=== PATIENT | male | born 1945 | race Caucasian/White ===

== ENCOUNTER → 2020-05-11 07:54 | Outpatient (BNVA) | payer OTHER, SELFPAY | PROVIDERS: Family Provider Emergency Medicine Emergency Medical Services; PCP Emergency Medicine Emergency Medical Services; Visit Provider Urology | DX: R97.20 Elevated prostate specific antigen [PSA] (principal); N13.8 Other obstructive and reflux uropathy; N40.1 Benign prostatic hyperplasia with lower urinary tract symptoms | CPT/HCPCS: 81003; 84153 ==

== ENCOUNTER → 2020-06-22 08:17 | Outpatient (BNVA) | payer OTHER, SELFPAY | PROVIDERS: Family Provider Emergency Medicine Emergency Medical Services; PCP Emergency Medicine Emergency Medical Services; Visit Provider Urology | DX: N40.1 Benign prostatic hyperplasia with lower urinary tract symptoms (principal) | CPT/HCPCS: 81003 ==

== ENCOUNTER → 2020-10-24 08:08 | Outpatient (BNVA) | payer OTHER, SELFPAY | PROVIDERS: Family Provider Emergency Medicine Emergency Medical Services; PCP Emergency Medicine Emergency Medical Services; Visit Provider Urology | DX: R97.20 Elevated prostate specific antigen [PSA] (principal); N40.1 Benign prostatic hyperplasia with lower urinary tract symptoms | CPT/HCPCS: 81003; 84153 ==

== ENCOUNTER → 2021-04-25 07:53 | Outpatient (BNVA) | payer OTHER, SELFPAY | PROVIDERS: Family Provider Emergency Medicine Emergency Medical Services; PCP Emergency Medicine Emergency Medical Services; Visit Provider Urology | DX: N40.1 Benign prostatic hyperplasia with lower urinary tract symptoms (principal); R97.20 Elevated prostate specific antigen [PSA] | CPT/HCPCS: 81003 ==

== ENCOUNTER → 2021-10-26 09:16 | Outpatient (BNVA) | payer OTHER, SELFPAY | PROVIDERS: Family Provider Emergency Medicine Emergency Medical Services; PCP Emergency Medicine Emergency Medical Services; Visit Provider Urology | DX: N40.1 Benign prostatic hyperplasia with lower urinary tract symptoms (principal); R97.20 Elevated prostate specific antigen [PSA]; N39.41 Urge incontinence; Z80.42 Family history of malignant neoplasm of prostate | CPT/HCPCS: 36415; 51741; 51798; 52000; 81003; 84153; 99213 ==

== ENCOUNTER 2022-05-01 10:41 | Outpatient (CLI) | payer OTHER, SELFPAY ==
[2022-05-01 11:52] LABS: Prostate Specific AG Urology 3.99 ng/mL (0-4)
== END 2022-05-01 10:42 | disposition home or self-care (01) ==
PROVIDERS: PCP Emergency Medicine Emergency Medical Services; Visit Provider Urology
DX: R97.20 Elevated prostate specific antigen [PSA] (principal)
CPT/HCPCS: 36415; 84153

== ENCOUNTER → 2022-05-07 12:59 | Outpatient (BNVA) | payer OTHER, SELFPAY | PROVIDERS: PCP Emergency Medicine Emergency Medical Services; Visit Provider Urology | DX: N40.1 Benign prostatic hyperplasia with lower urinary tract symptoms (principal); R97.20 Elevated prostate specific antigen [PSA]; N39.41 Urge incontinence; Z80.42 Family history of malignant neoplasm of prostate | CPT/HCPCS: 51798; 81003; 99213 ==

== ENCOUNTER 2022-11-01 10:15 | Emergency (ER) | payer OTHER, SELFPAY ==
[2022-11-01 10:42] VITALS: BP 175/80; PULSE 92; RESP 16; TEMP 36.7; O2SAT 98; BMI 28.7
[2022-11-01 11:09] LABS: Basophils % 0.2 %; Eosinophils # 0.1 10^3/uL (0.0-0.8); Eosinophils % 2.1 %; Hematocrit 45.8 % (37-53); Lymphocytes # 1.5 10^3/uL (0.8-4.8); Lymphocytes % 25.1 %; Mean Corpuscular HGB Conc 31.9 g/dL (30-55); Mean Corpuscular Hemoglobin 28.4 pg (27-33); Mean Corpuscular Volume 89.1 fl (82-101); Mean Platelet Volume 9.2 fL (7.4-10.4); Monocytes # 0.6 10^3/uL (0.2-0.9); Monocytes % 9.9 %; Neutrophils # 3.78 10^3/uL (1.8-7.7); Neutrophils % 62.5 %; Nucleated Red Blood Cells % 0 %; Platelet Count 225 10^3/cmm (157-399); Red Blood Count 5.14 10^6/uL (3.85-5.65); Red Cell Distribution Width 12.9 % (12.1-15.1); White Blood Count 6.05 10^3/uL (3.29-11.43)
[2022-11-01 11:28] LABS: INR 1.34 (0.8-1.2)
[2022-11-01 11:32] LABS: Alanine Aminotransferase 14 U/L (0-41); Albumin Level 4.4 g/dL (3.5-5.2); Alkaline Phosphatase 82 U/L (40-130); Anion Gap 11.9 (5-19); Aspartate Amino Transferase 17 U/L (0-40); Blood Urea Nitrogen 18 mg/dL (8-23); Calcium 9.4 mg/dL (8.5-10.5); Carbon Dioxide 30 mmol/L (22-29); Chloride 100 mmol/L (98-107); Creatinine Clr Calc Pharmacy 64.7169; Globulin 3.2 g/dL (1.3-4.6); Glucose 132 mg/dL (65-115); Osmolality Calculated 290 mOsm/kg (285-295); Potassium 3.9 mmol/L (3.5-5.1); Sodium 138 mmol/L (136-145); Total Bilirubin 0.4 mg/dL (0.15-1.2); Total Protein 7.6 g/dL (6.6-8.7)
[2022-11-01 13:30] VITALS: BP 179/89; PULSE 69; O2SAT 100
--- NOTE | 2022-11-01 13:41 | ED_ITS ---
HPI - Abdominal Pain General: Chief Complaint: Abdominal Pain Stated Complaint: [facility] Time Seen by Provider: 11/01/22 13:36 Source: patient Mode of arrival: ambulatory History of Present Illness: 77-year-old male presents to the emergency room with complaints of rectal bleeding for the last 3 to 4 days. It is streaking on the stool slightly discolored the water but has not completely discolor the toilet water. He has been intermittently having bleeding last couple of days. He is on Pradaxa for atrial fibrillation which she stopped taking yesterday he also has some mild left lower quadrant discomfort extending into the suprapubic area denies dysuria urgency or frequency. MD elicited complaint: abdominal pain Onset (ago): day(s) (4) Pain Consistency: intermittent Location: None Severity: mild Quality: cramping Radiation: suprapubic Exacerbating factors: nothing Relieving factors: nothing Associated Symptoms: Reports hematochezia; Denies no associated symptoms, anorexia, belching, bloating, change in bowel habits, change in stool character, chills, coffee ground emesis, constipation, GI cramping, diarrhea, dyspepsia, dysuria, excessive flatus, fever(s), heartburn, hematuria, hematemesis, fecal incontinence, loose stools, melena, nausea, poor appetite, syncope, vomiting and other Review of Systems Const: Denies: fever(s) or chills ENMT: Denies: throat pain, ear or mastoid pain, nasal discharge or nasal congestion Card: Denies: chest pain or syncope Resp: Denies: dyspnea, productive cough or non-productive cough GI: Reports: abdominal pain and hematochezia; Denies: nausea, vomiting, hematemesis, coffee ground emesis, heartburn, diarrhea, constipation, bloating, GI cramping, belching, excessive flatus, fecal incontinence, change in bowel habits, change in stool character, melena or other : Denies: dysuria, urinary frequency, urinary urgency or hematuria Skin/Breast: Denies: rash or pruritus PFS ED PFSH: Medical History BPH loc w urin obs/LUTS COPD (chronic obstructive pulmonary disease) Diabetes mellitus Elevated PSA Essential hypertension Heart disease Psoriasis PTSD (post-traumatic stress disorder) Unspecified atrial fibrillation Surgical History Hx of heart artery stent Family History Brother , AT AGE 56 PROSTATE Cancer Sister Cancer 2 SISTERS WITH BREAST CANCER Father , AT AGE 83 HEART ATTACK CAD (coronary artery disease) MOTHER AT AGE 86 UNKNOWN CAUSE Mother , at age 89 No problems noted. Social History Smoking and tobacco status: former smoker Second hand smoke exposure: Yes ( SMOKES) Alcohol intake: never Marital status: Current occupational status: retired Physical Exam Const: GENERAL APPEARANCE: cooperative and comfortable ORIENTATION/CONSCIOUSNESS: Yes awake, Yes oriented to person, Yes oriented to place and Yes oriented to time HENMT: COMMON NORMALS: normocephalic, atraumatic and hearing grossly normal bilaterally HEAD & SCALP: normocephalic and atraumatic Resp: COMMON NORMALS: normal respiratory effort, No retractions, No use of accessory muscles and clear to auscultation bilaterally AUSCULTATION: clear to auscultation bilaterally Cardio: COMMON NORMALS: regular rate, regular rhythm and No murmurs present (Cardio) RATE: regular rate RHYTHM: regular rhythm GI: COMMON NORMALS: No hepatosplenomegaly present AUSCULTATION: Yes normoactive bowel sounds PALPATION: Yes Tenderness to palpation present (GI) Details: LLQ (Mild), No Guarding due to palpation present (GI) and Yes No hepatosplenomegaly present Extremity: COMMON NORMALS: normal to inspection, capillary refill normal, no clubbing, cyanosis or edema, no calf tenderness and no pedal edema Neuro: SENSORIUM/ORIENTATION: Yes oriented to person, Yes oriented to place and Yes oriented to time Skin: COMMON NORMALS: no rashes or lesions noted GENERAL SKIN EXAM: no rashes or lesions noted Course Vital Signs: Vital signs: Vital Signs Temperature 98.1 F 11/01/22 10:42 Pulse Rate 69 11/01/22 13:30 Respiratory Rate 16 11/01/22 10:42 Blood Pressure 179/89 11/01/22 13:30 Pulse Oximetry 100 11/01/22 13:30 Oxygen Delivery Me thod Room Air 11/01/22 13:30 MDM - Abdominal Pain Medical Decision Making Hemoglobin stable vital signs stable as well as not tachycardic. He is having some streaking blood stool intermittently. Recommend holding the Pradaxa for 1 week start oral antibiotics for diverticulitis follow-up with primary care in the end of week if not improving or if bleeding worsens return to the emergency room or with primary care. Medical Records I reviewed the patient's medical records. Lab Data I reviewed the patient's lab results. 11/01/22 11:03 11/01/22 11:03 Labs/Radiology: Laboratory Results WBC 6.05 10^3/uL (3.29-11.43) 11/01/22 11:03 RBC 5.14 10^6/uL (3.85-5.65) 11/01/22 11:03 Hgb 14.60 g/dL (11.27-16.99) 11/01/22 11:03 Hct 45.8 % (37-53) 11/01/22 11:03 MCV 89.1 fl (82-101) 11/01/22 11:03 MCH 28.4 pg (27-33) 11/01/22 11:03 MCHC 31.9 g/dL (30-55) 11/01/22 11:03 RDW 12.9 % (12.1-15.1) 11/01/22 11:03 Plt Count 225 10^3/cmm (157-399) 11/01/22 11:03 MPV 9.2 fL (7.4-10.4) 11/01/22 11:03 Neut % (Auto) 62.5 % 11/01/22 11:03 Lymph % (Auto) 25.1 % 11/01/22 11:03 Angelina % (Auto) 9.9 % 11/01/22 11:03 Eos % (Auto) 2.1 % 11/01/22 11:03 Baso % (Auto) 0.2 % 11/01/22 11:03 Neut # (Auto) 3.78 10^3/uL (1.8-7.7) 11/01/22 11:03 Lymph # (Auto) 1.5 10^3/uL (0.8-4.8) 11/01/22 11:03 Angelina # (Auto) 0.6 10^3/uL (0.2-0.9) 11/01/22 11:03 Eos # (Auto) 0.1 10^3/uL (0.0-0.8) 11/01/22 11:03 Baso # (Auto) 0.0 10^3/uL (0.0-0.1) 11/01/22 11:03 Nucleated RBC % (auto) 0 % 11/01/22 11:03 Nucleated RBCs # 0.0 /100WBC 11/01/22 11:03 PT 17.00 SECONDS (12.1-14.9) H 11/01/22 11:03 INR 1.34 (0.8-1.2) H 11/01/22 11:03 Sodium 138 mmol/L (136-145) 11/01/22 11:03 Potassium 3.9 mmol/L (3.5-5.1) 11/01/22 11:03 Chloride 100 mmol/L (98-107) 11/01/22 11:03 Carbon Dioxide 30 mmol/L (22-29) H 11/01/22 11:03 Anion Gap 11.9 (5-19) 11/01/22 11:03 BUN 18 mg/dL (8-23) 11/01/22 11:03 Creatinine 1.1 mg/dL (0.7-1.2) 11/01/22 11:03 GFR Calculation Not Reportable 11/01/22 11:03 Glucose 132 mg/dL (65-115) H 11/01/22 11:03 Calculated Osmolality 290 mOsm/kg (285-295) 11/01/22 11:03 Calcium 9.4 mg/dL (8.5-10.5) 11/01/22 11:03 Total Bilirubin 0.4 mg/dL (0.15-1.2) 11/01/22 11:03 AST 17 U/L (0-40) 11/01/22 11:03 ALT 14 U/L (0-41) 11/01/22 11:03 Alkaline Phosphatase 82 U/L (40-130) 11/01/22 11:03 Total Protein 7.6 g/dL (6.6-8.7) 11/01/22 11:03 Albumin 4.4 g/dL (3.5-5.2) 11/01/22 11:03 Globulin 3.2 g/dL (1.3-4.6) 11/01/22 11:03 Discharge Plan Discharge Patient Disposition: Home Clinical Impression: Diverticulitis, Rectal bleeding, History of atrial fibrillation Condition: Stable Prescriptions: New Cipro 500 mg tablet 500 mg PO BID Qty: 14 0RF metronidazole 500 mg tablet 500 mg PO BID 7 Days Qty: 14 0RF No Action losartan 100 mg tablet 100 mg PO DAILY hydrochlorothiazide 25 mg tablet 25 mg PO DAILY potassium chloride 10 mEq capsule, extended release 10 meq PO DAILY diltiazem HCl 120 mg capsule,extended release 24hr 120 mg PO DAILY pravastatin 10 mg tablet 10 mg PO DAILY Pradaxa 150 mg capsule 150 mg PO BID adalimumab 40 mg/0.8 mL pen injector kit See Rx Instructions SUBCUT .WEEKLY Rx Instructions: inject one - 40 mg/0.8 mL pen every week SUBCUT .WEEKLY; cholecalciferol (vitamin D3) 625 mcg (25,000 unit) capsule PO aspirin [Adult Aspirin Regimen] 81 mg tablet,delayed release (DR/EC) 81 mg PO DAILY finasteride 5 mg tablet 5 mg PO QDAY Qty: 90 3RF oxybutynin chloride 5 mg tablet 5 mg PO BID Qty: 180 3RF tamsulosin 0.4 mg capsule 0.8 mg PO .AT BEDTIME Qty: 180 3RF Discharge Orders: Discharge ED (Routine); Ordered 11/01/22 Ordered By: Hipolito Fernández Referrals: Satish Garza DO [Primary Care Provider] - Discharge Diet: Usual diet Discharge Activity: Increase activity as tolerated Patient Instructions: Opioid Safety, Pain Management Activity Restrictions/Additional Instructions: You were seen today for rectal bleeding. Based on your history and presentation and exam you have diverticulitis. Recommend oral antibiotics x1 week. Hold the Pradaxa x1 week. If bleeding worsens or does not improve then recheck with your primary care doctor return to the emergency room. Coding Level of Care Code ED Anglesmith Helper for Mary Ball
[2022-11-01 13:56] VITALS: PULSE 68; O2SAT 98
== END 2022-11-01 13:57 | disposition home or self-care (01) ==
PROVIDERS: Emergency Medicine; Emergency Provider Family Medicine; PCP Emergency Medicine Emergency Medical Services
DX: K57.92 Diverticulitis of intestine, part unspecified, without perforation or abscess without bleeding (principal); Z79.82 Long term (current) use of aspirin; Z87.891 Personal history of nicotine dependence; J44.9 Chronic obstructive pulmonary disease, unspecified; E11.9 Type 2 diabetes mellitus without complications; I10 Essential (primary) hypertension
CPT/HCPCS: 36415; 80053; 85025; 85610; 99283

== ENCOUNTER → 2022-11-26 07:59 | Outpatient (BNVA) | payer OTHER, SELFPAY | PROVIDERS: PCP Emergency Medicine Emergency Medical Services; Referring Provider Emergency Medicine Emergency Medical Services; Visit Provider Surgery | DX: Z12.11 Encounter for screening for malignant neoplasm of colon (principal) | CPT/HCPCS: 99203 ==

== ENCOUNTER 2023-01-10 06:23 | Day surgery (SDC) | payer OTHER, SELFPAY ==
--- NOTE | 2023-01-10 05:54 | W.PM.OPSFHP ---
Same Day Surgery H&P Indication for Procedure/HPI DATE OF PROCEDURE: January 10, 2023 CHIEF COMPLAINT/INDICATIONFOR SURGICAL PROCEDURE: need for screening colonoscopy PREOP DIAGNOSIS: need for screening colonoscopy PLANNED PROCEDURE: Operation Date: 01/10/23 07:40 [place] [address]40 colon G0121 colonoscopy Z12.11(Not Applicable) - Kumar Vega MD Medications/Allergies* Home Medications Medication Instructions Recorded Confirmed Type adalimumab 40 mg/0.8 mL See Rx Instructions SUBCUT .WEEKLY 05/11/20 01/08/23 History subcutaneous pen kit aspirin 81 mg tablet,delayed 81 mg PO DAILY 05/11/20 01/08/23 History release (Adult Aspirin Regimen) cholecalciferol (vitamin D3) 625 625 mcg PO DAILY 05/11/20 01/08/23 History mcg (25,000 unit) capsule dabigatran etexilate 150 mg 150 mg PO BID 05/11/20 01/08/23 History capsule (Pradaxa) diltiazem HCl 120 mg 120 mg PO DAILY 05/11/20 01/08/23 History capsule,extended release 24 hr hydrochlorothiazide 25 mg tablet 25 mg PO DAILY 05/11/20 01/08/23 History losartan 100 mg tablet 100 mg PO DAILY 05/11/20 01/08/23 History potassium chloride 10 mEq 10 meq PO DAILY 05/11/20 01/08/23 History capsule,extended release pravastatin 10 mg tablet 10 mg PO QPM 05/11/20 01/08/23 History tamsulosin 0.4 mg capsule 0.8 mg PO QPM 01/08/23 01/08/23 History Allergies/Adverse Reactions Allergy/AdvReac Type Severity Reaction Status Date / Time albuterol Allergy unknown Verified 01/08/23 12:04 lisinopril Allergy unknown Verified 01/08/23 12:04 nifedipine Allergy Unknown Verified 01/08/23 12:04 prednisone Allergy unknown Verified 01/08/23 12:04 Pertinent History/Comorbid Conditions* Medical History (Updated 11/09/22 @ 00:01 by IAN Weston) BPH loc w urin obs/LUTS COPD (chronic obstructive pulmonary disease) Diabetes mellitus Elevated PSA Essential hypertension Heart disease Psoriasis PTSD (post-traumatic stress disorder) Unspecified atrial fibrillation Surgical History (Updated 05/11/20 @ 09:57 by Valery Cooper APRN) Hx of heart artery stent Family History (Updated 05/11/20 @ 08:00 by JEAN Weiss) Brother, AT AGE 56 PROSTATE Father, AT AGE 83 HEART ATTACK Mother, at age 89 CAD (coronary artery disease) Father MOTHER AT AGE 86 UNKNOWN CAUSE Cancer Brother Sister 2 SISTERS WITH BREAST CANCER Social History Smoking and tobacco/nicotine status: former use of tobacco/nicotine Second hand smoke exposure: Yes ( SMOKES) Alcohol intake: never Marital status: Current occupational status: retired Pertinent Exam Findings alert, oriented x 3 and clear to auscultation bilaterally Recommendations Surgery/Procedure today Coding Level of Care Code Acute Code for Chg Fwd Diagnoses
[2023-01-10 06:42] VITALS: BP 174/99; PULSE 87; RESP 18; TEMP 36.5; O2SAT 98; BMI 28.7
[2023-01-10] MEDS: sodium chloride 0.9% 1,000 ML 30 ML IV (06:44)
--- NOTE | 2023-01-10 07:05 | ANES.PREANE2 ---
Pre-Anesthetic Assessment Height/Weight: Height 1.78 m Weight 90.718 kg Temp Pulse Resp BP Pulse Ox O2 Del Method 97.7 F 87 18 174/99 98 Room Air 01/10/23 06:42 01/10/23 06:42 01/10/23 06:42 01/10/23 06:42 01/10/23 06:42 01/10/23 06:42 Preop Diagnosis: need for screening colonoscopy Operation Date: 01/10/23 07:40 [place] Procedures p 77668 colon G0121 colonoscopy Z12.11(Not Applicable) - Kumar Vega MD Was Beta Chuy taken within 24 hours: N/A Was Clonidine taken within 24 hours: N/A Last intake: Intake Last Liquid Date 01/09/23 Last Liquid Time 22:00 Last Solid Date 01/08/23 Last Solid Time 17:00 Social No alcohol and No tobacco Exam alert, oriented x 3, clear to auscultation bilaterally and regular rate & rhythm Airway Submandibular: within normal limits Cervical ROM: within normal limits Mallampati: Class II Dentition: false History/ROS No significant history except as noted and No significant complaints Pulmonary Chronic Obstructive Pulmonary Disease and Shortness of Breath (CPAP 14 hours/day) CV/HEM Atrial Fibrillation, Coronary Artery Disease and Hypertension None reported Hepatic None reported GI None reported Metabolic Diabetes Mellitus and Hyperlipidemia [facility] [place] Osteoarthritis/DJD Neuropsych Anxiety Anesthetic Plan ASA status: 3 Anesthesia: Anesthesia Evaluation and MAC Risk of > 500 ml blood loss (7ml/kg in children): No Medications/Allergies Home Medications Medication Instructions Recorded Confirmed Last Taken Type adalimumab 40 mg/0.8 mL See Rx Instructions SUBCUT .WEEKLY 05/11/20 01/10/23 01/07/23 History subcutaneous pen kit aspirin 81 mg tablet,delayed 81 mg PO DAILY 05/11/20 01/10/23 01/08/23 History release (Adult Aspirin Regimen) cholecalciferol (vitamin D3) 625 625 mcg PO DAILY 05/11/20 01/10/23 01/09/23 History mcg (25,000 unit) capsule dabigatran etexilate 150 mg 150 mg PO BID 05/11/20 01/10/23 01/06/23 History capsule (Pradaxa) diltiazem HCl 120 mg 120 mg PO DAILY 05/11/20 01/10/23 01/10/23 History capsule,extended release 24 hr hydrochlorothiazide 25 mg tablet 25 mg PO DAILY 05/11/20 01/10/23 01/09/23 History losartan 100 mg tablet 100 mg PO DAILY 05/11/20 01/10/23 01/09/23 History potassium chloride 10 mEq 10 meq PO DAILY 05/11/20 01/10/23 01/09/23 History capsule,extended release pravastatin 10 mg tablet 10 mg PO QPM 05/11/20 01/10/23 01/09/23 History finasteride 5 mg tablet 5 mg PO QDAY #90 tabs 10/24/20 01/10/23 01/09/23 Rx oxybutynin chloride 5 mg tablet 5 mg PO BID #180 tabs 05/07/22 01/10/23 01/09/23 Rx polyethylene glycol 3350 17 17 g PO DAILY #238 grams 11/26/22 01/10/23 01/09/23 Rx gram/dose oral powder (Miralax) tamsulosin 0.4 mg capsule 0.8 mg PO QPM 01/08/23 01/10/23 01/09/23 History Allergies Allergy/AdvReac Type Severity Reaction Status Date / Time albuterol Allergy unknown Verified 01/10/23 06:40 lisinopril Allergy unknown Verified 01/10/23 06:40 nifedipine Allergy Unknown Verified 01/10/23 06:40 prednisone Allergy unknown Verified 01/10/23 06:40 Current Medications Generic Name Dose Route Start Last Admin Trade Name Freq PRN Reason Stop Dose Admin Sodium Chloride 1,000 mls @ 30 mls/hr 01/10/23 06:30 01/10/23 06:44 Sodium Chloride 0.9% IV 30 mls/hr .Q24H PATY Administration PFSH Anesthesia Medical History BPH loc w urin obs/LUTS COPD (chronic obstructive pulmonary disease) Diabetes mellitus Elevated PSA Essential hypertension Heart disease Psoriasis PTSD (post-traumatic stress disorder) Unspecified atrial fibrillation Surgical History Hx of heart artery stent Family History Brother , AT AGE 56 PROSTATE Cancer Sister Cancer 2 SISTERS WITH BREAST CANCER Father , AT AGE 83 HEART ATTACK CAD (coronary artery disease) MOTHER AT AGE 86 UNKNOWN CAUSE Mother , at age 89 No problems noted. Social History Smoking and tobacco/nicotine status: former use of tobacco/nicotine Second hand smoke exposure: Yes ( SMOKES) Alcohol intake: never Marital status: Current occupational status: retired Data Anesthesia Cardiac Studies: No Data to Display
[2023-01-10 08:34] VITALS: BP 106/59; PULSE 63; RESP 20; TEMP 36.1; O2SAT 94
[2023-01-10 08:48] VITALS: BP 115/63; PULSE 68; RESP 17; O2SAT 94
--- NOTE | 2023-01-10 09:05 | ANE.PACU2 ---
Inpatient post-anesthesia follow up: Airway intact: Yes Vital signs: Temperature 97.0 F Pulse Rate 68 Respiratory Rate 17 Blood Pressure 115/63 Pulse Oximetry 94 Oxygen Delivery Me thod Room Air Oxygen Flow Rate Fraction of Inspir ed Oxygen Hydration adequate: Yes Nausea and vomiting: No Pain level: 1 Mental status: Baseline
== END 2023-01-10 09:12 | disposition home or self-care (01) ==
PROVIDERS: PCP Emergency Medicine Emergency Medical Services; Visit Provider Surgery
PROC: 0DJD8ZZ Inspection of Lower Intestinal Tract, Via Natural or Artificial Opening Endoscopic (ICD-10-PCS; CPT 45378; principal; 2023-01-10 07:40)
DX: Z12.11 Encounter for screening for malignant neoplasm of colon (principal); K57.30 Diverticulosis of large intestine without perforation or abscess without bleeding; N40.1 Benign prostatic hyperplasia with lower urinary tract symptoms; N13.8 Other obstructive and reflux uropathy; J44.9 Chronic obstructive pulmonary disease, unspecified; E11.9 Type 2 diabetes mellitus without complications; I11.0 Hypertensive heart disease with heart failure; I50.9 Heart failure, unspecified; Z87.891 Personal history of nicotine dependence; I48.91 Unspecified atrial fibrillation; I25.10 Atherosclerotic heart disease of native coronary artery without angina pectoris
CPT/HCPCS: 45378; J2704; J7030

== ENCOUNTER → 2023-03-13 13:21 | Outpatient (BNVA) | payer OTHER, SELFPAY | PROVIDERS: PCP Emergency Medicine Emergency Medical Services; Referring Provider Emergency Medicine Emergency Medical Services; Visit Provider Internal Medicine Cardiovascular Disease | DX: I48.91 Unspecified atrial fibrillation (principal); Z79.01 Long term (current) use of anticoagulants; J44.9 Chronic obstructive pulmonary disease, unspecified; E78.5 Hyperlipidemia, unspecified; E11.9 Type 2 diabetes mellitus without complications; I11.9 Hypertensive heart disease without heart failure; Z87.891 Personal history of nicotine dependence | CPT/HCPCS: 99204 ==

== ENCOUNTER 2023-03-20 11:50 | Emergency (ER) | payer OTHER, SELFPAY ==
[2023-03-20 11:58] VITALS: BP 128/67; PULSE 95; RESP 16; TEMP 37.1; O2SAT 98; BMI 28.3
--- NOTE | 2023-03-20 12:06 | XR_ITS ---
WS: [id number] XR ankle LT min 3V* [id number] REASON FOR EXAM: injury FINDINGS: Soft tissue swelling around the malleolar line bilaterally. No fracture identified. The joint spaces of the left ankle are intact. IMPRESSION: Soft tissue swelling around the ankle with no bone or joint abnormality identified.
--- NOTE | 2023-03-20 12:06 | XR_ITS ---
WS: [id number] XR foot LT min 3V* [id number] REASON FOR EXAM: injury FINDINGS: No fracture identified. Joint spaces of the forefoot, midfoot, and hindfoot are intact and relatively well preserved for age. Calcaneal enthesophytes. No significant soft tissue abnormality. IMPRESSION: No acute abnormality.
--- NOTE | 2023-03-20 12:09 | XR_ITS ---
WS: [id number] XR knee LT 3V* [id number] REASON FOR EXAM: injury FINDINGS: Oblique fracture of the proximal third of the fibula. Mild anterior displacement of the distal fractu re fragment. No abnormality of the distal femur, tibia, or patella. Joint spaces of the left knee are intact and relatively well preserved. IMPRESSION: Fibular fracture as above.
--- NOTE | 2023-03-20 12:13 | ED_ITS ---
HPI - Extremity Problem General: Chief complaint: Extremity Injury, Lower Stated complaint: [facility], [facility] Time Seen by Provider: 03/20/23 12:06 Source: patient Mode of arrival: ambulatory Limitations: no limitations History of Present Illness: 77-year-old male who states that he had fell on Saturday landed on his left foot and ankle he has had bruising along with pain in that ankle foot and knee. States he is not really able to ambulate on it due to pain. Rates his pain a 5 out of 10 currently it is improved with rest denies any other injuries denies any his head Associated symptoms: Deny chest pain, fever(s) or rash Review of Systems Const: Denies: fever(s), chills, body aches or change in appetite Eyes: Denies: blurry vision or eye discomfort ENMT: Denies: throat pain or dental pain Card: Denies: chest pain Resp: Denies: dyspnea GI: Denies: abdominal pain, nausea, vomiting or diarrhea Musc: Reports: extremity pain; Denies: neck pain or back pain Skin/Breast: Denies: rash Neuro: Denies: headache(s) Psych: Denies: depression PFSH ED PFSH: Medical History Dyslipidemia Essential hypertension Anticoagulation adequate with anticoagulant therapy Psoriasis Unspecified atrial fibrillation Essential hypertension COPD (chronic obstructive pulmonary disease) PTSD (post-traumatic stress disorder) Heart disease Diabetes mellitus BPH loc w urin obs/LUTS Elevated PSA Surgical History Hx of heart artery stent Family History Brother , AT AGE 56 PROSTATE Cancer Sister Cancer 2 SISTERS WITH BREAST CANCER Father , AT AGE 83 HEART ATTACK CAD (coronary artery disease) MOTHER AT AGE 86 UNKNOWN CAUSE Mother , at age 89 No problems noted. Social History Smoking and tobacco/nicotine status: former use of tobacco/nicotine Second hand smoke exposure: Yes ( SMOKES) Alcohol intake: never Marital status: Current occupational status: retired Physical Exam Const: COMMON NORMALS: no acute distress, patient oriented x3 and healthy appearing HENMT: COMMON NORMALS: normocephalic and atraumatic HEAD & SCALP: normocephalic and atraumatic Neck/C-Spine: COMMON NORMALS: full ROM and supple Chest: COMMONS NORMALS: normal inspection of the chest Resp: COMMON NORMALS: normal respiratory effort Cardio: COMMON NORMALS: regular rate, regular rhythm and No murmurs present (Cardio) RATE: regular rate RHYTHM: regular rhythm Extremity: NARRATIVE EXTREMITY EXAM: Bruising noted to left foot along with tenderness to foot and ankle and knee. Neuro: COMMON NORMALS: patient oriented x3, moves all extremities and no focal motor deficits Psych: COMMON NORMALS: mental status grossly normal, Normal thought process present and cooperative THOUGHT PROCESS: Normal thought process present Skin: COMMON NORMALS: no rashes or lesions noted and no wounds GENERAL SKIN EXAM: no rashes or lesions noted Course Vital Signs: Vital signs: Vital Signs Temperature 98.7 F 03/20/23 11:58 Pulse Rate 73 03/20/23 13:01 Respiratory Rate 16 03/20/23 11:58 Blood Pressure 119/64 03/20/23 13:01 Pulse Oximetry 99 03/20/23 13:01 Oxygen Delivery Me thod Room Air 03/20/23 13:01 MDM - Extremity (Nontraumatic) Medical Decision Making Patient presents here with a ankle injury along with a proximal fibular fracture likely has a Maisonneuve type injury will place in an ankle splint patient is to be nonweightbearing I spoke to podiatry and patient is to follow-up with them return if worsening. Medical Records I reviewed the patient's medical records. XR interpretation done by ED provider, pending radiology final review Discharge Plan Discharge Patient Disposition: Home Clinical Impression: Fracture of fibula, proximal Injury of ankle, left Qualifiers: Encounter type: initial encounter Qualified Code(s): S99.912A - Unspecified injury of left ankle, initial encounter Condition: Stable Prescriptions: New hydrocodone-acetaminophen 5-325 mg tablet 1 tab PO Q6H PRN (Reason: pain) Qty: 14 0RF No Action losartan 100 mg tablet 100 mg PO DAILY hydrochlorothiazide 25 mg tablet 25 mg PO DAILY potassium chloride 10 mEq capsule, extended release 10 meq PO DAILY diltiazem HCl 120 mg capsule,extended release 24hr 120 mg PO DAILY pravastatin 10 mg tablet 10 mg PO QPM Pradaxa 150 mg capsule 150 mg PO BID adalimumab 40 mg/0.8 mL pen injector kit See Rx Instructions SUBCUT .WEEKLY Rx Instructions: inject one - 40 mg/0.8 mL pen every week SUBCUT .WEEKLY; cholecalciferol (vitamin D3) 625 mcg (25,000 unit) capsule 625 mcg PO DAILY aspirin [Adult Aspirin Regimen] 81 mg tablet,delayed release (DR/EC) 81 mg PO DAILY finasteride 5 mg tablet 5 mg PO QDAY Qty: 90 3RF oxybutynin chloride 5 mg tablet 5 mg PO BID Qty: 180 3RF polyethylene glycol 3350 [Miralax] 17 gram/dose powder 17 g PO DAILY PRN tamsulosin 0.4 mg capsule 0.8 mg PO QPM Discharge Orders: Discharge ED (Routine); Ordered 03/20/23 Ordered By: Zahraa Yen Referrals: Kumar Love DPM [Physician] - 1-3 days Satish Garza DO [Primary Care Provider] - Discharge Diet: Advance as tolerated Discharge Activity: Resume usual activity Patient Instructions: Leg Fracture (ED), Opioid Safety Coding Level of Care Code ED Shift Nurse Manager for Mary Ball
[2023-03-20] MEDS: HYDROcodone-acetaminophen 5-325 mg Tablet 1 TAB PO (12:30)
[2023-03-20 13:01] VITALS: BP 119/64; PULSE 73; O2SAT 99
[2023-03-20 14:55] VITALS: BP 119/64; PULSE 73; O2SAT 99
--- NOTE | 2023-03-20 16:43 | DCPLANNER ---
Message sent to podiatry for a follow up appointment for fibular fx.
== END 2023-03-20 14:58 | disposition home or self-care (01) ==
PROVIDERS: Emergency Provider Emergency Medicine; PCP Emergency Medicine Emergency Medical Services
DX: S82.832A Other fracture of upper and lower end of left fibula, initial encounter for closed fracture (principal); S99.912A Unspecified injury of left ankle, initial encounter; Z79.82 Long term (current) use of aspirin; Z87.891 Personal history of nicotine dependence; E78.5 Hyperlipidemia, unspecified; I10 Essential (primary) hypertension; J44.9 Chronic obstructive pulmonary disease, unspecified; E11.9 Type 2 diabetes mellitus without complications; W19.XXXA Unspecified fall, initial encounter
CPT/HCPCS: 29515; 73562; 73610; 73630; 99284; E0114

== ENCOUNTER 2023-03-25 06:00 | Outpatient (CLI) | payer OTHER, SELFPAY | END 2023-03-25 23:59 | disposition home or self-care (01) | LOC: SPT 03-26 10:07 | PROVIDERS: PCP Emergency Medicine Emergency Medical Services; Visit Provider Podiatrist Foot & Ankle Surgery | DX: Z46.89 Encounter for fitting and adjustment of other specified devices (principal); S82.839D Other fracture of upper and lower end of unspecified fibula, subsequent encounter for closed fracture with routine healing; X58.XXXD Exposure to other specified factors, subsequent encounter | CPT/HCPCS: 97760; 99204; L4361 ==

== ENCOUNTER 2023-04-03 05:33 | Day surgery (SDC) | payer OTHER, SELFPAY ==
[2023-04-03] VITALS (8 sets, daily range): BP systolic 113–177; BP diastolic 59–86; PULSE 75–89; RESP 16–17; TEMP 36.1–36.4; O2SAT 97–100
--- NOTE | 2023-04-03 | XR_ITS ---
WS: [id number] XR ankle LT 2V [id number] REASON FOR EXAM: CHASE PICS FINDINGS: Placement of trans tibiofibular anchors across the syndesmosis. Surgical appliances are intact and appear in proper position and alignment IMPRESSION: Tibiofibular syndesmosis fixation without abnormality
[2023-04-03] MEDS: gabapentin 300 mg Capsule PO (06:21)
[2023-04-03] MEDS: acetaminophen 1,000 MG/100 ML PIGGYBACK 400 MG IV (06:21)
[2023-04-03] MEDS: sodium chloride 0.9% 1,000 ML 30 ML IV (06:22)
[2023-04-03 06:24] LABS: Glucose Point of Care 111 mg/dL (70-110)
--- NOTE | 2023-04-03 06:32 | ECG_ITS ---
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 Measurements Intervals [place] Rate: 69 P: 0 RI: 0 QRS: 24 QRSD: 160 T: 19 QT: 465 QTc: 499 Interpretive Statements ATRIAL FIBRILLATION INDETERMINATE AXIS RIGHT BUNDLE BRANCH BLOCK [120+ ms QRS DURATION, UPRIGHT V1, 40+ ms S IN I/aVL/V4/V5/V6] No previous ECG available for comparison Electronically Signed On 04-03-2023 7:19:02 OPTICIAN APPRENTICE by Filiberto Kiran M.D. [id number]
--- NOTE | 2023-04-03 06:38 | W.PM.OPSUD ---
Surgery/Procedure H&P Update DATE OF PROCEDURE: April 03, 2023 DATE H&P PERFORMED: 03/25/23 H&P UPDATE INFORMATION: I have reviewed H&P completed within last 30 days, I have examined patient prior to procedure, No changes to prior documentation and H&P is in [facility] [place] on date indicated PREOP DIAGNOSIS: Left syndesmotic disruption PLANNED PROCEDURE: Operation Date: 04/03/23 07:00 Proposed Procedures p Syndesmotic Repair/ Open treatment of left ankle syndesmotic disruption(Left) - Kumar Love DPM
--- NOTE | 2023-04-03 06:54 | ANES.PREANE2 ---
Pre-Anesthetic Assessment Height/Weight: Height 1.78 m Weight 89.811 kg Temp Pulse Resp BP Pulse Ox O2 Del Method 97.6 F 87 17 177/85 99 Room Air 04/03/23 05:54 04/03/23 05:54 04/03/23 05:54 04/03/23 05:54 04/03/23 05:54 04/03/23 06:16 Preop Diagnosis: Left syndesmotic disruption Operation Date: 04/03/23 07:00 Proposed Procedures p Syndesmotic Repair/ Open treatment of left ankle syndesmotic disruption(Left) - Kumar Love DPM Familial anesthetic complications: None Was Beta Chuy taken within 24 hours: N/A Was Clonidine taken within 24 hours: N/A Last intake: Intake Last Liquid Date 04/02/23 Last Liquid Time 18:00 Last Solid Date 04/02/23 Last Solid Time 17:00 Social No alcohol and No tobacco 2nd hand smoke Exam alert, oriented x 3, clear to auscultation bilaterally and regular rate & rhythm Airway Mallampati: Class II Dentition: full Pulmonary Chronic Obstructive Pulmonary Disease CV/HEM Atrial Fibrillation, Coronary Artery Disease (stent) and Hypertension Metabolic Diabetes Mellitus Anesthetic Plan ASA status: 3 Anesthesia: General and Regional (specify below) Risk of > 500 ml blood loss (7ml/kg in children): No Medications/Allergies Home Medications Medication Instructions Recorded Confirmed Last Taken Type adalimumab 40 mg/0.8 mL See Rx Instructions SUBCUT .WEEKLY 05/11/20 04/02/23 03/26/23 History subcutaneous pen kit aspirin 81 mg tablet,delayed 81 mg PO DAILY 05/11/20 04/02/23 04/01/23 History release (Adult Aspirin Regimen) cholecalciferol (vitamin D3) 625 625 mcg PO DAILY 05/11/20 04/02/23 04/02/23 History mcg (25,000 unit) capsule dabigatran etexilate 150 mg 150 mg PO BID 05/11/20 04/02/23 04/01/23 History capsule (Pradaxa) diltiazem HCl 120 mg 120 mg PO DAILY 05/11/20 04/02/23 04/03/23 History capsule,extended release 24 hr hydrochlorothiazide 25 mg tablet 25 mg PO DAILY 05/11/20 04/02/23 04/02/23 History losartan 100 mg tablet 100 mg PO DAILY 05/11/20 04/02/23 04/01/23 History potassium chloride 10 mEq 10 meq PO DAILY 05/11/20 04/02/23 04/02/23 History capsule,extended release pravastatin 10 mg tablet 10 mg PO QPM 05/11/20 04/02/23 04/01/23 History finasteride 5 mg tablet 5 mg PO QDAY #90 tabs 10/24/20 04/02/23 04/02/23 Rx oxybutynin chloride 5 mg tablet 5 mg PO BID #180 tabs 05/07/22 04/02/23 04/01/23 Rx tamsulosin 0.4 mg capsule 0.8 mg PO QPM 01/08/23 04/02/23 04/02/23 History polyethylene glycol 3350 17 17 g PO DAILY PRN Constipation 03/13/23 04/02/23 04/02/23 History gram/dose oral powder (Miralax) CAM boot #1 ea 03/25/23 03/25/23 Unknown Rx wheelchair #1 ea 03/25/23 03/25/23 Unknown Rx hydrocodone 5 mg-acetaminophen 325 1 tab PO Q6H PRN pain 3 days #12 04/01/23 04/02/23 04/02/23 Rx mg tablet tabs hydrocodone 5 mg-acetaminophen 325 1 tab PO Q6H PRN pain #20 tabs 04/03/23 Unknown Rx mg tablet Allergies Allergy/AdvReac Type Severity Reaction Status Date / Time albuterol Allergy unknown Verified 03/25/23 13:37 lisinopril Allergy unknown Verified 03/25/23 13:37 nifedipine Allergy Unknown Verified 03/25/23 13:37 prednisone Allergy unknown Verified 03/25/23 13:37 Current Medications Generic Name Dose Route Start Last Admin Trade Name Freq PRN Reason Stop Dose Admin Sodium Chloride 1,000 mls @ 30 mls/hr 04/03/23 06:00 04/03/23 06:22 Sodium Chloride 0.9% IV 04/04/23 05:59 30 mls/hr .Q24H PATY Administration PFSH Anesthesia Medical History Dyslipidemia Essential hypertension Anticoagulation adequate with anticoagulant therapy Psoriasis Unspecified atrial fibrillation Essential hypertension COPD (chronic obstructive pulmonary disease) PTSD (post-traumatic stress disorder) Heart disease Diabetes mellitus BPH loc w urin obs/LUTS Elevated PSA Surgical History Hx of heart artery stent Family History Brother , AT AGE 56 PROSTATE Cancer Sister Cancer 2 SISTERS WITH BREAST CANCER Father , AT AGE 83 HEART ATTACK CAD (coronary artery disease) MOTHER AT AGE 86 UNKNOWN CAUSE Mother , at age 89 No problems noted. Social History Smoking and tobacco/nicotine status: former use of tobacco/nicotine Second hand smoke exposure: Yes ( SMOKES) Alcohol intake: never Marital status: Current occupational status: retired Data Anesthesia Cardiac Studies: No Data to Display
--- NOTE | 2023-04-03 06:56 | ANES.PROC ---
Anesthesia Procedures Procedure/Date: 04/03/23 Nerve Block ^: Nerve Block 1: Main Anesthesia: general anesthesia Time Out Performed: Yes Consent: requested by attending/covering physician, from patient, from other, risks and benefits reviewed and patient agrees to proceed Nerve block location: popliteal (L) Anesthesia monitors applied: pulse oximetry, EKG and BP cuff Nerve block position: supine Anesthetic Used: ropivicaine 0.5% (30 ml) and with decadron (4 mg) Ultrasound used to: recognize landmarks Nerve Stimulator Used?: No Interscalene/Femoral BLK: 4 stimuplex 21 g needle used for position and inplane approach, visualize local anesthetic spread and no vascular puncture identified Patient Tolerated Procedure: well and no complications Complications: none
[2023-04-03] MEDS: ceFAZolin 2,000 MG in sodium chloride 0.9% (plus) 50 ML 100 MG IV (06:59)
--- NOTE | 2023-04-03 08:02 | P.BOP_ITS ---
Date of procedure: 04/03/2023 Surgeon name: Dr. Kumar Love D.P.M. Drug Enforcement Administration Agent(s) name(s): Gaston Xiong Procedure(s) performed: Direct syndesmotic repair left ankle Description of findings: Disruption of left ankle syndesmosis Estimated blood loss: 5 cc Tourniquet time: 32 minutes Specimen(s) removed: None Post-operative diagnosis: Left ankle syndesmotic disruption
--- NOTE | 2023-04-03 08:02 | PM.OP ---
Operative Report Date of procedure: April 03, 2023 Pre-op diagnosis: Left ankle syndesmotic injury Post-op diagnosis: Same Procedure done: Open treatment of left ankle syndesmotic disruption CPT 66242 Implants: Tightrope x 2 with 2 hole buttress plate from [employer] Surgeon: Kumar Love DPM Complications: None Procedure: Patient is a 77-year-old male that has a history of proximal left fibular fracture and syndesmotic injury. The extent of injury necessitates surgical intervention. A lengthy discussion regarding the procedure, including risks and complications has been had with the patient and is noted in the recent clinic note. Written and verbal consent have been obtained. All patient questions have been answered to the patient?s satisfaction. No written or verbal guarantees have been given or implied. The patient has been NPO since midnight. The history has been reviewed and the history and physical is current. The signed consent was confirmed and placed in the patient chart. Patient imaging has been reviewed and is consistent with the diagnosis. Under mild sedation, the patient was brought into the operating room and placed on the table in the supine position. IV antibiotics were given by the anesthesia team as preoperative surgical prophylaxis. General sedation was then performed by the anesthesiateam. A popliteal block was performed by the anesthesia department. A pneumatic tourniquet was then placed about the left thigh. The operative extremity was then prepped and draped in the usual fashion. The extremity was then elevated and exsanguinated before the tourniquet was inflated to 325 mmHg. After inflation, the following procedure was then performed. A longitudinal incision approximately 4 cm in length was made directly over the lateral aspect of the fibula. Careful dissection through the subcutaneous tissue was performed, and the fascia was incised to expose the surgical field. Although the syndesmosis was not directly visualized due to the minimal incision, fluoroscopy was utilized to confirm the presence of instability. Under fluoroscopic guidance, reduction of the syndesmotic diastasis was achieved. A two-hole buttress plate from [employer] was meticulously positioned over the fibula to provide additional stability. Two [employer] tightropes were then passed through appropriate drill holes in the buttress plate and secured through corresponding holes in the tibia to firmly anchor the syndesmosis. The plate was meticulously placed to buttress the repaired syndesmosis. Final fluoroscopic images were obtained to ensure proper alignment and fixation of the syndesmosis. The wound was thoroughly irrigated, and meticulous hemostasis was achieved. Closure of the fascia and subcutaneous tissues was performed with absorbable sutures, followed by closure of the skin with interrupted nylon sutures. Sterile dressings were applied, and the limb was immobilized in a cam boot. The tourniquet was let down and good hyperemic response was noted to all digits of the left foot. The patient tolerated the procedure and anesthesia well and without complication. The patient was transported from the operating room to the recovery room with vital signs stable and vascular status intact to all digits of the left foot. The patient was given both written and verbal instructions to remain nonweightbearing to the operative extremity, to keep dressings/splint clean, dry and intact and to take pain medication as directed. The patient will follow-up in the outpatient setting at their scheduled appointment. The patient was discharged with my personal number and was instructed to call if any questions or issues should arise. They were discharged home once anesthesia criteria was met.
[2023-04-03] MEDS: HYDROcodone-acetaminophen 5-325 mg Tablet 1 TAB PO (08:49)
--- NOTE | 2023-04-03 09:15 | ANE.PACU2 ---
Inpatient post-anesthesia follow up: Airway intact: Yes Vital signs: Temperature 97 F Pulse Rate 75 Respiratory Rate 16 Blood Pressure 134/86 Pulse Oximetry 99 Oxygen Delivery Me thod Room Air Oxygen Flow Rate 8 Fraction of Inspir ed Oxygen Hydration adequate: Yes Nausea and vomiting: No Pain level: 1 Mental status: Baseline
== END 2023-04-03 09:15 | disposition home or self-care (01) ==
PROVIDERS: PCP Emergency Medicine Emergency Medical Services; Visit Provider Podiatrist Foot & Ankle Surgery
PROC: (CPT 27829; principal; 2023-04-03 07:00)
DX: S93.432A Sprain of tibiofibular ligament of left ankle, initial encounter (principal); W19.XXXA Unspecified fall, initial encounter; J44.9 Chronic obstructive pulmonary disease, unspecified; I48.91 Unspecified atrial fibrillation; I25.10 Atherosclerotic heart disease of native coronary artery without angina pectoris; Z95.5 Presence of coronary angioplasty implant and graft; I10 Essential (primary) hypertension; E11.9 Type 2 diabetes mellitus without complications; N40.1 Benign prostatic hyperplasia with lower urinary tract symptoms; N13.8 Other obstructive and reflux uropathy; Z87.891 Personal history of nicotine dependence; Z79.82 Long term (current) use of aspirin
CPT/HCPCS: 27829; 36416; 73600; 76000; 82962; 93005; C1713; J0131; J0690; J1100; J2371; J2405; J2704; J2795; J3010; J3490; J7030

== ENCOUNTER → 2023-04-17 12:36 | Outpatient (BNVA) | payer OTHER, SELFPAY | PROVIDERS: PCP Emergency Medicine Emergency Medical Services; Visit Provider Podiatrist Foot & Ankle Surgery | DX: E11.9 Type 2 diabetes mellitus without complications; S93.432D Sprain of tibiofibular ligament of left ankle, subsequent encounter; S82.832D Other fracture of upper and lower end of left fibula, subsequent encounter for closed fracture with routine healing; X58.XXXD Exposure to other specified factors, subsequent encounter | CPT/HCPCS: 73610; 99024 ==

== ENCOUNTER → 2023-05-01 13:31 | Outpatient (BNVA) | payer OTHER, SELFPAY | PROVIDERS: PCP Emergency Medicine Emergency Medical Services; Visit Provider Podiatrist Foot & Ankle Surgery | DX: E11.9 Type 2 diabetes mellitus without complications; S82.832A Other fracture of upper and lower end of left fibula, initial encounter for closed fracture; S99.912A Unspecified injury of left ankle, initial encounter; S93.432A Sprain of tibiofibular ligament of left ankle, initial encounter; X58.XXXA Exposure to other specified factors, initial encounter | CPT/HCPCS: 73610; 99024 ==

== ENCOUNTER → 2023-05-15 13:48 | Outpatient (BNVA) | payer OTHER, SELFPAY | PROVIDERS: PCP Emergency Medicine Emergency Medical Services; Visit Provider Podiatrist Foot & Ankle Surgery | DX: S82.832D Other fracture of upper and lower end of left fibula, subsequent encounter for closed fracture with routine healing; S93.432D Sprain of tibiofibular ligament of left ankle, subsequent encounter; X58.XXXD Exposure to other specified factors, subsequent encounter; Z98.890 Other specified postprocedural states; E11.9 Type 2 diabetes mellitus without complications | CPT/HCPCS: 73610; 99024 ==

== ENCOUNTER 2023-05-21 13:24 | Outpatient (RCR) | payer OTHER, SELFPAY | END 2023-05-26 23:59 | disposition home or self-care (01) | LOC: SPT 13:24 | PROVIDERS: PCP Emergency Medicine Emergency Medical Services; Visit Provider Podiatrist Foot & Ankle Surgery | DX: Z98.890 Other specified postprocedural states (principal) | CPT/HCPCS: 97110; 97161; 97530 ==

== ENCOUNTER 2023-05-27 06:00 | Outpatient (RCR) | payer OTHER, SELFPAY | END 2023-06-25 23:59 | disposition home or self-care (01) | LOC: SPT 06:00 | PROVIDERS: PCP Emergency Medicine Emergency Medical Services; Visit Provider Podiatrist Foot & Ankle Surgery | DX: Z98.890 Other specified postprocedural states (principal) | CPT/HCPCS: 97110; 97530 ==

== ENCOUNTER 2023-05-29 06:00 | Outpatient (CLI) | payer OTHER, SELFPAY | END 2023-05-29 06:01 | LOC: SPT 05-30 12:27 | PROVIDERS: PCP Emergency Medicine Emergency Medical Services; Visit Provider Podiatrist Foot & Ankle Surgery | DX: Z47.89 Encounter for other orthopedic aftercare (principal) | CPT/HCPCS: 97760; L1902 ==

== ENCOUNTER → 2023-05-29 13:15 | Outpatient (BNVA) | payer OTHER, SELFPAY | PROVIDERS: PCP Emergency Medicine Emergency Medical Services; Visit Provider Podiatrist Foot & Ankle Surgery | DX: M25.572 Pain in left ankle and joints of left foot (principal); X58.XXXD Exposure to other specified factors, subsequent encounter; S93.432D Sprain of tibiofibular ligament of left ankle, subsequent encounter; S82.832D Other fracture of upper and lower end of left fibula, subsequent encounter for closed fracture with routine healing; Z98.890 Other specified postprocedural states; E11.9 Type 2 diabetes mellitus without complications | CPT/HCPCS: 73610; 99024 ==

== ENCOUNTER 2023-06-26 06:00 | Outpatient (RCR) | payer OTHER, SELFPAY | END 2023-07-03 23:59 | disposition home or self-care (01) | LOC: SPT 06:00 | PROVIDERS: PCP Emergency Medicine Emergency Medical Services; Visit Provider Podiatrist Foot & Ankle Surgery | DX: Z98.890 Other specified postprocedural states (principal); E11.9 Type 2 diabetes mellitus without complications; S82.832D Other fracture of upper and lower end of left fibula, subsequent encounter for closed fracture with routine healing; S93.432D Sprain of tibiofibular ligament of left ankle, subsequent encounter; X58.XXXD Exposure to other specified factors, subsequent encounter | CPT/HCPCS: 97110; 97112; 97530; 99024 ==

== ENCOUNTER → 2023-07-18 12:35 | Outpatient (BNVA) | payer OTHER, SELFPAY | PROVIDERS: PCP Emergency Medicine Emergency Medical Services; Visit Provider Podiatrist Foot & Ankle Surgery | DX: Z98.890 Other specified postprocedural states (principal); E11.9 Type 2 diabetes mellitus without complications; S93.432D Sprain of tibiofibular ligament of left ankle, subsequent encounter; X58.XXXD Exposure to other specified factors, subsequent encounter | CPT/HCPCS: 99213 ==

== ENCOUNTER → 2023-09-04 08:08 | Outpatient (CLI) | payer OTHER, SELFPAY ==
--- NOTE | 2023-09-04 08:12 | FL_ITS ---
WS: [id number] Barium swallow and esophagram, Clinical Data: DIFFICULTY SWALLOWING Comparison: None. Fluoroscopy time: 1min [id number] # of spot films: 28 Findings: The patient swallowed the thin barium, and it flowed through the hypopharynx without hesitation. No stricture, mass, polyp or erosion was seen. There was minimal penetration but no aspiration. The barium entered the esophagus and there was normal motility throughout. No reflux, stricture, poly p, mass, erosion or ulcer was noted. There was a small sliding hiatal hernia. The barium passed marlen lly into the stomach. FL/FL barium swallow [id number] Impression: 1. Minimal penetration of barium into the trachea but no aspiration. 2. Small sliding hiatal hernia without reflux.
== END | disposition home or self-care (01) ==
LOC: RAD 08:08
PROVIDERS: PCP Nurse Practitioner Family; Visit Provider Family Medicine
DX: R13.10 Dysphagia, unspecified (principal); K44.9 Diaphragmatic hernia without obstruction or gangrene
CPT/HCPCS: 74220

== ENCOUNTER 2023-10-17 06:00 | Outpatient (RCR) | payer OTHER, SELFPAY | END 2023-10-26 18:00 | disposition home or self-care (01) | LOC: SST 06:00 | PROVIDERS: Visit Provider Nurse Practitioner Family | DX: R13.10 Dysphagia, unspecified (principal) | CPT/HCPCS: 92526; 92610 ==

== ENCOUNTER 2023-10-27 06:09 | Outpatient (RCR) | payer OTHER, SELFPAY | END 2023-11-25 23:59 | disposition home or self-care (01) | LOC: SST 06:09 | PROVIDERS: Visit Provider Nurse Practitioner Family | DX: R13.10 Dysphagia, unspecified (principal) | CPT/HCPCS: 92526 ==

== ENCOUNTER → 2023-12-09 13:15 | Outpatient (BNVA) | payer OTHER, SELFPAY | PROVIDERS: PCP Nurse Practitioner Family; Visit Provider Podiatrist Foot & Ankle Surgery | DX: S93.432A Sprain of tibiofibular ligament of left ankle, initial encounter; X58.XXXA Exposure to other specified factors, initial encounter; E11.9 Type 2 diabetes mellitus without complications; Z98.890 Other specified postprocedural states | CPT/HCPCS: 73630; 99213 ==

== ENCOUNTER → 2024-01-06 12:45 | Outpatient (BNVA) | payer OTHER, SELFPAY | PROVIDERS: PCP Nurse Practitioner Family; Visit Provider Podiatrist Foot & Ankle Surgery | DX: M72.2 Plantar fascial fibromatosis (principal); E11.9 Type 2 diabetes mellitus without complications; S93.432A Sprain of tibiofibular ligament of left ankle, initial encounter; X58.XXXA Exposure to other specified factors, initial encounter | CPT/HCPCS: 99213 ==

== ENCOUNTER → 2024-07-23 10:26 | Outpatient (BNVA) | payer OTHER, SELFPAY | PROVIDERS: PCP Nurse Practitioner Family; Visit Provider Podiatrist Foot & Ankle Surgery | DX: M72.2 Plantar fascial fibromatosis (principal); E11.9 Type 2 diabetes mellitus without complications; T84.84XA Pain due to internal orthopedic prosthetic devices, implants and grafts, initial encounter; S93.432A Sprain of tibiofibular ligament of left ankle, initial encounter; Y79.2 Prosthetic and other implants, materials and accessory orthopedic devices associated with adverse incidents; X58.XXXA Exposure to other specified factors, initial encounter | CPT/HCPCS: 99214 ==

== ENCOUNTER 2024-08-03 06:08 | Day surgery (SDC) | payer OTHER, SELFPAY ==
[2024-08-03] VITALS (8 sets, daily range): BP systolic 112–164; BP diastolic 65–84; PULSE 52–72; RESP 14–18; TEMP 36.1–36.7; O2SAT 94–99; BMI 27.2
--- NOTE | 2024-08-03 06:30 | ECG_ITS ---
[facility]: 2024-08-03 Pat Name: Chito Frod Department: Room: Gender: Male Entry Level Account Executive: : 1945 Requested By: Sandra Fischer Order Number: [id number] Noel MD: Filiberto Kiran M.D. Measurements Intervals [place] Rate: 61 P: 0 OR: 0 QRS: 64 QRSD: 166 T: 48 QT: 470 QTc: 476 Interpretive Statements ATRIAL FIBRILLATION INDETERMINATE AXIS RIGHT BUNDLE BRANCH BLOCK [120+ ms QRS DURATION, UPRIGHT V1, 40+ ms S IN I/aVL/V4/V5/V6] SEPTAL MYOCARDIAL INFARCTION , OF INDETERMINATE AGE [40+ ms Q WAVE IN V1/V2] Compared to ECG 04/03/2023 06:37:33 Myocardial infarct finding now present Electronically Signed On 08-03-2024 08:59:59 CDT by Filiberto Kiran M.D. [email or web address]
[2024-08-03] MEDS: sodium chloride 0.9% 1,000 ML 30 ML IV (06:47)
[2024-08-03] MEDS: acetaminophen 1,000 MG/100 ML PIGGYBACK 400 MG IV (06:47)
[2024-08-03 06:51] LABS: Glucose Point of Care 106 mg/dL (70-110)
--- NOTE | 2024-08-03 06:55 | ANES.PREANE2 ---
Pre-Anesthetic Assessment Height/Weight: Height 1.78 m Weight 86.183 kg Temp Pulse Resp BP Pulse Ox O2 Del Method 98.0 F 72 18 158/75 98 Room Air 08/03/24 06:30 08/03/24 06:30 08/03/24 06:30 08/03/24 06:30 08/03/24 06:30 08/03/24 06:30 Preop Diagnosis: Painful hardware left ankle Operation Date: 08/03/24 08:00 Proposed Procedures p Left Ankle Hardware Removal(Left) - Kumar Love DPM Familial anesthetic complications: Was told by nurse when he had his stent placed that he was doing something funny. Patient has no memory of any issues or complications at that time and didn't need to stay in hospital Was Beta Chuy taken within 24 hours: N/A Was Clonidine taken within 24 hours: N/A Last intake: Intake Last Liquid Date 08/02/24 Last Liquid Time 23:00 Last Solid Date 08/02/24 Last Solid Time 18:30 Social No alcohol and No tobacco Exam alert, oriented x 3, clear to auscultation bilaterally and regular rate & rhythm Airway Mallampati: Class II Dentition: false Pulmonary Chronic Obstructive Pulmonary Disease and Sleep Apnea CV/HEM Atrial Fibrillation and Coronary Artery Disease (stent) Metabolic Diabetes Mellitus and Hyperlipidemia Anesthetic Plan ASA status: 4 Anesthesia: MAC Risk of > 500 ml blood loss (7ml/kg in children): No Medications/Allergies Home Medications ?Medication ?Instructions ?Recorded ?Confirmed ?Last Taken ?Type adalimumab 40 mg/0.8 mL See Rx Instructions SUBCUT .WEEKLY 05/11/20 08/03/24 07/26/24 History subcutaneous pen kit aspirin 81 mg tablet,delayed 81 mg PO DAILY 05/11/20 08/03/24 08/02/24 History release (Adult Aspirin Regimen) cholecalciferol (vitamin D3) 625 625 mcg PO DAILY 05/11/20 08/03/24 08/02/24 History mcg (25,000 unit) capsule dabigatran etexilate 150 mg 150 mg PO BID 05/11/20 08/03/24 08/02/24 History capsule (Pradaxa) diltiazem HCl 120 mg 120 mg PO DAILY 05/11/20 08/03/24 08/02/24 History capsule,extended release 24 hr hydrochlorothiazide 25 mg tablet 25 mg PO DAILY 05/11/20 08/03/24 08/02/24 History losartan 100 mg tablet 100 mg PO DAILY 05/11/20 08/03/24 08/02/24 History potassium chloride 10 mEq 10 meq PO DAILY 05/11/20 08/03/24 08/02/24 History capsule,extended release pravastatin 10 mg tablet 10 mg PO QPM 05/11/20 08/03/24 08/02/24 History finasteride 5 mg tablet 5 mg PO QDAY #90 tabs 10/24/20 08/03/24 08/02/24 Rx oxybutynin chloride 5 mg tablet 5 mg PO BID #180 tabs 05/07/22 08/03/24 08/02/24 Rx tamsulosin 0.4 mg capsule 0.8 mg PO QPM 01/08/23 08/03/24 08/02/24 History polyethylene glycol 3350 17 17 g PO DAILY PRN Constipation 03/13/23 08/03/24 04/02/23 History gram/dose oral powder (Miralax) CAM boot #1 ea 03/25/23 07/23/24 Unknown Rx wheelchair #1 ea 03/25/23 07/23/24 Unknown Rx hydrocodone 5 mg-acetaminophen 325 1 tab PO Q6H PRN pain 5 days #20 04/12/23 08/03/24 07/31/24 Rx mg tablet tabs ASO brace #1 ea 05/29/23 07/23/24 Unknown Rx memantine 5 tab PO BID 07/30/24 08/03/24 08/02/24 History meclizine 25 mg tablet 25 mg PO TID 07/31/24 08/03/24 08/03/24 History Allergies Allergy/AdvReac Type Severity Reaction Status Date / Time albuterol Allergy unknown Verified 08/03/24 06:24 lisinopril Allergy unknown Verified 08/03/24 06:24 nifedipine Allergy Unknown Verified 08/03/24 06:24 prednisone Allergy unknown Verified 08/03/24 06:24 Current Medications Generic Name Dose Route Start Last Admin Trade Name Freq PRN Reason Stop Dose Admin Sodium Chloride 1,000 mls @ 30 mls/hr 08/03/24 06:30 08/03/24 06:47 Sodium Chloride 0.9% IV 06/10/25 06:29 30 mls/hr .Q24H PATY Administration PFSH Anesthesia Medical History Dyslipidemia Essential hypertension Anticoagulation adequate with anticoagulant therapy Psoriasis Unspecified atrial fibrillation Essential hypertension COPD (chronic obstructive pulmonary disease) PTSD (post-traumatic stress disorder) Heart disease Diabetes mellitus BPH loc w urin obs/LUTS Elevated PSA Surgical History Hx of heart artery stent Family History Brother , AT AGE 56 PROSTATE Cancer Sister Cancer 2 SISTERS WITH BREAST CANCER Father , AT AGE 83 HEART ATTACK CAD (coronary artery disease) MOTHER AT AGE 86 UNKNOWN CAUSE Mother , at age 89 No problems noted. Social History Smoking and tobacco/nicotine status: never used tobacco/nicotine Second hand smoke exposure: Yes ( SMOKES) Alcohol intake: never Marital status: Current occupational status: retired Data Anesthesia 08/03/24 06:47
[2024-08-03 07:20] LABS: Anion Gap 16.6 (5-19); Blood Urea Nitrogen 19 mg/dL (8-23); Calcium 9.3 mg/dL (8.5-10.5); Carbon Dioxide 22 mmol/L (22-29); Chloride 103 mmol/L (98-107); Creatinine Clr Calc Pharmacy 68.4891; Glucose 102 mg/dL (65-115); Osmolality Calculated 288 mOsm/kg (285-295); Potassium 3.6 mmol/L (3.5-5.1); Sodium 138 mmol/L (136-145)
--- NOTE | 2024-08-03 07:53 | P.HPUD_ITS ---
Surgery/Procedure H&P Update DATE OF PROCEDURE: August 03, 2024 DATE H&P PERFORMED: 07/23/24 H&P UPDATE INFORMATION: I have reviewed H&P completed within last 30 days, I have examined patient prior to procedure, No changes to prior documentation, H&P is in [facility] EMR on date indicated and Risks and benefits of the procedure reviewed PREOP DIAGNOSIS: Painful hardware left ankle PLANNED PROCEDURE: Operation Date: 08/03/24 08:00 Proposed Procedures p Left Ankle Hardware Removal(Left) - Kumar Love DPM
[2024-08-03] MEDS: ceFAZolin 2,000 mg SDV 2000 MG IVP (08:10)
[2024-08-03] MEDS: BUPivacaine 0.5% INJ 30 mL INJECTION (08:20)
--- NOTE | 2024-08-03 09:08 | P.OP_ITS ---
Operative Report Date of procedure: August 03, 2024 Surgeon: Kumra Love DPM Procedure: Date of procedure: 08/03/2024 Pre-op diagnosis: Painful hardware left ankle Post-op diagnosis: Same Post-op findings:orthopedic hardware left ankle removed Procedure done: Hardware removal left ankle CPT 20514 Implants: None Specimens removed: None Surgeon: Dr. Kumar Love DPM Hearing Aid Mechanic: Nishant Estimated blood loss: 5 cc Tourniquet time: 35 minutes Complications: None Patient is a 78-year-old male that has a history of painful hardware left ankle. The patient has had the aforementioned chief complaint for some time. Conservative treatment measures have been attempted and the patient has opted for surgical intervention at this time. A lengthy discussion regarding the procedure, including risks and complications has been had with the patient and is noted in the recent clinic note. Written and verbal consent have been obtained. All patient questions have been answered to the patient?s satisfaction. No written or verbal guarantees have been given or implied. The patient has been NPO since midnight. The history has been reviewed and the history and physical is current. The signed consent was confirmed and placed in the patient chart. Patient imaging has been reviewed and is consistent with the diagnosis. Under mild sedation, the patient was brought into the operating room and placed on the table in the supine position. IV antibiotics were given by the anesthesia team as preoperative surgical prophylaxis. MAC sedation was then performed by the anesthesiateam. A local field block was performed using 0.5% Marcaine plain. A pneumatic tourniquet was then placed about the left ankle. The operative extremity was then prepped and draped in the usual fashion. The extremity was then elevated and exsanguinated before the tourniquet was inflated to 250 attention was directed to the lateral aspect of the left ankle where a mmHg. After inflation, the following procedure was then performed. 3 cm incision was made using a #15 blade. Dissection was carried down through subcutaneous the superficial fascia to the level of the fibula. Orthopedic hardware was exposed. Sutures from tight rope were resected and tight rope buttons as well as plate were removed from the operative field. Site was irrigated with copious amounts of sterile saline before attention was directed to closure. Deep tissue was closed with 4-0 Vicryl followed by skin closure with 4-0 nylon in running interlocking fashion. 2 cm incision was made to medial aspect of left ankle using #15 blade. Dissection was carried down through subcutaneous the superficial fascia to the level of the medial tibia. Orthopedic hardware buttons were exposed. The proximal button was grasped with Jimmie and removed from the operative field including associated suture. Most distal suture button was identified dissected. Suture was unable to be removed. Button was cut from the suture and removed from the operative field. Site was irrigated with copious amounts of sterile saline. Attention was then directed to closure. Subcuticular closure was performed using 4-0 Vicryl followed by skin closure with 4-0 nylon in running interlocking fashion. Hemostasis was achieved prior to closure of both incisions via electrocautery. Incisions were dressed with Xeroform, 4 x 4 gauze, Kerlix, Coban. The patient tolerated the procedure and anesthesia well and without complication. The patient was transported from the operating room to the recovery room with vital signs stable and vascular status intact to all digits of the left foot. The patient was given both written and verbal instructions to remain weightbearing as tolerated to the operative extremity, to keep dressings/splint clean, dry and intact and to take pain medication as directed. The patient will follow-up in the outpatient setting at their scheduled appointment. The patient was discharged with my personal number and was instructed to call if any questions or issues should arise. They were discharged home once anesthesia criteria was met.
--- NOTE | 2024-08-03 10:00 | ANE.PACU2 ---
Inpatient post-anesthesia follow up: Airway intact: Yes Vital signs: Temperature 97.1 F Pulse Rate 57 Respiratory Rate 18 Blood Pressure 164/84 Pulse Oximetry 98 Oxygen Delivery Me thod Room Air Oxygen Flow Rate Fraction of Inspir ed Oxygen Hydration adequate: Yes Nausea and vomiting: No Pain level: 1 Mental status: Baseline
== END 2024-08-03 10:01 | disposition home or self-care (01) ==
PROVIDERS: Anesthesiology; PCP Nurse Practitioner Family; Visit Provider Podiatrist Foot & Ankle Surgery
PROC: (CPT 20680; principal; 2024-08-03 07:50)
DX: T84.84XA Pain due to internal orthopedic prosthetic devices, implants and grafts, initial encounter (principal); Y79.3 Surgical instruments, materials and orthopedic devices (including sutures) associated with adverse incidents; E11.9 Type 2 diabetes mellitus without complications; I48.91 Unspecified atrial fibrillation; E78.5 Hyperlipidemia, unspecified; I10 Essential (primary) hypertension; J44.9 Chronic obstructive pulmonary disease, unspecified; I25.10 Atherosclerotic heart disease of native coronary artery without angina pectoris; Z95.5 Presence of coronary angioplasty implant and graft; G47.30 Sleep apnea, unspecified; Z79.82 Long term (current) use of aspirin; Z79.899 Other long term (current) drug therapy; Z88.0 Allergy status to penicillin
CPT/HCPCS: 20680; 36416; 73600; 76000; 80048; 82962; 93005; J0131; J0690; J2704; J3490; J7030

== ENCOUNTER → 2024-08-11 15:21 | Outpatient (BNVA) | payer OTHER, SELFPAY | PROVIDERS: PCP Nurse Practitioner Family; Visit Provider Podiatrist Foot & Ankle Surgery | DX: M72.2 Plantar fascial fibromatosis (principal); E11.9 Type 2 diabetes mellitus without complications; T84.84XA Pain due to internal orthopedic prosthetic devices, implants and grafts, initial encounter; S93.432A Sprain of tibiofibular ligament of left ankle, initial encounter; Y79.2 Prosthetic and other implants, materials and accessory orthopedic devices associated with adverse incidents; X58.XXXA Exposure to other specified factors, initial encounter | CPT/HCPCS: 99024 ==

== ENCOUNTER → 2024-08-31 13:30 | Outpatient (BNVA) | payer OTHER, SELFPAY | PROVIDERS: PCP Nurse Practitioner Family; Visit Provider Podiatrist Foot & Ankle Surgery | DX: B35.1 Tinea unguium (principal); E11.69 Type 2 diabetes mellitus with other specified complication | CPT/HCPCS: 99213 ==

== ENCOUNTER → 2024-09-09 15:20 | Outpatient (BNVA) | payer OTHER, SELFPAY | PROVIDERS: PCP Nurse Practitioner Family; Visit Provider Podiatrist Foot & Ankle Surgery | DX: B35.1 Tinea unguium (principal); E11.69 Type 2 diabetes mellitus with other specified complication; I73.9 Peripheral vascular disease, unspecified | CPT/HCPCS: 11721; 11750; 99214; J9999 ==

== ENCOUNTER → 2024-09-14 13:56 | Outpatient (BNVA) | payer OTHER, SELFPAY | PROVIDERS: PCP Nurse Practitioner Family; Visit Provider Podiatrist Foot & Ankle Surgery | DX: E11.69 Type 2 diabetes mellitus with other specified complication (principal); B35.1 Tinea unguium; I73.9 Peripheral vascular disease, unspecified | CPT/HCPCS: 99213 ==

== ENCOUNTER 2024-09-20 18:47 | Observation (INO) | payer OTHER, SELFPAY ==
[2024-09-20] VITALS (9 sets, daily range): BP systolic 103–177; BP diastolic 63–86; PULSE 86–112; RESP 16–22; TEMP 36.7; O2SAT 95–97; BMI 22.9
--- OUTSIDE RECORDS SUMMARY | 2024-09-20 13:52 | XMS_ITS | Continuity of Care Document ---
Author Name [facility] Organization [facility] Care Team Providers Care [employer]orer [employer] Name Role Phone [facility] Unavailable Unavailable Problems Combined list of problems from Department of Defense and Veterans Affairs facilities. It does not include entries that were removed or entered in error. Problem Status Onset Date Problem Type Date of Resolution Comments Source AF- Atrial Fibrillation (SCT 31883751) Active Condition [facility] Allergic Rhinitis (SCT 04216499) Active Condition [facility] angina with stents x 29 august 2011 Active Condition [facility] Asthma (SCT 875979175) Active Condition [facility] Atrial fibrillation (SNOMED CT 82398655) Active Condition [facility] Benign Prostatic Hypertrophy With Outflow Obstruction ([facility] [id number]) Active Condition [facility] Bilateral age-related nuclear cataracts Active Condition [facility] CAD - Coronary Artery Disease ([facility] [id number]) Active Condition Apr 17, 2022 Entered By: MARTIN RUANO Comment: Hx. Stents. [facility] Chest pain Active Condition [facility] Chronic obstructive lung disease (SNOMED CT 24085155) Active Condition [facility] colonoscopy + hyperplastic polyps april 2010 Active Condition [facility] COPD - Chronic Obstructive Pulmonary Disease ([facility] 80784020) Active Condition [facility] Coronary Atherosclerosis of [place] Coronary Vessel Active Condition [facility] Diabetes Mellitus Type 2 (SCT 54630667) Active Condition Apr 17, 2023 Entered By: MARTIN RUANO Comment: Diet controlled. 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 clinically diagnoed. [facility] Dizziness (SNOMED CT 218254196) Active Condition [facility] Elevated PSA Active Condition [facility] Encounter for palliative care * Active Condition [facility] Enlarged prostate (SNOMED CT 260443786) Active Condition [facility] Essential hypertension (SNOMED CT 99313692) Active Condition [facility] ett ef 57 % with fixed anterior defect april 2010 Active Condition [facility] Exposure to potentially hazardous chemical Active Condition [place] [facility] Exposure to potentially hazardous substance Active [facility] Feeling irritable Active Condition [facility] h/o etoh abuse quit 1977 Active Condition [facility] Hand pain Active Condition [facility] Hiatal hernia Active Condition [facility] High risk drug monitoring status Active Condition [facility] HTN - Hypertension (SCT 16161506) Active Condition [facility] [facility] Hyperlipidemia (SCT 12240456) Active Condition [facility] lung nodules per ct scan of throax mar 2010. will repeat mar 2011 Active Condition Apr 11, 2011 Entered By: OSCAR SCRUGGS Comment: ct scan mar 2011 negative for nodule seen ct scan [facility] Memory impairment (SNOMED CT 561802488) Active Condition [facility] Microscopic hematuria (SNOMED CT 950572265) Active Condition Mar 13, 2013 Entered By: ALMA DELIA PEGUERO Comment: chronic [facility] Paroxysmal atrial fibrillation (SNOMED CT 515349352) Active Condition [facility] pft's wnl no copd april 2010 Active Condition [facility] Psoriasis Active Condition [place] [facility] Psoriasis (SNOMED CT 3806811) Active Condition [facility] Seizure Active Condition [facility] Seizure (SCT 20774154) Active Condition [facility] Tension Headache Active Condition Mar 05, 2014 Entered By: ERICKA DRISCOLL Comment: Cervical cephalgia [facility] 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 [facility] Diagnosis: ICD-10-CM L40.9 Psoriasis, unspecified Active Diagnosis [facility] [facility] Diagnosis: ICD-10-CM N40.1 Benign prostatic hyperplasia with lower urinary tract symp Active Diagnosis [facility] [facility] Diagnosis: ICD-10-CM R32 Unspecified urinary incontinence Active Diagnosis [facility] Diagnosis: ICD-10-CM E78.5 Hyperlipidemia, unspecified Active Diagnosis [facility] Diagnosis: ICD-10-CM Z00.00 Encntr for general adult medical exam w/o abnormal findings Active Diagnosis [facility] Diagnosis: ICD-10-CM E11.9 Type 2 diabetes mellitus without complications Active Diagnosis [facility] Diagnosis: ICD-10-CM I10 Essential (primary) hypertension Active Diagnosis [facility] Diagnosis: ICD-10-CM Z51.81 Encounter for therapeutic drug level monitoring Active Diagnosis [facility] [place] [facility] Diagnosis: ICD-10-CM I95.9 Hypotension, unspecified Active Diagnosis [facility] Diagnosis: ICD-10-CM R13.10 Dysphagia, unspecified Active Diagnosis [facility] Medications Combined list of outpatient medications from Department of Defense and Veterans Affairs facilities.Medications provided include 1) outpatient medications from the last 15 months, and 2) patient-reported medications. Medication Details Route Status Patient Instructions Prescription Expires Prescription Number Last Dispense Date Ordering Provider Order Date Order Qty Source ADALIMUMAB 40MG/0.8ML INJ,SYRINGE ,KIT INJECT 40MG/0.8 ML (SYR) UNDER THE SKIN EVERY WEEK FOR PLAQUE PSORIASI S SUBCUT ANEOUS DISCONT INUED 09/08/2025 [id number] 5 JACKIE AVENDANO III 2024 12 [facility] ADALIMUMAB- BWWD 40MG/0.8ML INJ,SYRINGE INJECT 40MG/0.8 ML (SYR) UNDER THE SKIN EVERY WEEK FOR PLAQUE PSORIASI S SUBCUT ANEOUS ACTIVE 05/19/2025 [id number] 5 RAINA UREÑA ISTEL G [address] [place] [address] [facility] ADALIMUMAB- BWWD 40MG/0.8ML INJ,SYRINGE INJECT 40MG/0.8 ML (SYR) UNDER THE SKIN EVERY WEEK FOR PLAQUE PSORIASI S SUBCUT ANEOUS DISCONT INUED 11/13/2024 [id number] 4 RAINA UREÑA ISTEL G [address] [place] [address] [facility] ADALIMUMAB- BWWD 40MG/0.8ML INJ,SYRINGE INJECT 40MG/0.8 ML (SYR) UNDER THE SKIN EVERY WEEK FOR PLAQUE PSORIASI S SUBCUT ANEOUS DISCONT INUED 12/06/2023 [id number] 4 SWATHI RUANO 2023 12 [facility] AMOXICILLIN TRIHYDRATE 875MG/CLAVU LANATE K 125MG TAB TAKE 1 TABLET BY MOUTH TWICE A DAY FOR URINARY TRACT INFECTIO N TAKE WITH FOOD. TAKE UNTIL GONE UNLESS OTHERWIS E DIRECTED . ORAL 10/03/2023 [id number] 4 RAINA UREÑA ISKIMMY G 2023 14 [place] [facility] APPLE CIDER VINEGAR CAP/TAB TAKE 1 CAP/TAB BY MOUTH TWICE A DAY ORAL ACTIVE BATOOL MIRANDA 2024 [facility] ASPIRIN 81MG TAB,EC TAKE ONE TABLET BY MOUTH ONCE A DAY ORAL ACTIVE SWATHI RUANO 2022 [facility] CHOLECALCIF SUSAN 25MCG (1,000UNIT) TAB TAKE ONE TABLET BY MOUTH ONCE A DAY ORAL ACTIVE SWATHI RUANO 2022 [facility] CYANOCOBALA MIN 1000MCG TAB TAKE ONE TABLET BY MOUTH ONCE A DAY FOR VITAMIN B12 SUPPLEME NTATION ORAL ACTIVE 03/13/2025 [id number] 5 MACHELLE GABRIEL 2024 90 [facility] CYANOCOBALA MIN 1000MCG TAB TAKE TWO TABLETS BY MOUTH ONCE A DAY FOR VITAMIN B12 SUPPLEME NTATION ORAL DISCONT INUED (EDIT) 09/14/2024 [id number] 4 RAINA UREÑA ISTEJorge Luis G 2023 200 [place] [facility] CYANOCOBALA MIN 1000MCG TAB TAKE ONE TABLET BY MOUTH ONCE A DAY FOR VITAMIN B12 SUPPLEME NTATION ORAL DISCONT INUED (EDIT) 09/03/2024 [id number] 4 RAINA UREÑA ISTEJorge Luis G 2023 100 [facility] CYANOCOBALA MIN 1000MCG TAB TAKE ONE TABLET BY MOUTH ORAL ACTIVE KELLY PEGUERO 2013 [facility] DABIGATRAN ETEXILATE 150MG CAP,ORAL TAKE ONE CAPSULE BY MOUTH TWICE A DAY FOR ANTICOAG ULATION TO THIN BLOOD. DO NOT OPEN CAPSULE. SWALLOW WHOLE. DO NOT OPEN PKG UNTIL READY FOR DOSE TO MAINTAIN STABILIT Y. ORAL ACTIVE 09/03/2025 [id number] [place] 2024 180 [place] [facility] DABIGATRAN ETEXILATE 150MG CAP,ORAL TAKE ONE CAPSULE BY MOUTH TWICE A DAY TO THIN BLOOD. DO NOT OPEN CAPSULE. SWALLOW WHOLE. DO NOT OPEN PKG UNTIL READY FOR DOSE TO MAINTAIN STABILIT Y. ORAL DISCONT INUED (EDIT) 10/09/2024 [id number] 5 PIA RAMOS 2023 180 [place] [facility] DABIGATRAN ETEXILATE 150MG CAP,ORAL TAKE ONE CAPSULE BY MOUTH TWICE A DAY TO THIN BLOOD. DO NOT OPEN CAPSULE. SWALLOW WHOLE. DO NOT OPEN PKG UNTIL READY FOR DOSE TO MAINTAIN STABILIT Y. ORAL DISCONT INUED 10/16/2023 [id number] 4 [place] 2022 180 [place] [facility] DILTIAZEM (EQV-TIAZAC AB4) 120MG 24HR CAP TAKE ONE CAPSULE BY MOUTH EVERY MORNING BEFORE A MEAL FOR HEART OR TO LOWER BLOOD PRESSURE ORAL ACTIVE 03/13/2025 [id number] 5 RAINA UREÑA ISTEL G [address] [place] [address] [facility] DILTIAZEM (EQV-TIAZAC AB4) 120MG 24HR CAP TAKE ONE CAPSULE BY MOUTH EVERY MORNING BEFORE A MEAL FOR HEART OR TO LOWER BLOOD PRESSURE ORAL DISCONT INUED 02/06/2024 [id number] 4 SWATHI RUANO [address] [place] [address] [facility] FINASTERIDE 5MG TAB TAKE ONE TABLET BY MOUTH ONCE A DAY FOR PROSTATE . SWALLOW WHOLE, DO NOT CRUSH, SPLIT, OR CHEW. ORAL ACTIVE 03/04/2025 [id number] 5 RAINA UREÑA ISTEL G [address] [place] [address] [facility] FINASTERIDE 5MG TAB TAKE ONE TABLET BY MOUTH ONCE A DAY FOR PROSTATE . SWALLOW WHOLE, DO NOT CRUSH, SPLIT, OR CHEW. ORAL DISCONT INUED 02/06/2024 [id number] 4 SWATHI RUANO 2023 90 [facility] FISH OIL 1000MG (500MG DHA/EPA) CAP,ORAL TAKE 1 CAPSULE (500MG OMEGA 3 FA) BY MOUTH EVERY DAY ORAL ACTIVE BHUPENDRA JIMENEZ 2012 [facility] [facility] FLUTICASONE PROPIONATE 50MCG/SPRAY SOLN,NASAL, 16GM INSTILL 2 SPRAYS IN NOSTRIL( S) ONCE A DAY FOR RHINITIS (MUST BE USED DIRECTED FOR MINIMUM OF 21 DAYS TO PROVIDE ADEQUATE BENEFITS ) NASAL DISCONT INUED 08/28/2024 [id number] 4 RAINA UREÑA ISTEJorge Luis G 2023 3 [facility] FLUTICASONE PROPIONATE 50MCG/SPRAY SOLN,NASAL, 16GM INSTILL 1 SPRAY IN NOSTRIL( S) ONCE A DAY FOR RHINITIS (MUST BE USED DIRECTED FOR MINIMUM OF 21 DAYS TO PROVIDE ADEQUATE BENEFITS ) NASAL 09/12/2024 [id number] 5 RAINA UREÑA ISTEJorge Luis G 2023 3 [facility] FOLIC ACID 1MG TAB TAKE ONE TABLET BY MOUTH ONCE A DAY FOR FOLIC ACID SUPPLEME NTATION TAKE WITH B12 AND FOOD ORAL ACTIVE 09/05/2025 [id number] 5 JACKIE AVENDANO III [address] [place] [address] [facility] FOLIC ACID 1MG TAB TAKE ONE TABLET BY MOUTH ONCE A DAY FOR FOLIC ACID SUPPLEME NTATION ORAL DISCONT INUED 09/14/2024 [id number] 5 RAINA UREÑA ISTEJorge Luis G 2023 100 [facility] HYDROCHLORO THIAZIDE 25MG TAB TAKE ONE TABLET BY MOUTH ONCE A DAY FOR BLOOD PRESSURE ORAL DISCONT INUED BY NATALIA Shah 02/06/2024 [id number] 4 SWATHI RUANO 2023 90 [facility] HYDROCHLORO THIAZIDE 25MG TAB TAKE ONE TABLET BY MOUTH ONCE A DAY FOR HIGH BLOOD PRESSURE ORAL 09/11/2024 [id number] 5 RAINA UREÑA ISTEL G 2023 90 [facility] HYDROCORTIS ONE 2.5% CREAM,TOP APPLY SPARINGL Y TO AFFECTED AREA(S) FOUR TIMES A DAY NEEDED FOR PLAQUE PSORIASI S FOR EXTERNAL USE ONLY. APPLY SPARINGL Y. TOPICA L ACTIVE 11/14/2024 [id number] 5 RAINA UREÑA ISTEL G 2023 60 [facility] [place] POTASSIUM 100MG TAB TAKE ONE TABLET BY MOUTH ONCE A DAY FOR HIGH BLOOD PRESSURE TO LOWER BLOOD PRESSURE ORAL ACTIVE 10/01/2024 [id number] 5 RAINA UREÑA ISTEL G 2023 90 [facility] [place] POTASSIUM 100MG TAB TAKE ONE-HALF TABLET BY MOUTH ONCE A DAY FOR HIGH BLOOD PRESSURE TO LOWER BLOOD PRESSURE ORAL DISCONT INUED (EDIT) 08/28/2024 [id number] 4 UREÑARAINA ISTEL G 2023 45 [facility] MECLIZINE HCL 25MG TAB,CHEWABL E CHEW AND SWALLOW ONE TABLET BY MOUTH THREE TIMES A DAY NEEDED FOR VERTIGO CHEWABLE TABLETS MAY BE CHEWED OR SWALLOWE D WHOLE. MAY CAUSE DROWSINE SS. ORAL ACTIVE 03/13/2025 [id number] 5 MACHELLE GABRIEL 2024 270 [facility] MECLIZINE HCL 25MG TAB,CHEWABL E CHEW AND SWALLOW ONE TABLET BY MOUTH THREE TIMES A DAY NEEDED FOR VERTIGO CHEWABLE TABLETS MAY BE CHEWED OR SWALLOWE D WHOLE. MAY CAUSE DROWSINE SS. ORAL DISCONT INUED (EDIT) 10/15/2024 [id number] 4 ERIC SIMPSON 2023 270 [facility] MECLIZINE HCL 25MG TAB,CHEWABL E CHEW AND SWALLOW ONE TABLET BY MOUTH THREE TIMES A DAY NEEDED FOR VERTIGO CHEWABLE TABLETS MAY BE CHEWED OR SWALLOWE D WHOLE. MAY CAUSE DROWSINE SS. ORAL DISCONT INUED 08/28/2024 [id number] 4 ARINA UREÑA ISTEL G 2023 90 [facility] MECLIZINE HCL 25MG TAB,CHEWABL E CHEW AND SWALLOW ONE TABLET BY MOUTH THREE TIMES A DAY NEEDED FOR VERTIGO CHEWABLE TABLETS MAY BE CHEWED OR SWALLOWE D WHOLE. MAY CAUSE DROWSINE SS. ORAL DISCONT INUED (EDIT) 10/15/2024 [id number] 4 MACHELLE GABRIEL Rafaela 2023 90 [facility] MECLIZINE HCL 25MG TAB,CHEWABL E CHEW AND SWALLOW ONE TABLET BY MOUTH THREE TIMES A DAY NEEDED FOR VERTIGO CHEWABLE TABLETS MAY BE CHEWED OR SWALLOWE D WHOLE. MAY CAUSE DROWSINE SS. ORAL DISCONT INUED (EDIT) 09/14/2023 [id number] 4 HEMANTH ROGERS R 2023 90 [facility] MEMANTINE HCL 5MG TAB TAKE ONE TABLET BY MOUTH EVERY MORNING AND TAKE TWO TABLETS EVERY EVENING FOR MEMORY ORAL ACTIVE 08/25/2025 [id number] 5 JACKIE AVENDANO E III 2024 270 [facility] MEMANTINE HCL 5MG TAB TAKE ONE TABLET BY MOUTH TWICE A DAY FOR MEMORY ORAL DISCONT INUED 06/24/2025 [id number] 5 MACHELLE GABRIEL 2024 180 [facility] MIRABEGRON 25MG TAB,SA TAKE ONE TABLET BY MOUTH ONCE A DAY FOR OVERACTI VE BLADDER SWALLOW WHOLE; DO NOT CRUSH, SPLIT, OR CHEW. ORAL ACTIVE 11/29/2024 [id number] 5 BATOOL MIRANDA [address] [place] [address] [facility] OXYBUTYNIN CL 5MG TAB TAKE ONE TABLET BY MOUTH TWICE A DAY ORAL DISCONT INUED BY PROVIDE R 03/13/2025 [id number] 5 RAINA UREÑA 2024 180 [facility] OXYBUTYNIN CL 5MG TAB TAKE ONE TABLET BY MOUTH TWICE A DAY ORAL DISCONT INUED 02/06/2024 [id number] 4 SWATHI RUANO 2023 180 [facility] POLYETHYLEN E GLYCOL 3350 PWDR,ORAL MIX AND DRINK 1 CAPFUL BY MOUTH ONCE A DAY FOR CONSTIPA TION (MEASURE WITH CAP AND MIX IN 8 OZ OF WATER) ORAL 04/10/2024 [id number] 4 SWATHI RUANO 2023 238 [facility] POTASSIUM CHLORIDE 20MEQ TAB,SA (DISPERSIBL E) TAKE ONE TABLET BY MOUTH ONCE A DAY FOR POTASSIU M SUPPLEME NTATION TAKE WITH FOOD ORAL ACTIVE 03/13/2025 [id number] 5 RAINA UREÑA ISTEL G 2024 90 [facility] POTASSIUM CHLORIDE 20MEQ TAB,SA (DISPERSIBL E) TAKE ONE AND ONE-HALF TABLETS BY MOUTH ONCE A DAY FOR POTASSIU M SUPPLEME NTATION FOR POTASSIU M SUPPLEME NTATION TAKE WITH FOOD ORAL DISCONT INUED (EDIT) 04/10/2024 [id number] 5 SWATHI RUANO 2023 135 [facility] PRAVASTATIN NA 20MG TAB TAKE ONE-HALF TABLET BY MOUTH EVERY EVENING TO LOWER CHOLESTE ROL ORAL ACTIVE 03/04/2025 [id number] 5 RAINA UREÑA ISTEL G 2024 45 [facility] PRAVASTATIN NA 20MG TAB TAKE ONE-HALF TABLET BY MOUTH EVERY EVENING TO LOWER CHOLESTE ROL ORAL DISCONT INUED 02/06/2024 [id number] 4 SWATHI RUANO 2023 45 [facility] TAMSULOSIN HCL 0.4MG CAP TAKE TWO CAPSULES BY MOUTH AT BEDTIME APPROXIM ATELY 30 MINUTES AFTER THE SAME MEAL EACH DAY (FOR PROSTATE ) ORAL ACTIVE 06/03/2025 [id number] 5 RAINA UREÑA ISTEL G 2024 180 [facility] TAMSULOSIN HCL 0.4MG CAP TAKE TWO CAPSULES BY MOUTH AT BEDTIME APPROXIM ATELY 30 MINUTES AFTER THE SAME MEAL EACH DAY (FOR PROSTATE ) ORAL DISCONT INUED 05/20/2024 [id number] 5 SWATHI RUANO 2023 180 [facility] Allergies, Adverse Reactions, Alerts Combined list of allergies from Department of [facility] and [facility] Affairs facilities. It does not include entries that were removed or entered in error. Substance Category Reaction Severity Reaction type Status Date Reported Comments Source ALBUTEROL Propensity to adverse reactions to drug (finding) Altered mental status, Bronchospas m active 5 [facility] ALBUTEROL Propensity to adverse reactions to drug (finding) active 8 [facility] ALBUTEROL/I PRATROPIUM Propensity to adverse reactions to drug (finding) Dizziness active 5 [facility] ALBUTEROL/I PRATROPIUM Propensity to adverse reactions to drug (finding) active 8 [facility] LISINOPRIL Propensity to adverse reactions to drug (finding) Cough active 1 [facility] LISINOPRIL Propensity to adverse reactions to drug (finding) active 8 [facility] NIFEDIPINE Propensity to adverse reactions to drug (finding) Nightmares active 2 [facility] NIFEDIPINE Propensity to adverse reactions to drug (finding) active 8 [facility] PREDNISONE Propensity to adverse reactions to drug (finding) Psychotic disorder active 5 [facility] PREDNISONE Propensity to adverse reactions to drug (finding) active 8 [facility] Immunizations Combined list of available immunizations from the Department of Defense and [facility] Affairs facilities. Immunization Series Date Given Administered By Site Reaction Lot Number CVX Code Drug Beam Dyer Status Comments Source INFLUENZA, SPLIT VIRUS, TRIVALENT, PF 2023 ELISSA RACHEL RIGHT DELTO ID [id number] 140 complet ed [facility] ZOSTER RECOMBINANT 2022 ADILENE MACIEL LEFT DELTO ID [id number] 187 complet ed [facility] INFLUENZA, HIGH-DOSE, QUADRIVALENT 2022 MARLEE POLLARD LEFT DELTO ID [id number] 197 complet ed [facility] INFLUENZA, INJECTABLE, QUADRIVALENT, PRESERVATIVE FREE 2021 150 complet ed [facility] INFLUENZA, INJECTABLE, QUADRIVALENT, PRESERVATIVE FREE 2021 150 complet ed [facility] COVID-19 (MODERNA), MRNA, LNP-S, PF, 100 MCG OR 50 MCG DOSE 3 2020 207 complet ed MOD; [id number]; 2 [facility] INFLUENZA, INJECTABLE, QUADRIVALENT, PRESERVATIVE FREE 2020 150 complet ed [facility] COVID-19 (MODERNA), MRNA, LNP-S, PF, 100 MCG/0.5ML DOSE OR 50 MCG/0.25ML DOSE 2 2020 207 complet ed HISTORICA L INFORMATI ON - FROM OTHER REGISTRY, [facility] COVID-19 (MODERNA), MRNA, LNP-S, PF, 100 MCG OR 50 MCG DOSE 2 2020 207 complet ed [facility] COVID-19 (MODERNA), MRNA, LNP-S, PF, 100 MCG OR 50 MCG DOSE 1 2020 207 complet ed [facility] INFLUENZA, INJECTABLE, QUADRIVALENT, PRESERVATIVE FREE 2018 150 complet ed [facility] INFLUENZA, INJECTABLE, QUADRIVALENT, PRESERVATIVE FREE 2018 150 complet ed [facility] PNEUMOCOCCAL POLYSACCHARID E [id number] 2017 33 complet ed [facility] INFLUENZA, SEASONAL, INJECTABLE, PRESERVATIVE FREE 2016 140 complet ed [facility] INFLUENZA, SEASONAL, INJECTABLE 2015 141 complet ed [facility] INFLUENZA, UNSPECIFIED FORMULATION 2015 88 complet [facility] VARICELLA ZOSTER (HISTORICAL) 2015 121 complet [facility] INFLUENZA, SEASONAL, INJECTABLE, PRESERVATIVE FREE 2015 140 complet [facility] TETANUS/DIPTH ERIA/PERTUSSI S (TDAP) (HISTORICAL) 2013 115 complet [facility] INFLUENZA, UNSPECIFIED FORMULATION 2013 88 complet [facility] PNEUMOCOCCAL CONJUGATE PCV 13 2013 133 complet ed [facility] INFLUENZA, UNSPECIFIED FORMULATION 2012 88 complet ed [facility] PNEUMOCOCCAL, UNSPECIFIED FORMULATION 2012 109 complet ed no reported reaction [facility] INFLUENZA, UNSPECIFIED FORMULATION 2012 88 complet ed no reported reaction [facility] TD(ADULT) UNSPECIFIED FORMULATION 2011 139 complet ed [facility] INFLUENZA, UNSPECIFIED FORMULATION 2011 NONE 88 complet ed sanofi pasteur/u [id number] ne30,2011 [facility] TD(ADULT) UNSPECIFIED FORMULATION 2010 139 complet ed San[employer]i Pasteur [id number], 01/10/12 [facility] Results Combined list of recent chemistry, hematology and other laboratory results from Department of Defense and Veterans Affairs, ranging from 15 months to all on record, depending upon the facility. Order Name Results Value Reference Range Date Interpretation Specimen Comments Source B12 COBALAMIN (VITAMIN B12) [MASS/VOLUME] IN SERUM OR PLASMA 940 pg/mL 213 - 816 06/15 H Specimen Type: SERUM No comment entered. Ordering Provider: MACHELLE GABRIEL Report Released Date/Time : Mar 12, 2024 12:01 PM Reporting Lab: [place] [facility] [address] [place] [address] Performin g Lab: [place] [facility] [address] [place] [address] [facility] CBC LEUKOCYTES [#/VOLUME] IN BLOOD BY AUTOMATED COUNT 5.8 10*3/u L 3.6 - 11.2 06/15 Specimen Type: BLOOD No comment entered. Ordering Provider: MACHELLE GABRIEL Report Released Date/Time : Mar 12, 2024 12:01 PM Reporting Lab: [place] [facility] [address] [place] [address] Performin g Lab: [place] [facility] [address] [place] [address] [facility] CBC ERYTHROCYTES [#/VOLUME] IN BLOOD BY AUTOMATED COUNT 5.21 10*6/u L 4.10 - 5.70 06/15 Specimen Type: BLOOD No comment entered. Ordering Provider: MACHELLE GABRIEL Report Released Date/Time : Mar 12, 2024 12:01 PM Reporting Lab: [place] [facility] [address] [place] [address] Performin g Lab: [place] [facility] [address] [place] [address] [facility] CBC HEMOGLOBIN [MASS/VOLUME] IN BLOOD 15.0 g/dL 13.1 - 16.8 06/15 Specimen Type: BLOOD No comment entered. Ordering Provider: MACHELLE GABRIEL Report Released Date/Time : Mar 12, 2024 12:01 PM Reporting Lab: [place] [facility] [address] [place] [address] Performin g Lab: [place] [facility] [address] [place] [address] [facility] CBC HEMATOCRIT [VOLUME FRACTION] OF BLOOD 46.5 38.2 - 48.4 06/15 Specimen Type: BLOOD No comment entered. Ordering Provider: MACHELLE GABRIEL Report Released Date/Time : Mar 12, 2024 12:01 PM Reporting Lab: [place] [facility] [address] [place] [address] Performin g Lab: [place] [facility] [address] [place] [address] [facility] CBC MCV [ENTITIC VOLUME] BY AUTOMATED COUNT 89.3 fL 80.0 - 100.0 06/15 Specimen Type: BLOOD No comment entered. Ordering Provider: MACHELLE GABREIL Report Released Date/Time : Mar 12, 2024 12:01 PM Reporting Lab: [place] [facility] [address] [place] [address] Performin g Lab: [place] [facility] [address] [place] [address] 8 [facility] CBC MCH [ENTITIC MASS] BY AUTOMATED COUNT 28.8 pg 27.0 - 34.0 06/15 Specimen Type: BLOOD No comment entered. Ordering Provider: MACHELLE GABRIEL Report Released Date/Time : Mar 12, 2024 12:01 PM Reporting Lab: [place] [facility] [address] [place] [address] Performin g Lab: [place] [facility] [address] [place] [address] 8 [facility] CBC MCHC [MASS/VOLUME] BY AUTOMATED COUNT 32.3 g/dL 33.0 - 36.0 06/15 L Specimen Type: BLOOD No comment entered. Ordering Provider: MACHELLE GABRIEL Report Released Date/Time : Mar 12, 2024 12:01 PM Reporting Lab: [place] [facility] [address] [place] [address] Performin g Lab: [place] [facility] [address] [place] [address] 8 [facility] CBC PLATELETS [#/VOLUME] IN BLOOD BY AUTOMATED COUNT 248 10*3/u L 150 - 400 06/15 Specimen Type: BLOOD No comment entered. Ordering Provider: MACHELLE GABRIEL Report Released Date/Time : Mar 12, 2024 12:01 PM Reporting Lab: [place] [facility] [address] [place] [address] 8 Performin g Lab: [place] [facility] [address] [place] [address] 8 [facility] CBC PLATELET MEAN VOLUME [ENTITIC VOLUME] IN BLOOD BY AUTOMATED COUNT 10.2 fL 7.5 - 11.2 06/15 Specimen Type: BLOOD No comment entered. Ordering Provider: MACHELLE GABRIEL Report Released Date/Time : Mar 12, 2024 12:01 PM Reporting Lab: [place] [facility] [address] [place] [address] 8 Performin g Lab: [place] [facility] [address] [place] [address] 8 [facility] CBC ERYTHROCYTE DISTRIBUTION WIDTH [RATIO] BY AUTOMATED COUNT 13.0 11.8 - 15.1 06/15 Specimen Type: BLOOD No comment entered. Ordering Provider: MACHELLE GABRIEL Report Released Date/Time : Mar 12, 2024 12:01 PM Reporting Lab: [place] [facility] [address] [place] [address] 8 Performin g Lab: [place] [facility] [address] [place] [address] 8 [facility] CBC LYMPHOCYTES/1 00 LEUKOCYTES IN BLOOD BY AUTOMATED COUNT 26.8 06/15 Specimen Type: BLOOD No comment entered. Ordering Provider: MACHELLE GABRIEL Report Released Date/Time : Mar 12, 2024 12:01 PM Reporting Lab: [place] [facility] [address] [place] [address] 8 Performin g Lab: [place] [facility] [address] [place] [address] 8 [facility] CBC MONOCYTES/100 LEUKOCYTES IN BLOOD BY AUTOMATED COUNT 8.8 06/15 Specimen Type: BLOOD No comment entered. Ordering Provider: MACHELLE GABRIEL Report Released Date/Time : Mar 12, 2024 12:01 PM Reporting Lab: [place] [facility] [address] [place] [address] 8 Performin g Lab: [place] [facility] [address] [place] [address] 8 [facility] CBC NEUTROPHILS/1 00 LEUKOCYTES IN BLOOD BY AUTOMATED COUNT 59.5 06/15 Specimen Type: BLOOD No comment entered. Ordering Provider: MACHELLE GABRIEL Report Released Date/Time : Mar 12, 2024 12:01 PM Reporting Lab: [place] [facility] [address] [place] [address] 8 Performin g Lab: [place] [facility] [address] [place] [address] 8 [facility] CBC EOSINOPHILS/1 00 LEUKOCYTES IN BLOOD BY AUTOMATED COUNT 4.5 06/15 Specimen Type: BLOOD No comment entered. Ordering Provider: MACHELLE GABRIEL Report Released Date/Time : Mar 12, 2024 12:01 PM Reporting Lab: [place] [facility] [address] [place] [address] 8 Performin g Lab: [place] [facility] [address] [place] [address] 8 [facility] CBC BASOPHILS/100 LEUKOCYTES IN BLOOD BY AUTOMATED COUNT 0.2 06/15 Specimen Type: BLOOD No comment entered. Ordering Provider: MACHELLE GABRIEL Report Released Date/Time : Mar 12, 2024 12:01 PM Reporting Lab: [place] [facility] [address] [place] [address] 8 Performin g Lab: [place] [facility] [address] [place] [address] 8 [facility] CBC LYMPHOCYTES [#/VOLUME] IN BLOOD BY AUTOMATED COUNT 1.55 10*3/u L 0.77 - 4.50 06/15 Specimen Type: BLOOD No comment entered. Ordering Provider: MACHELLE GABRIEL Report Released Date/Time : Mar 12, 2024 12:01 PM Reporting Lab: [place] [facility] [address] [place] [address] Performin g Lab: [place] [facility] [address] [place] [address] 8 [facility] CBC MONOCYTES [#/VOLUME] IN BLOOD BY AUTOMATED COUNT 0.51 10*3/u L 0.19 - 0.8 06/15 Specimen Type: BLOOD No comment entered. Ordering Provider: MACHELLE GABRIEL Report Released Date/Time : Mar 12, 2024 12:01 PM Reporting Lab: [place] [facility] [address] [place] [address] 8 Performin g Lab: [place] [facility] [address] [place] [address] 8 [facility] CBC NEUTROPHILS [#/VOLUME] IN BLOOD BY AUTOMATED COUNT 3.45 10*3/u L 2.10 - 8.00 06/15 Specimen Type: BLOOD No comment entered. Ordering Provider: MACHELLE GABRIEL Report Released Date/Time : Mar 12, 2024 12:01 PM Reporting Lab: [place] [facility] [address] [place] [address] 8 Performin g Lab: [place] [facility] [address] [place] [address] 8 [facility] CBC EOSINOPHILS [#/VOLUME] IN BLOOD BY AUTOMATED COUNT 0.26 10*3/u L 0.00 - 0.60 06/15 Specimen Type: BLOOD No comment entered. Ordering Provider: MACHELLE GABRIEL Report Released Date/Time : Mar 12, 2024 12:01 PM Reporting Lab: [place] [facility] [address] [place] [address] 8 Performin g Lab: [place] [facility] [address] [place] [address] 8 [facility] CBC BASOPHILS [#/VOLUME] IN BLOOD BY AUTOMATED COUNT 0.01 10*3/u L 0.00 - 0.20 06/15 Specimen Type: BLOOD No comment entered. Ordering Provider: MACHELLE GABRIEL Report Released Date/Time : Mar 12, 2024 12:01 PM Reporting Lab: [place] [facility] [address] [place] [address] Performin g Lab: [place] [facility] [address] [place] [address] 8 [facility] CBC IMMATURE GRANULOCYTES/ 100 LEUKOCYTES IN BLOOD BY AUTOMATED COUNT 0.2 06/15 Specimen Type: BLOOD No comment entered. Ordering Provider: MACHELLE GABRIEL Report Released Date/Time : Mar 12, 2024 12:01 PM Reporting Lab: [place] [facility] [address] [place] [address] 8 Performin g Lab: [place] [facility] [address] [place] [address] 8 [facility] CBC IMMATURE GRANULOCYTES [#/VOLUME] IN BLOOD BY AUTOMATED COUNT 0.01 10*3/u L 0.00 - 0.05 06/15 Specimen Type: BLOOD No comment entered. Ordering Provider: MACHELLE GABRIEL Report Released Date/Time : Mar 12, 2024 12:01 PM Reporting Lab: [place] [facility] [address] [place] [address] Performin g Lab: [place] [facility] [address] [place] [address] 8 [facility] CHOLESTEROL PANEL (PB) CHOLESTEROL [MASS/VOLUME] IN SERUM OR PLASMA 150 mg/dL 0 - 200 06/15 Specimen Type: PLASMA No comment entered. Ordering Provider: MACHELLE GABRIEL Report Released Date/Time : Mar 12, 2024 12:01 PM Reporting Lab: [place] [facility] [address] [place] [address] Performin g Lab: [place] [facility] [address] [place] [address] 8 [facility] CHOLESTEROL PANEL (PB) TRIGLYCERIDE [MASS/VOLUME] IN SERUM OR PLASMA 120 mg/dL 0 - 150 06/15 Specimen Type: PLASMA No comment entered. Ordering Provider: MACHELLE GABRIEL Report Released Date/Time : Mar 12, 2024 12:01 PM Reporting Lab: [place] [facility] [address] [place] [address] 8 Performin g Lab: [place] [facility] [address] [place] [address] 8 [facility] CHOLESTEROL PANEL (PB) CHOLESTEROL IN LDL [MASS/VOLUME] IN SERUM OR PLASMA BY CALCULATION 90.2 mg/dL 06/15 Specimen Type: PLASMA No comment entered. Ordering Provider: MACHELLE GABRIEL Report Released Date/Time : Mar 12, 2024 12:01 PM Reporting Lab: [place] [facility] [address] [place] [address] Performin g Lab: [place] [facility] [address] [place] [address] 8 [facility] CHOLESTEROL PANEL (PB) CHOLESTEROL IN HDL [MASS/VOLUME] IN SERUM OR PLASMA 35.8 mg/dL 40 06/15 L Specimen Type: PLASMA No comment entered. Ordering Provider: MACHELLE GABRIEL Report Released Date/Time : Mar 12, 2024 12:01 PM Reporting Lab: [place] [facility] [address] [place] [address] Performin g Lab: [place] [facility] [address] [place] [address] 8 [facility] CHOLESTEROL PANEL (PB) CHOLESTEROL IN HDL/CHOLESTER OL.TOTAL [MASS RATIO] IN SERUM OR PLASMA 23.9 25 06/15 Specimen Type: PLASMA No comment entered. Ordering Provider: MACHELLE GABRIEL Report Released Date/Time : Mar 12, 2024 12:01 PM Reporting Lab: [place] [facility] [address] [place] [address] Performin g Lab: [place] [facility] [address] [place] [address] 8 [facility] DIRECT LDL (MA-PB) CHOLESTEROL IN LDL [MASS/VOLUME] IN SERUM OR PLASMA BY DIRECT ASSAY 96.9 mg/dL 0 - 99.9 06/15 Specimen Type: PLASMA No comment entered. Ordering Provider: MACHELLE GABRIEL Report Released Date/Time : Mar 12, 2024 12:01 PM Reporting Lab: [place] [facility] [address] [place] [address] 8 Performin g Lab: [place] [facility] [address] [place] [address] 8 [facility] FOLATE (PB) FOLATE [MASS/VOLUME] IN SERUM OR PLASMA 18.2 ng/mL 7 - 20 06/15 Specimen Type: SERUM No comment entered. Ordering Provider: MACHELLE GABRIEL Report Released Date/Time : Mar 12, 2024 12:01 PM Reporting Lab: [place] [facility] [address] [place] [address] 8 Performin g Lab: [place] [facility] [address] [place] [address] 8 [facility] HGA1C HEMOGLOBIN A1C/HEMOGLOBI N.TOTAL IN BLOOD 6.3 4.0 - 6.0 06/15 H Specimen Type: BLOOD No comment entered. Ordering Provider: MACHELLE GABRIEL Report Released Date/Time : Mar 12, 2024 12:01 PM Reporting Lab: [place] [facility] [address] [place] [address] Performin g Lab: [place] [facility] [address] [place] [address] 8 [facility] IRON IRON [MASS/VOLUME] IN SERUM OR PLASMA 101 ug/dL 65 - 175 06/15 Specimen Type: PLASMA No comment entered. Ordering Provider: MACHELLE GABRIEL Report Released Date/Time : Mar 12, 2024 12:01 PM Reporting Lab: [place] [facility] [address] [place] [address] Performin g Lab: [place] [facility] [address] [place] [address] 8 [facility] RHEUMATOID FACTOR (PB) RHEUMATOID FACTOR [UNITS/VOLUME ] IN SERUM OR PLASMA 21.0 [IU]/m L 0 - 30 06/15 Specimen Type: SERUM No comment entered. Ordering Provider: MACHELLE GABRIEL Report Released Date/Time : Mar 12, 2024 12:01 PM Reporting Lab: [place] [facility] [address] [place] [address] 8 Performin g Lab: [place] [facility] [address] [place] [address] 8 [facility] URINE ALBUMIN PROFILE-ih (PB) ALBUMIN [MASS/VOLUME] IN URINE 19.15 mg/L 0 - 30 06/15 Specimen Type: URINE No comment entered. Ordering Provider: MACHELLE GABRIEL Report Released Date/Time : Mar 12, 2024 12:01 PM Reporting Lab: [place] [facility] [address] [place] [address] Performin g Lab: [place] [facility] [address] [place] [address] 8 [facility] URINE ALBUMIN PROFILE-ih (PB) ALBUMIN/CREAT ININE [MASS RATIO] IN URINE 18.21 ug/mg 06/15 Specimen Type: URINE No comment entered. Ordering Provider: MACHELLE GABRIEL Report Released Date/Time : Mar 12, 2024 12:01 PM Reporting Lab: [place] [facility] [address] [place] [address] 8 Performin g Lab: [place] [facility] [address] [place] [address] 8 [facility] URINE ALBUMIN PROFILE-ih (PB) CREATININE [MASS/VOLUME] IN URINE 105.16 mg/dL 06/15 Specimen Type: URINE No comment entered. Ordering Provider: MACHELLE GABRIEL Report Released Date/Time : Mar 12, 2024 12:01 PM Reporting Lab: [place] [facility] [address] [place] [address] Performin g Lab: [place] [facility] [address] [place] [address] [facility] [place] [facility] VITAMIN D, 25-HYDROXY 25-HYDROXYVIT KRAUSE D3 [MASS/VOLUME] IN SERUM OR PLASMA 63.7 ng/mL 30 - 96 06/15 Specimen Type: SERUM No comment entered. Ordering Provider: MACHELLE GABRIEL Report Released Date/Time : Mar 12, 2024 12:01 PM Reporting Lab: [place] [facility] [address] [place] [address] Performin g Lab: [place] [facility] [address] [place] [address] [facility] [place] [facility] Vital Signs Combined list of inpatient and outpatient Vital Signs from Department of Defense and Veterans Affairs, ranging from 12 months to all on record, depending upon the facility. Vital Sign Value Date Comments Source SYSTOLIC BLOOD PRESSURE 127 03/12/2024 09:52:00 [place] [facility] DIASTOLIC BLOOD PRESSURE 66 03/12/2024 09:52:00 [place] [facility] PULSE OXIMETRY 98 03/12/2024 09:52:00 [facility] [place] [facility] WEIGHT 195.8 03/12/2024 09:52:00 [place] [facility] BMI 28 kg/m2 03/12/2024 09:52:00 [place] [facility] PAIN 0 03/12/2024 09:52:00 [place] [facility] TEMPERATURE 97.9 03/12/2024 09:52:00 [place] [facility] PULSE 83 03/12/2024 09:52:00 [place] [facility] RESPIRATION 20 03/12/2024 09:52:00 [place] [facility] SYSTOLIC BLOOD PRESSURE 124 11/14/2023 11:27:11 [place] [facility] DIASTOLIC BLOOD PRESSURE 62 11/14/2023 11:27:11 [place] [facility] PULSE OXIMETRY 97 11/14/2023 11:27:11 [facility] [place] [facility] WEIGHT 196.1 11/14/2023 11:27:11 [place] [facility] BMI 28 kg/m2 11/14/2023 11:27:11 [place] [facility] PAIN 2 11/14/2023 11:27:11 [place] [facility] TEMPERATURE 98 11/14/2023 11:27:11 [facility] PULSE 82 11/14/2023 11:27:11 [facility] RESPIRATION 22 11/14/2023 11:27:11 [facility] SYSTOLIC BLOOD PRESSURE 150 10/01/2023 08:34:00 [facility] DIASTOLIC BLOOD PRESSURE 84 10/01/2023 08:34:00 [facility] Encounters Combined list of: 1) Encounters from Department of [facility] Affairs facilities going backup to the last 18 months, not all [place] inpatient encounters are included; 2) Encounters from the Department of [facility] facilities going backup to 280 months. Location Location Details Encounter Type Encounter Number Reason For Visit Attending Provider ADM Date DC Date Status Disposition Source [facility] Outpatient Encounter [id number] 03/25 [facility] N [facility] Outpatient Encounter [id number] 03/27 [facility] [place] [facility] HC PRO PHONE CALL 11-20 MIN [id number] Diagnos is: ICD-10- CM Z51.81 Encount er for therape utic drug level monitor FRANCOISE Wolfe 04/10 [facility] Outpatient Encounter [id number] Pablo RUANO 04/10 [facility]IO N [facility] OFFICE O/P EST MOD 30 MIN [id number] Diagnos is: ICD-10- CM I10 Essenti al (primar y) hyperte nsion Pablo RUANO 04/17 [facility] Outpatient Encounter [id number] [facility] N [place] [facility] Outpatient Encounter [id number] [place] [facility] Outpatient Encounter [id number] GABRIELA MACIEL A 04/25 [facility] N [facility] Outpatient Encounter [id number] 04/25 [facility] Outpatient Encounter [id number] 04/25 [facility] [place] [facility] Outpatient Encounter [id number] Fransisco VALLE 05/19 [place] [facility] [place] [facility] Outpatient Encounter [id number] 05/26 [place] [facility] Outpatient Encounter [id number] 07/14 [facility] Outpatient Encounter [id number] 07/17 [facility] OFF/OP EST JUNE X REQ PHY/QHP [id number] Diagnos is: ICD-10- CM R13.10 Dysphag ia, unspeci GABRIELA Granados 08/14 [facility] OFFICE O/P EST MOD 30 MIN [id number] Diagnos is: ICD-10- CM 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 N [facility] Outpatient Encounter [id number] 09/30 [facility] N [facility] Outpatient Encounter [id number] Diagnos is: ICD-10- CM I10 Essenti al (primar y) hyperte nsRAINA MauriceAdwoa STEJorge Luis G 09/30 [facility] Outpatient Encounter [id number] 10/01 [facility] [place] [facility] MTMS BY PHARM EST 15 MIN [id number] Diagnos is: ICD-10- CM Z51.81 Encount er for therape utic drug level monitor PIA Ojeda 10/08 [place] [facility] Outpatient Encounter [id number] 10/08 [facility] [place] [facility] Outpatient Encounter [id number] 10/09 [place] [facility] MTMS BY PHARM ADDL 15 MIN [id number] Diagnos is: ICD-10- CM E78.5 Hyperli pidemia , unspeci fiFransisco De La Cruz 10/14 [facility] Outpatient Encounter [id number] 10/16 [facility] Outpatient Encounter [id number] 11/03 [facility] [place] [facility] Outpatient Encounter [id number] 11/11 [place] [facility] Out[facility] Encounter [id number] 11/11 [facility] OFFICE O/P EST HI 40 MIN [id number] Diagnos is: ICD-10- CM I10 Essenti al (primar y) hyperte nsion MYNOR UREÑA STEJorge Luis G 11/13 [facility] Outpatient Encounter [id number] 11/21 [facility] Outpatient Encounter [id number] 11/28 [facility] Outpatient Encounter [id number] 12/03 [facility] MTMS BY PHARM ADDL 15 MIN [id number] Diagnos is: ICD-10- CM E11.9 Type 2 diabete s mellitu s without complic ations Fransisco GABRIEL 12/11 [facility] Outpatient Encounter [id number] 12/19 [facility] Outpatient Encounter [id number] 01/05 [facility] [place] [facility] Outpatient Encounter [id number] 03/02 [place] [facility] Outpatient Encounter [id number] MICHAEL BAPTISTE IGH E 03/12 [facility] OFFICE O/P EST MOD 30 MIN [id number] Diagnos is: ICD-10- CM Z00.00 Encntr for general adult medical exam w/o abnorma l finding s MYNOR UREÑA STEL G 03/12 [facility] MTMS BY PHARM ADDL 15 MIN [id number] Diagnos is: ICD-10- CM E78.5 Hyperli pidemia , unspeci fied [place] GABRIEL CARO W 03/12 [facility] Outpatient Encounter [id number] 03/17 [facility] Outpatient Encounter [id number] 03/26 [facility] Outpatient Encounter [id number] 05/02 [facility] Outpatient Encounter [id number] 05/18 [facility] Outpatient Encounter [id number] 06/01 [facility] MTMS BY PHARM ADDL 15 MIN [id number] Diagnos is: ICD-10- CM E78.5 Hyperli pidemia , unspeci fied [place] GABRIEL W 06/23 [facility] Outpatient Encounter [id number] 06/25 [facility] Outpatient Encounter [id number] MASSIMO ADAMES A 06/26 [facility] Outpatient [facility]counter [id number] 07/03 [facility] Outpatient [facility]counter [id number] 07/28 [facility] Outpatient [facility]counter [id number] 07/30 [facility] Outpatient Encounter [id number] 271 08/20 [facility] [place] Outpatient Encounter [id number] 08/[facility] ADDL 15 MIN [id number] Diagnos is: ICD-10- CM R32 Unspeci fied urinary inconti KAILEE Orourke 08/27 [facility] MTMS BY PHARM FITNESS PROFESSIONAL 15 MIN [id number] Diagnos is: ICD-10- CM 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 Social History Type Response Date Comment Sourc e Tobacco smoking status NHIS VA-TOBACCO FORMER USER 04/17/2023 [facility] History of tobacco use VA-TOBACCO QUIT 1 5 YRS OR MORE 04/17/2023 [facility] History of tobacco use VA-TOBACCO FORMER USER 04/17/2022 [facility] History of tobacco use VA-TOBACCO FORMER USER 04/13/2021 [facility] History of tobacco use VA-TOBACCO FORMER USER 03/15/2020 [facility] History of tobacco use VA-TOBACCO FORMER USER 03/12/2019 [facility] History of tobacco use QUIT TOBACCO >7 Y EARS AGO 09/11/2017 [facility] History of tobacco use QUIT TOBACCO >7 Y EARS AGO 2017 [facility] History of tobacco use CURRENT NON-SMOKER 02/23/2016 [facility] History of tobacco use ONS TOBACCO USE F ORMER GREATER THAN 7Y 06/17/2014 [facility] History of tobacco use ONS TOBACCO USE F ORMER GREATER THAN 7Y 06/06/2014 [facility] History of tobacco use ONS TOBACCO USE F ORMER GREATER THAN 7Y 06/02/2014 [facility] History of tobacco use ONS TOBACCO USE F ORMER GREATER THAN 7Y 05/07/2014 [facility] History of tobacco use ONS TOBACCO LIFET FRANNY NON-USER 06/26/2013 [facility] History of tobacco use QUIT TOBACCO >7 Y EARS AGO 03/11/2010 [facility] Plan of Care List of future care activities from [facility] facilities. Additional future care activities may be listed in the Assessment and Plan section. Date/Time Care Activity Care Activity Detail Facili ty 10/15/2024 AMBULATORY - MEDICINE [facility] Advance Directives List of completed, amended, or rescinded Advance Directives on record at [facility] facilities. An actual copy of the Directive is not included. Date Advance Directive Provider Source 10/22/2016 ADVANCE DIRECTIVE DISCUSSION [facility] 10/22/2016 ADVANCE DIRECTIVE ELE[facility] 10[facility]22/2016 ADVANCE DIRECTIVE DISCUSSION [facility] 04/20/2011 ADVANCE DIRECTIVE QUIANA [facility]
--- OUTSIDE RECORDS SUMMARY | 2024-09-20 13:52 | XMS_ITS | Continuity of Care Document ---
Author Name [facility] Organization [facility] Care Team Providers Care Air Brush Operator Name Role Phone [facility] Unavailable Unavailable Problems Combined list of problems from Department of Defense and Veterans Affairs facilities. It does not include entries that were removed or entered in error. Problem Status Onset Date Problem Type Date of Resolution Comments Source AF- Atrial Fibrillation (SCT 47854147) Active Condition [place] [facility] Allergic Rhinitis (SCT 85686333) Active Condition [place] [facility] angina with stents x 29 august 2011 Active Condition [facility] Asthma (SCT 015685667) Active Condition [place] [facility] Atrial fibrillation (SNOMED CT 92633060) Active Condition [facility] Benign Prostatic Hypertrophy With Outflow Obstruction ([facility] [id number]) Active Condition [place] [facility] Bilateral age-related nuclear cataracts Active Condition [facility] CAD - Coronary Artery Disease ([facility] 56755416) Active Condition Apr 17, 2022 Entered By: MARTIN RUANO Comment: Hx. Stents. [place] [facility] Chest pain Active Condition [facility] Chronic obstructive lung disease (SNOMED CT 83993973) Active Condition [facility] colonoscopy + hyperplastic polyps april 2010 Active Condition [facility] COPD - Chronic Obstructive Pulmonary Disease ([facility] 71481359) Active Condition [place] [facility] Coronary Atherosclerosis of [place] Coronary Vessel Active Condition [facility] Diabetes Mellitus Type 2 (SCT 39164721) Active Condition Apr 17, 2023 Entered By: MARTIN RUANO Comment: Diet controlled. 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 clinically diagnoed. [place] [facility] Dizziness (SNOMED CT 484921645) Active Condition [facility] Elevated PSA Active Condition [place] [facility] Encounter for palliative care * Active Condition [facility] Enlarged prostate (SNOMED CT 833187373) Active Condition [facility] Essential hypertension (SNOMED CT 82504926) Active Condition [facility] ett ef 57 % with fixed anterior defect april 2010 Active Condition [facility] Exposure to potentially hazardous chemical Active Condition [place] [facility] Exposure to potentially hazardous substance Active Condition [facility] Feeling irritable Active Condition [place] [facility] h/o etoh abuse quit 1977 Active Condition [facility] Hand pain Active Condition [facility] Hiatal hernia Active Condition [facility] High risk drug monitoring status Active Condition [facility] HTN - Hypertension (SCT 14240237) Active Condition [place] [facility] Hyperlipidemia (SCT 82856925) Active Condition [place] [facility] lung nodules per ct scan of throax mar 2010. will repeat mar 2011 Active Condition Apr 11, 2011 Entered By: OSCAR SCRUGGS Comment: ct scan mar 2011 negative for nodule seen ct scan [facility] Memory impairment (SNOMED CT 761925935) Active Condition [facility] Microscopic hematuria (SNOMED CT 498307277) Active Condition Mar 13, 2013 Entered By: ALMA DELIA PEGUERO Comment: chronic [facility] Paroxysmal atrial fibrillation (SNOMED CT 318820435) Active Condition [facility] pft's wnl no copd april 2010 Active Condition [facility] Psoriasis Active Condition [place] [facility] Psoriasis (SNOMED CT 6082710) Active Condition [facility] Seizure Active Condition [facility] Seizure (SCT 46118492) Active Condition [place] [facility] Tension Headache Active Condition Mar 05, 2014 Entered By: ERICKA DRISCOLL Comment: Cervical cephalgia [facility] 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 [facility] Diagnosis: ICD-10-CM L40.9 Psoriasis, unspecified Active Diagnosis [place] [facility] Diagnosis: ICD-10-CM N40.1 Benign prostatic hyperplasia with lower urinary tract symp Active Diagnosis [place] [facility] Diagnosis: ICD-10-CM R32 Unspecified urinary incontinence Active Diagnosis [facility] Diagnosis: ICD-10-CM E78.5 Hyperlipidemia, unspecified Active Diagnosis [facility] Diagnosis: ICD-10-CM Z00.00 Encntr for general adult medical exam w/o abnormal findings Active Diagnosis [facility] Diagnosis: ICD-10-CM E11.9 Type 2 diabetes mellitus without complications Active Diagnosis [facility] Diagnosis: ICD-10-CM I10 Essential (primary) hypertension Active Diagnosis [facility] Diagnosis: ICD-10-CM Z51.81 Encounter for therapeutic drug level monitoring Active Diagnosis [place] [facility] Diagnosis: ICD-10-CM I95.9 Hypotension, unspecified Active Diagnosis [facility] Diagnosis: ICD-10-CM R13.10 Dysphagia, unspecified Active Diagnosis [facility] Medications Combined list of outpatient medications [...] PSORIASI S SUBCUT ANEOUS DISCONT INUED 09/08/2025 [id number] 5 JACKIE AVENDANO III 2024 12 [facility] ADALIMUMAB- BWWD 40MG/0.8ML INJ,SYRINGE INJECT 40MG/0.8 ML (SYR) UNDER THE SKIN EVERY WEEK FOR PLAQUE PSORIASI S SUBCUT ANEOUS ACTIVE 05/19/2025 [id number] 5 RAINA UREÑA ISTEL G [address] [place] [address] [facility] ADALIMUMAB- BWWD 40MG/0.8ML INJ,SYRINGE INJECT 40MG/0.8 ML (SYR) UNDER THE SKIN EVERY WEEK FOR PLAQUE PSORIASI S SUBCUT ANEOUS DISCONT INUED 11/13/2024 [id number] 4 RAINA UREÑA ISTEL G [address] [place] [address] [facility] ADALIMUMAB- BWWD 40MG/0.8ML INJ,SYRINGE INJECT 40MG/0.8 ML (SYR) UNDER THE SKIN EVERY WEEK FOR PLAQUE PSORIASI S SUBCUT ANEOUS DISCONT INUED 12/06/2023 [id number] 4 SWATHI RUANO 2023 12 [facility] AMOXICILLIN TRIHYDRATE 875MG/CLAVU LANATE K 125MG TAB TAKE 1 TABLET BY MOUTH TWICE A DAY FOR URINARY TRACT INFECTIO N TAKE WITH FOOD. TAKE UNTIL GONE UNLESS OTHERWIS E DIRECTED . ORAL 10/03/2023 [id number] 4 RAINA UREÑA ISKIMMY G 2023 14 [place] [facility] APPLE CIDER VINEGAR CAP/TAB TAKE 1 CAP/TAB BY MOUTH TWICE A DAY ORAL ACTIVE BATOOL MIRANDA 2024 [facility] ASPIRIN 81MG TAB,EC TAKE ONE TABLET BY MOUTH ONCE A DAY ORAL ACTIVE SWATHI RUANO 2022 [facility] CHOLECALCIF SUSAN 25MCG (1,000UNIT) TAB TAKE ONE TABLET BY MOUTH ONCE A DAY ORAL ACTIVE SWATHI RUANO 2022 [facility] CYANOCOBALA MIN 1000MCG TAB TAKE ONE TABLET BY MOUTH ONCE A DAY FOR VITAMIN B12 SUPPLEME NTATION ORAL ACTIVE 03/13/2025 [id number] 5 MACHELLE GABRIEL 2024 90 [facility] CYANOCOBALA MIN 1000MCG TAB TAKE TWO TABLETS BY MOUTH ONCE A DAY FOR VITAMIN B12 SUPPLEME NTATION ORAL DISCONT INUED (EDIT) 09/14/2024 [id number] 4 RAINA UREÑA ISTEJorge Luis G 2023 200 [place] [facility] CYANOCOBALA MIN 1000MCG TAB TAKE ONE TABLET BY MOUTH ONCE A DAY FOR VITAMIN B12 SUPPLEME NTATION ORAL DISCONT INUED (EDIT) 09/03/2024 [id number] 4 RAINA UREÑA ISTEJorge Luis G 2023 100 [facility] CYANOCOBALA MIN 1000MCG TAB TAKE ONE TABLET BY MOUTH ORAL ACTIVE KELLY PEGUERO 2013 [facility] DABIGATRAN ETEXILATE 150MG CAP,ORAL TAKE ONE CAPSULE BY MOUTH TWICE A DAY FOR ANTICOAG ULATION TO THIN BLOOD. DO NOT OPEN CAPSULE. SWALLOW WHOLE. DO NOT OPEN PKG UNTIL READY FOR DOSE TO MAINTAIN STABILIT Y. ORAL ACTIVE 09/03/2025 [id number] [place] 2024 180 [place] [facility] DABIGATRAN ETEXILATE 150MG CAP,ORAL TAKE ONE CAPSULE BY MOUTH TWICE A DAY TO THIN BLOOD. DO NOT OPEN CAPSULE. SWALLOW WHOLE. DO NOT OPEN PKG UNTIL READY FOR DOSE TO MAINTAIN STABILIT Y. ORAL DISCONT INUED (EDIT) 10/09/2024 [id number] 5 PIA RAMOS 2023 180 [place] [facility] DABIGATRAN ETEXILATE 150MG CAP,ORAL TAKE ONE CAPSULE BY MOUTH TWICE A DAY TO THIN BLOOD. DO NOT OPEN CAPSULE. SWALLOW WHOLE. DO NOT OPEN PKG UNTIL READY FOR DOSE TO MAINTAIN STABILIT Y. ORAL DISCONT INUED 10/16/2023 [id number] 4 [place] 2022 180 [place] [facility] DILTIAZEM (EQV-TIAZAC AB4) 120MG 24HR CAP TAKE ONE CAPSULE BY MOUTH EVERY MORNING BEFORE A MEAL FOR HEART OR TO LOWER BLOOD PRESSURE ORAL ACTIVE 03/13/2025 [id number] 5 RAINA UREÑA ISTEL G [address] [place] [address] [facility] DILTIAZEM (EQV-TIAZAC AB4) 120MG 24HR CAP TAKE ONE CAPSULE BY MOUTH EVERY MORNING BEFORE A MEAL FOR HEART OR TO LOWER BLOOD PRESSURE ORAL DISCONT INUED 02/06/2024 [id number] 4 SWATHI RUANO [address] [place] [address] [facility] FINASTERIDE 5MG TAB TAKE ONE TABLET BY MOUTH ONCE A DAY FOR PROSTATE . SWALLOW WHOLE, DO NOT CRUSH, SPLIT, OR CHEW. ORAL ACTIVE 03/04/2025 [id number] 5 RAINA UREÑA ISTEL G [address] [place] [address] [facility] FINASTERIDE 5MG TAB TAKE ONE TABLET BY MOUTH ONCE A DAY FOR PROSTATE . SWALLOW WHOLE, DO NOT CRUSH, SPLIT, OR CHEW. ORAL DISCONT INUED 02/06/2024 [id number] 4 SWATHI RUANO 2023 90 [facility] FISH OIL 1000MG (500MG DHA/EPA) CAP,ORAL TAKE 1 CAPSULE (500MG OMEGA 3 FA) BY MOUTH EVERY DAY ORAL ACTIVE BHUPENDRA JIMENEZ 2012 [facility] FLUTICASONE PROPIONATE 50MCG/SPRAY SOLN,NASAL, 16GM INSTILL 2 SPRAYS IN NOSTRIL( S) ONCE A DAY FOR RHINITIS (MUST BE USED DIRECTED FOR MINIMUM OF 21 DAYS TO PROVIDE ADEQUATE BENEFITS ) NASAL DISCONT INUED 08/28/2024 [id number] 4 RAINA UREÑA ISTEJorge Luis G 2023 3 [facility] FLUTICASONE PROPIONATE 50MCG/SPRAY SOLN,NASAL, 16GM INSTILL 1 SPRAY IN NOSTRIL( S) ONCE A DAY FOR RHINITIS (MUST BE USED DIRECTED FOR MINIMUM OF 21 DAYS TO PROVIDE ADEQUATE BENEFITS ) NASAL 09/12/2024 [id number] 5 RAINA UREÑA ISTEJorge Luis G 2023 3 [facility] FOLIC ACID 1MG TAB TAKE ONE TABLET BY MOUTH ONCE A DAY FOR FOLIC ACID SUPPLEME NTATION TAKE WITH B12 AND FOOD ORAL ACTIVE 09/05/2025 [id number] 5 JACKIE AVENDANO III [address] [place] [address] [facility] FOLIC ACID 1MG TAB TAKE ONE TABLET BY MOUTH ONCE A DAY FOR FOLIC ACID SUPPLEME NTATION ORAL DISCONT INUED 09/14/2024 [id number] 5 RAINA UREÑA ISTEJorge Luis G 2023 100 [facility] HYDROCHLORO THIAZIDE 25MG TAB TAKE ONE TABLET BY MOUTH ONCE A DAY FOR BLOOD PRESSURE ORAL DISCONT INUED BY NATALIA Shah 02/06/2024 [id number] 4 SWATHI RUANO 2023 90 [facility] HYDROCHLORO THIAZIDE 25MG TAB TAKE ONE TABLET BY MOUTH ONCE A DAY FOR HIGH BLOOD PRESSURE ORAL 09/11/2024 [id number] 5 RAINA UREÑA ISTEL G 2023 90 [facility] HYDROCORTIS ONE 2.5% CREAM,TOP APPLY SPARINGL Y TO AFFECTED AREA(S) FOUR TIMES A DAY NEEDED FOR PLAQUE PSORIASI S FOR EXTERNAL USE ONLY. APPLY SPARINGL Y. TOPICA L ACTIVE 11/14/2024 [id number] 5 RAINA UREÑA ISTEL G 2023 60 [facility] LOSARTAN POTASSIUM 100MG TAB TAKE ONE TABLET BY MOUTH ONCE A DAY FOR HIGH BLOOD PRESSURE TO LOWER BLOOD PRESSURE ORAL ACTIVE 10/01/2024 [id number] 5 RAINA UREÑA ISTEL G 2023 90 [facility] [place] POTASSIUM 100MG TAB TAKE ONE-HALF TABLET BY MOUTH ONCE A DAY FOR HIGH BLOOD PRESSURE TO LOWER BLOOD PRESSURE ORAL DISCONT INUED (EDIT) 08/28/2024 [id number] 4 UREÑARAINA ISTEL G 2023 45 [facility] MECLIZINE HCL 25MG TAB,CHEWABL E CHEW AND SWALLOW ONE TABLET BY MOUTH THREE TIMES A DAY NEEDED FOR VERTIGO CHEWABLE TABLETS MAY BE CHEWED OR SWALLOWE D WHOLE. MAY CAUSE DROWSINE SS. ORAL ACTIVE 03/13/2025 [id number] 5 MACHELLE GABRIEL 2024 270 [facility] MECLIZINE HCL 25MG TAB,CHEWABL E CHEW AND SWALLOW ONE TABLET BY MOUTH THREE TIMES A DAY NEEDED FOR VERTIGO CHEWABLE TABLETS MAY BE CHEWED OR SWALLOWE D WHOLE. MAY CAUSE DROWSINE SS. ORAL DISCONT INUED (EDIT) 10/15/2024 [id number] 4 ERIC SIMPSON 2023 270 [facility] MECLIZINE HCL 25MG TAB,CHEWABL E CHEW AND SWALLOW ONE TABLET BY MOUTH THREE TIMES A DAY NEEDED FOR VERTIGO CHEWABLE TABLETS MAY BE CHEWED OR SWALLOWE D WHOLE. MAY CAUSE DROWSINE SS. ORAL DISCONT INUED 08/28/2024 [id number] 4 RAINA UREÑA ISTEL G 2023 90 [facility] MECLIZINE HCL 25MG TAB,CHEWABL E CHEW AND SWALLOW ONE TABLET BY MOUTH THREE TIMES A DAY NEEDED FOR VERTIGO CHEWABLE TABLETS MAY BE CHEWED OR SWALLOWE D WHOLE. MAY CAUSE DROWSINE SS. ORAL DISCONT INUED (EDIT) 10/15/2024 [id number] 4 MACHELLE GABRIEL Rafaela 2023 90 [facility] MECLIZINE HCL 25MG TAB,CHEWABL E CHEW AND SWALLOW ONE TABLET BY MOUTH THREE TIMES A DAY NEEDED FOR VERTIGO CHEWABLE TABLETS MAY BE CHEWED OR SWALLOWE D WHOLE. MAY CAUSE DROWSINE SS. ORAL DISCONT INUED (EDIT) 09/14/2023 [id number] HEMANTH ROGERS R 2023 90 [facility] MEMANTINE HCL 5MG TAB TAKE ONE TABLET BY MOUTH EVERY MORNING AND TAKE TWO TABLETS EVERY EVENING FOR MEMORY ORAL ACTIVE 08/25/2025 [id number] 5 JACKIE AVENDANO E III 2024 270 [facility] MEMANTINE HCL 5MG TAB TAKE ONE TABLET BY MOUTH TWICE A DAY FOR MEMORY ORAL DISCONT INUED 06/24/2025 [id number] 5 MACHELLE GABRIEL 2024 180 [facility] MIRABEGRON 25MG TAB,SA TAKE ONE TABLET BY MOUTH ONCE A DAY FOR OVERACTI VE BLADDER SWALLOW WHOLE; DO NOT CRUSH, SPLIT, OR CHEW. ORAL ACTIVE 11/29/2024 [id number] 5 BATOOL MIRANDA [address] [place] [address] [facility] OXYBUTYNIN CL 5MG TAB TAKE ONE TABLET BY MOUTH TWICE A DAY ORAL DISCONT INUED BY PROVIDE R 03/13/2025 [id number] 5 RAINA UREÑA 2024 180 [facility] OXYBUTYNIN CL 5MG TAB TAKE ONE TABLET BY MOUTH TWICE A DAY ORAL DISCONT INUED 02/06/2024 [id number] 4 SWATHI RUANO 2023 180 [facility] POLYETHYLEN E GLYCOL 3350 PWDR,ORAL MIX AND DRINK 1 CAPFUL BY MOUTH ONCE A DAY FOR CONSTIPA TION (MEASURE WITH CAP AND MIX IN 8 OZ OF WATER) ORAL 04/10/2024 [id number] 4 SWATHI RUANO 2023 238 [facility] POTASSIUM CHLORIDE 20MEQ TAB,SA (DISPERSIBL E) TAKE ONE TABLET BY MOUTH ONCE A DAY FOR POTASSIU M SUPPLEME NTATION TAKE WITH FOOD ORAL ACTIVE 03/13/2025 [id number] 5 RAINA UREÑA ISTEL G 2024 90 [facility] POTASSIUM CHLORIDE 20MEQ TAB,SA (DISPERSIBL E) TAKE ONE AND ONE-HALF TABLETS BY MOUTH ONCE A DAY FOR POTASSIU M SUPPLEME NTATION FOR POTASSIU M SUPPLEME NTATION TAKE WITH FOOD ORAL DISCONT INUED (EDIT) 04/10/2024 [id number] 5 SWATHI RUANO 2023 135 [facility] PRAVASTATIN NA 20MG TAB TAKE ONE-HALF TABLET BY MOUTH EVERY EVENING TO LOWER CHOLESTE ROL ORAL ACTIVE 03/04/2025 [id number] 5 RAINA UREÑA ISTEL G 2024 45 [facility] PRAVASTATIN NA 20MG TAB TAKE ONE-HALF TABLET BY MOUTH EVERY EVENING TO LOWER CHOLESTE ROL ORAL DISCONT INUED 02/06/2024 [id number] 4 [facility] 2023 [facility] T[facility]UL[facility] 0.4MG CAP TAKE TWO CAPSULES BY MOUTH AT BEDTIME APPROXIM ATELY 30 MINUTES AFTER THE SAME MEAL EACH DAY (FOR PROSTATE ) ORAL ACTIVE 06/03/2025 [id number] 5 RAINA UREÑA ISTEL G 2024 180 [facility] TAMSULOSIN HCL 0.4MG CAP TAKE TWO CAPSULES BY MOUTH AT BEDTIME APPROXIM ATELY 30 MINUTES AFTER THE SAME MEAL EACH DAY (FOR PROSTATE ) ORAL DISCONT INUED 05/20/2024 [id number] 5 SWATHI RUANO 2023 180 [facility] Allergies, Adverse Reactions, Alerts Combined list of allergies from Department of [facility] and [facility] Affairs facilities. It does not include entries that were removed or entered in error. Substance Category Reaction Severity Reaction type Status Date Reported Comments Source ALBUTEROL Propensity to adverse reactions to drug (finding) Altered mental status, Bronchospas m active 5 [facility] ALBUTEROL Propensity to adverse reactions to drug (finding) active 8 [facility] ALBUTEROL/I PRATROPIUM Propensity to adverse reactions to drug (finding) Dizziness active 5 [facility] ALBUTEROL/I PRATROPIUM Propensity to adverse reactions to drug (finding) active 8 [facility] LISINOPRIL Propensity to adverse reactions to drug (finding) Cough active 1 [facility] LISINOPRIL Propensity to adverse reactions to drug (finding) active 8 [facility] NIFEDIPINE Propensity to adverse reactions to drug (finding) Nightmares active 2 [facility] NIFEDIPINE Propensity to adverse reactions to drug (finding) active 8 [facility] PREDNISONE Propensity to adverse reactions to drug (finding) Psychotic disorder active 5 [facility] PREDNISONE Propensity to adverse reactions to drug (finding) active 8 [facility] Immunizations Combined list of available immunizations from the Department of Defense and [facility] Affairs facilities. Immunization Series Date Given Administered By Site Reaction Lot Number CVX Code Drug Spindle Sander Status Comments Source INFLUENZA, SPLIT VIRUS, TRIVALENT, PF 2023 ELISSA RACHEL RIGHT DELTO ID [id number] 140 complet ed [facility] ZOSTER RECOMBINANT 2022 ADILENE MACIEL LEFT DELTO ID [id number] 187 complet ed [facility] INFLUENZA, HIGH-DOSE, QUADRIVALENT 2022 MARLEE POLLARD LEFT DELTO ID [id number] 197 complet ed [facility] INFLUENZA, INJECTABLE, QUADRIVALENT, PRESERVATIVE FREE 2021 150 complet ed [facility] INFLUENZA, INJECTABLE, QUADRIVALENT, PRESERVATIVE FREE 2021 150 complet ed [facility] COVID-19 (MODERNA), MRNA, LNP-S, PF, 100 MCG OR 50 MCG DOSE 3 2020 207 complet ed MOD; [id number]; 2 [facility] INFLUENZA, INJECTABLE, QUADRIVALENT, PRESERVATIVE FREE 2020 150 complet ed [facility] COVID-19 (MODERNA), MRNA, LNP-S, PF, 100 MCG/0.5ML DOSE OR 50 MCG/0.25ML DOSE 2 2020 207 complet ed HISTORICA L INFORMATI ON - FROM OTHER REGISTRY, [facility] COVID-19 (MODERNA), MRNA, LNP-S, PF, 100 MCG OR 50 MCG DOSE 2 2020 207 complet ed [facility] COVID-19 (MODERNA), MRNA, LNP-S, PF, 100 MCG OR 50 MCG DOSE 1 2020 207 complet ed [facility] INFLUENZA, INJECTABLE, QUADRIVALENT, PRESERVATIVE FREE 2018 150 complet ed [facility] INFLUENZA, INJECTABLE, QUADRIVALENT, PRESERVATIVE FREE 2018 150 complet ed [facility] PNEUMOCOCCAL POLYSACCHARID E [id number] 2017 33 complet ed [facility] INFLUENZA, SEASONAL, INJECTABLE, PRESERVATIVE FREE 2016 140 complet ed [facility] INFLUENZA, SEASONAL, INJECTABLE 2015 141 complet ed [facility] INFLUENZA, UNSPECIFIED FORMULATION 2015 88 complet [facility] VARICELLA ZOSTER (HISTORICAL) 2015 121 complet [facility] INFLUENZA, SEASONAL, INJECTABLE, PRESERVATIVE FREE 2015 140 complet [facility] TETANUS/DIPTH ERIA/PERTUSSI S (TDAP) (HISTORICAL) 2013 115 complet [facility] INFLUENZA, UNSPECIFIED FORMULATION 2013 88 complet [facility] PNEUMOCOCCAL CONJUGATE PCV 13 2013 133 complet ed [facility] INFLUENZA, UNSPECIFIED FORMULATION 2012 88 complet ed [facility] PNEUMOCOCCAL, UNSPECIFIED FORMULATION 2012 109 complet ed no reported reaction [facility] INFLUENZA, UNSPECIFIED FORMULATION 2012 88 complet ed no reported reaction [facility] TD(ADULT) UNSPECIFIED FORMULATION 2011 139 complet ed [facility] INFLUENZA, UNSPECIFIED FORMULATION 2011 NONE 88 complet ed sanofi pasteur/u [id number] ne30,2011 [facility] TD(ADULT) UNSPECIFIED FORMULATION 2010 139 complet ed [employer] Pasteur [id number], 01/10/12 [facility] Results Combined list of recent chemistry, hematology and other laboratory results from Department of Defense and Veterans Affairs, ranging from 15 months to all on record, depending upon the facility. Order Name Results Value Reference Range Date Interpretation Specimen Comments Source RHEUMATOID FACTOR (PB) RHEUMATOID FACTOR [UNITS/VOLUME ] IN SERUM OR PLASMA 21.0 [IU]/m L 0 - 30 06/15 Specimen Type: SERUM No comment entered. Ordering Provider: MACHELLE GABRIEL Report Released Date/Time : Mar 12, 2024 12:01 PM Reporting Lab: [place] [facility] [address] [place] [address] Performin g Lab: [place] [facility] [address] [place] [address] [facility] IRON IRON [MASS/VOLUME] IN SERUM OR PLASMA 101 ug/dL 65 - 175 06/15 Specimen Type: PLASMA No comment entered. Ordering Provider: MACHELLE GABRIEL Report Released Date/Time : Mar 12, 2024 12:01 PM Reporting Lab: [place] [facility] [address] [place] [address] Performin g Lab: [place] [facility] [address] [place] [address] [facility] DIRECT LDL (MA-PB) CHOLESTEROL IN LDL [MASS/VOLUME] IN SERUM OR PLASMA BY DIRECT ASSAY 96.9 mg/dL 0 - 99.9 06/15 Specimen Type: PLASMA No comment entered. Ordering Provider: MACHELLE GABRIEL Report Released Date/Time : Mar 12, 2024 12:01 PM Reporting Lab: [place] [facility] [address] [place] [address] Performin g Lab: [place] [facility] [address] [place] [address] [facility] CHOLESTEROL PANEL (PB) CHOLESTEROL [MASS/VOLUME] IN SERUM OR PLASMA 150 mg/dL 0 - 200 06/15 Specimen Type: PLASMA No comment entered. Ordering Provider: MACHELLE GABRIEL Report Released Date/Time : Mar 12, 2024 12:01 PM Reporting Lab: [place] [facility] [address] [place] [id number] Performin g Lab: [place] [facility] [address] [place] [address] [facility] CHOLESTEROL PANEL (PB) TRIGLYCERIDE [MASS/VOLUME] IN SERUM OR PLASMA 120 mg/dL 0 - 150 06/15 Specimen Type: PLASMA No comment entered. Ordering Provider: MACHELLE GABRIEL Report Released Date/Time : Mar 12, 2024 12:01 PM Reporting Lab: [place] [facility] [address] [place] [address] 8 Performin g Lab: [place] [facility] [address] [place] [address] 8 [facility] CHOLESTEROL PANEL (PB) CHOLESTEROL IN LDL [MASS/VOLUME] IN SERUM OR PLASMA BY CALCULATION 90.2 mg/dL 06/15 Specimen Type: PLASMA No comment entered. Ordering Provider: MACHELLE GABRIEL Report Released Date/Time : Mar 12, 2024 12:01 PM Reporting Lab: [place] [facility] [address] [place] [address] 8 Performin g Lab: [place] [facility] [address] [place] [address] 8 [facility] CHOLESTEROL PANEL (PB) CHOLESTEROL IN HDL [MASS/VOLUME] IN SERUM OR PLASMA 35.8 mg/dL 40 06/15 L Specimen Type: PLASMA No comment entered. Ordering Provider: MACHELLE GABRIEL Report Released Date/Time : Mar 12, 2024 12:01 PM Reporting Lab: [place] [facility] [address] [place] [address] 8 Performin g Lab: [place] [facility] [address] [place] [address] 8 [facility] CHOLESTEROL PANEL (PB) CHOLESTEROL IN HDL/CHOLESTER OL.TOTAL [MASS RATIO] IN SERUM OR PLASMA 23.9 25 06/15 Specimen Type: PLASMA No comment entered. Ordering Provider: MACHELLE GABRIEL Report Released Date/Time : Mar 12, 2024 12:01 PM Reporting Lab: [place] [facility] [address] [place] [address] 8 Performin g Lab: [place] [facility] [address] [place] [address] 8 [facility] VITAMIN D, 25-HYDROXY 25-HYDROXYVIT KRAUSE D3 [MASS/VOLUME] IN SERUM OR PLASMA 63.7 ng/mL 30 - 96 06/15 Specimen Type: SERUM No comment entered. Ordering Provider: MACHELLE GABRIEL Report Released Date/Time : Mar 12, 2024 12:01 PM Reporting Lab: [place] [facility] [address] [place] [address] 8 Performin g Lab: [place] [facility] [address] [place] [address] 8 [facility] HGA1C HEMOGLOBIN A1C/HEMOGLOBI N.TOTAL IN BLOOD 6.3 4.0 - 6.0 06/15 H Specimen Type: BLOOD No comment entered. Ordering Provider: MACHELLE GABRIEL Report Released Date/Time : Mar 12, 2024 12:01 PM Reporting Lab: [place] [facility] [address] [place] [address] 8 Performin g Lab: [place] [facility] [address] [place] [address] 8 [facility] URINE ALBUMIN PROFILE-ih (PB) ALBUMIN [MASS/VOLUME] IN URINE 19.15 mg/L 0 - 30 06/15 Specimen Type: URINE No comment entered. Ordering Provider: MACHELLE GABRIEL Report Released Date/Time : Mar 12, 2024 12:01 PM Reporting Lab: [place] [facility] [address] [place] [address] 8 Performin g Lab: [place] [facility] [address] [place] [address] 8 [facility] URINE ALBUMIN PROFILE-ih (PB) ALBUMIN/CREAT ININE [MASS RATIO] IN URINE 18.21 ug/mg 06/15 Specimen Type: URINE No comment entered. Ordering Provider: MACHELLE GABRIEL Report Released Date/Time : Mar 12, 2024 12:01 PM Reporting Lab: [place] [facility] [address] [place] [address] 8 Performin g Lab: [place] [facility] [address] [place] [address] 8 [facility] URINE ALBUMIN PROFILE-ih (PB) CREATININE [MASS/VOLUME] IN URINE 105.16 mg/dL 06/15 Specimen Type: URINE No comment entered. Ordering Provider: MACHELLE GABRIEL Report Released Date/Time : Mar 12, 2024 12:01 PM Reporting Lab: [place] [facility] [address] [place] [address] 8 Performin g Lab: [place] [facility] [address] [place] [address] 8 [facility] FOLATE (PB) FOLATE [MASS/VOLUME] IN SERUM OR PLASMA 18.2 ng/mL 7 - 20 06/15 Specimen Type: SERUM No comment entered. Ordering Provider: MACHELLE GABRIEL Report Released Date/Time : Mar 12, 2024 12:01 PM Reporting Lab: [place] [facility] [address] [place] [address] 8 Performin g Lab: [place] [facility] [address] [place] [address] 8 [facility] B12 COBALAMIN (VITAMIN B12) [MASS/VOLUME] IN SERUM OR PLASMA 940 pg/mL 213 - 816 06/15 H Specimen Type: SERUM No comment entered. Ordering Provider: MACHELLE GABRIEL Report Released Date/Time : Mar 12, 2024 12:01 PM Reporting Lab: [place] [facility] [address] [place] [address] 8 Performin g Lab: [place] [facility] [address] [place] [address] 8 [facility] CBC LEUKOCYTES [#/VOLUME] IN BLOOD BY AUTOMATED COUNT 5.8 10*3/u L 3.6 - 11.2 06/15 Specimen Type: BLOOD No comment entered. Ordering Provider: MACHELLE GABRIEL Report Released Date/Time : Mar 12, 2024 12:01 PM Reporting Lab: [place] [facility] [address] [place] [address] 8 Performin g Lab: [place] [facility] [address] [place] [address] 8 [facility] CBC ERYTHROCYTES [#/VOLUME] IN BLOOD BY AUTOMATED COUNT 5.21 10*6/u L 4.10 - 5.70 06/15 Specimen Type: BLOOD No comment entered. Ordering Provider: MACHELLE GABRIEL Report Released Date/Time : Mar 12, 2024 12:01 PM Reporting Lab: [place] [facility] [address] [place] [address] 8 Performin g Lab: [place] [facility] [address] [place] [address] 8 [facility] CBC HEMOGLOBIN [MASS/VOLUME] IN BLOOD 15.0 g/dL 13.1 - 16.8 06/15 Specimen Type: BLOOD No comment entered. Ordering Provider: MACHELLE GABRIEL Report Released Date/Time : Mar 12, 2024 12:01 PM Reporting Lab: [place] [facility] [address] [place] [address] 8 Performin g Lab: [place] [facility] [address] [place] [address] 8 [facility] CBC HEMATOCRIT [VOLUME FRACTION] OF BLOOD 46.5 38.2 - 48.4 06/15 Specimen Type: BLOOD No comment entered. Ordering Provider: MACHELLE GABRIEL Report Released Date/Time : Mar 12, 2024 12:01 PM Reporting Lab: [place] [facility] [address] [place] [address] 8 Performin g Lab: [place] [facility] [address] [place] [address] 8 [facility] CBC MCV [ENTITIC VOLUME] BY AUTOMATED COUNT 89.3 fL 80.0 - 100.0 06/15 Specimen Type: BLOOD No comment entered. Ordering Provider: MACHELLE GABRIEL Report Released Date/Time : Mar 12, 2024 12:01 PM Reporting Lab: [place] [facility] [address] [place] [address] 8 Performin g Lab: [place] [facility] [address] [place] [address] 8 [facility] CBC MCH [ENTITIC MASS] BY AUTOMATED COUNT 28.8 pg 27.0 - 34.0 06/15 Specimen Type: BLOOD No comment entered. Ordering Provider: MACHELLE GABRIEL Report Released Date/Time : Mar 12, 2024 12:01 PM Reporting Lab: [place] [facility] [address] [place] [address] 8 Performin g Lab: [place] [facility] [address] [place] [address] 8 [facility] CBC MCHC [MASS/VOLUME] BY AUTOMATED COUNT 32.3 g/dL 33.0 - 36.0 06/15 L Specimen Type: BLOOD No comment entered. Ordering Provider: MACHELLE GABRIEL Report Released Date/Time : Mar 12, 2024 12:01 PM Reporting Lab: [place] [facility] [address] [place] [address] 8 Performin g Lab: [place] [facility] [address] [place] [address] 8 [facility] CBC PLATELETS [#/VOLUME] IN BLOOD BY AUTOMATED COUNT 248 10*3/u L 150 - 400 06/15 Specimen Type: BLOOD No comment entered. Ordering Provider: MACHELLE GABRIEL Report Released Date/Time : Mar 12, 2024 12:01 PM Reporting Lab: [place] [facility] [address] [place] [address] 8 Performin g Lab: [place] [facility] [address] [place] [address] 8 [facility] CBC PLATELET MEAN VOLUME [ENTITIC VOLUME] IN BLOOD BY AUTOMATED COUNT 10.2 fL 7.5 - 11.2 06/15 Specimen Type: BLOOD No comment entered. Ordering Provider: MACHELLE GABRIEL Report Released Date/Time : Mar 12, 2024 12:01 PM Reporting Lab: [place] [facility] [address] [place] [address] 8 Performin g Lab: [place] [facility] [address] [place] [address] 8 [facility] CBC ERYTHROCYTE DISTRIBUTION WIDTH [RATIO] BY AUTOMATED COUNT 13.0 11.8 - 15.1 06/15 Specimen Type: BLOOD No comment entered. Ordering Provider: MACHELLE GABRIEL Report Released Date/Time : Mar 12, 2024 12:01 PM Reporting Lab: [place] [facility] [address] [place] [address] 8 Performin g Lab: [place] [facility] [address] [place] [address] 8 [facility] CBC LYMPHOCYTES/1 00 LEUKOCYTES IN BLOOD BY AUTOMATED COUNT 26.8 06/15 Specimen Type: BLOOD No comment entered. Ordering Provider: MACHELLE GABRIEL Report Released Date/Time : Mar 12, 2024 12:01 PM Reporting Lab: [place] [facility] [address] [place] [address] 8 Performin g Lab: [place] [facility] [address] [place] [address] 8 [facility] CBC MONOCYTES/100 LEUKOCYTES IN BLOOD BY AUTOMATED COUNT 8.8 06/15 Specimen Type: BLOOD No comment entered. Ordering Provider: MACHELLE GABRIEL Report Released Date/Time : Mar 12, 2024 12:01 PM Reporting Lab: [place] [facility] [address] [place] [address] 8 Performin g Lab: [place] [facility] [address] [place] [address] 8 [facility] CBC NEUTROPHILS/1 00 LEUKOCYTES IN BLOOD BY AUTOMATED COUNT 59.5 06/15 Specimen Type: BLOOD No comment entered. Ordering Provider: MACHELLE GABRIEL Report Released Date/Time : Mar 12, 2024 12:01 PM Reporting Lab: [place] [facility] [address] [place] [address] 8 Performin g Lab: [place] [facility] [address] [place] [address] 8 [facility] CBC EOSINOPHILS/1 00 LEUKOCYTES IN BLOOD BY AUTOMATED COUNT 4.5 06/15 Specimen Type: BLOOD No comment entered. Ordering Provider: MACHELLE GABRIEL Report Released Date/Time : Mar 12, 2024 12:01 PM Reporting Lab: [place] [facility] [address] [place] [address] 8 Performin g Lab: [place] [facility] [address] [place] [address] 8 [facility] CBC BASOPHILS/100 LEUKOCYTES IN BLOOD BY AUTOMATED COUNT 0.2 06/15 Specimen Type: BLOOD No comment entered. Ordering Provider: MACHELLE GABRIEL Report Released Date/Time : Mar 12, 2024 12:01 PM Reporting Lab: [place] [facility] [address] [place] [address] 8 Performin g Lab: [place] [facility] [address] [place] [address] 8 [facility] CBC LYMPHOCYTES [#/VOLUME] IN BLOOD BY AUTOMATED COUNT 1.55 10*3/u L 0.77 - 4.50 06/15 Specimen Type: BLOOD No comment entered. Ordering Provider: MACHELLE GABRIEL Report Released Date/Time : Mar 12, 2024 12:01 PM Reporting Lab: [place] [facility] [address] [place] [address] 8 Performin g Lab: [place] [facility] [address] [place] [address] 8 [facility] CBC MONOCYTES [#/VOLUME] IN BLOOD BY AUTOMATED COUNT 0.51 10*3/u L 0.19 - 0.8 06/15 Specimen Type: BLOOD No comment entered. Ordering Provider: MACHELLE GABRIEL Report Released Date/Time : Mar 12, 2024 12:01 PM Reporting Lab: [place] [facility] [address] [place] [address] 8 Performin g Lab: [place] [facility] [address] [place] [address] 8 [facility] CBC NEUTROPHILS [#/VOLUME] IN BLOOD BY AUTOMATED COUNT 3.45 10*3/u L 2.10 - 8.00 06/15 Specimen Type: BLOOD No comment entered. Ordering Provider: MACHELLE GABRIEL Report Released Date/Time : Mar 12, 2024 12:01 PM Reporting Lab: [place] [facility] [address] [place] [address] 8 Performin g Lab: [place] [facility] [address] [place] [address] 8 [facility] CBC EOSINOPHILS [#/VOLUME] IN BLOOD BY AUTOMATED COUNT 0.26 10*3/u L 0.00 - 0.60 06/15 Specimen Type: BLOOD No comment entered. Ordering Provider: MACHELLE GABRIEL Report Released Date/Time : Mar 12, 2024 12:01 PM Reporting Lab: [place] [facility] [address] [place] [address] 8 Performin g Lab: [place] [facility] [address] [place] [address] 8 [facility] CBC BASOPHILS [#/VOLUME] IN BLOOD BY AUTOMATED COUNT 0.01 10*3/u L 0.00 - 0.20 06/15 Specimen Type: BLOOD No comment entered. Ordering Provider: MACHELLE GABRIEL Report Released Date/Time : Mar 12, 2024 12:01 PM Reporting Lab: [place] [facility] [address] [place] [address] 8 Performin g Lab: [place] [facility] [address] [place] [address] 8 [facility] CBC IMMATURE GRANULOCYTES/ 100 LEUKOCYTES IN BLOOD BY AUTOMATED COUNT 0.2 06/15 Specimen Type: BLOOD No comment entered. Ordering Provider: MACHELLE GABRIEL Report Released Date/Time : Mar 12, 2024 12:01 PM Reporting Lab: [place] [facility] [address] [place] [address] 8 Performin g Lab: [place] [facility] [address] [place] [address] 8 [place] [facility] CBC IMMATURE GRANULOCYTES [#/VOLUME] IN BLOOD BY AUTOMATED COUNT 0.01 10*3/u L 0.00 - 0.05 06/15 Specimen Type: BLOOD No comment entered. Ordering Provider: MACHELLE GABRIEL Report Released Date/Time : Mar 12, 2024 12:01 PM Reporting Lab: [place] [facility] [address] [place] [address] 8 Performin g Lab: [place] [facility] [address] [place] [address] 8 [facility] [place] [facility] Vital Signs Combined list of inpatient and outpatient Vital Signs from Department of Defense and Veterans Affairs, ranging from 12 months to all on record, depending upon the facility. Vital Sign Value Date Comments Source SYSTOLIC BLOOD PRESSURE 127 03/12/2024 09:52:00 [place] [facility] DIASTOLIC BLOOD PRESSURE 66 03/12/2024 09:52:00 [place] [facility] PULSE OXIMETRY 98 03/12/2024 09:52:00 [facility] [place] [facility] WEIGHT 195.8 03/12/2024 09:52:00 [place] [facility] BMI 28 kg/m2 03/12/2024 09:52:00 [place] [facility] PAIN 0 03/12/2024 09:52:00 [place] [facility] TEMPERATURE 97.9 03/12/2024 09:52:00 [place] [facility] PULSE 83 03/12/2024 09:52:00 [place] [facility] RESPIRATION 20 03/12/2024 09:52:00 [place] [facility] SYSTOLIC BLOOD PRESSURE 124 11/14/2023 11:27:11 [place] [facility] DIASTOLIC BLOOD PRESSURE 62 11/14/2023 11:27:11 [place] [facility] PULSE OXIMETRY 97 11/14/2023 11:27:11 [facility] [place] [facility] WEIGHT 196.1 11/14/2023 11:27:11 [place] [facility] BMI 28 kg/m2 11/14/2023 11:27:11 [place] [facility] PAIN 2 11/14/2023 11:27:11 [place] [facility] TEMPERATURE 98 11/14/2023 11:27:11 [facility] PULSE 82 11/14/2023 11:27:11 [facility] RESPIRATION 22 11/14/2023 11:27:11 [facility] SYSTOLIC BLOOD PRESSURE 150 10/01/2023 08:34:00 [facility] DIASTOLIC BLOOD PRESSURE 84 10/01/2023 08:34:00 [facility] Encounters Combined list of: 1) Encounters from Department of [facility] Affairs facilities going backup to the last 18 months, not all [place] inpatient encounters are included; 2) Encounters from the Department of [facility] facilities going backup to 280 months. Location Location Details Encounter Type Encounter Number Reason For Visit Attending Provider ADM Date DC Date Status Disposition Source [facility] Outpatient Encounter [id number] 03/25 [facility] Outpatient Encounter [id number] 03/27 [facility] HC PRO PHONE CALL 11-20 MIN [id number] Diagnos is: ICD-10- CM Z51.81 Encount er for therape utic drug level monitor FRANCOISE Wolfe 04/10 [facility] Outpatient Encounter [id number] Pablo RUANO 04/10 [facility] OFFICE O/P EST MOD 30 MIN [id number] Diagnos is: ICD-10- CM I10 Essenti al (primar y) hyperte nsion Pablo RUANO 04/17 [facility] Outpatient Encounter [id number] [facility] Outpatient Encounter [id number] [place] [facility] Outpatient Encounter [id number] GABRIELA MACIEL A 04/25 [facility] Outpatient Encounter [id number] 04/25 [facility] Outpatient Encounter [id number] 04/25 [facility] [place] [facility] Outpatient Encounter [id number] Frans[place] VALLE 05/19 [place] [facility] [place] [facility] Outpatient Encounter [id number] 05/26 [place] [facility] Outpatient Encounter [id number] 07/14 [facility] Outpatient Encounter [id number] 07/17 [facility] OFF/OP EST JUNE X REQ PHY/QHP [id number] Diagnos is: ICD-10- CM R13.10 Dysphag ia, unspeci GABRIELA Granados 08/14 [facility] OFFICE O/P EST MOD 30 MIN [id number] Diagnos is: ICD-10- CM I95.9 Hypoten kitty, unspeci MYNOR Roman 08/27 [facility] Outpatient Encounter [id number] 09/03 [facility] OFF/OP EST MAY X REQ PHY/QHP [id number] Diagnos is: ICD-10- CM I10 Essenti al (primar y) hyperte nsion PHYLLIS RACHEL R 09/10 [facility] Outpatient Encounter [id number] 09/10 [facility] Outpatient Encounter [id number] 09/23 [facility] Outpatient Encounter [id number] 09/30 [facility] Outpatient Encounter [id number] Diagnos is: ICD-10- CM I10 Essenti al (primar y) hyperte nsRAINA MauriceAdwoa STEJorge Luis G 09/30 [facility] Outpatient Encounter [id number] 10/01 [facility] [place] [facility] MTMS BY PHARM EST 15 MIN [id number] Diagnos is: ICD-10- CM Z51.81 Encount er for therape utic drug level monitor PIA Ojeda 10/08 [place] [facility] Outpatient Encounter [id number] 10/08 [facility] [place] [facility] Outpatient Encounter [id number] 10/09 [place] [facility] MTMS BY PHARM ADDL 15 MIN [id number] Diagnos is: ICD-10- CM E78.5 Hyperli pidemia , unspeci fiFransisco De La Cruz 10/14 [facility] Outpatient Encounter [id number] 10/16 [facility] Outpatient Encounter [id number] 11/03 [facility] [place] [facility] Outpatient Encounter [id number] 11/11 [facility] En[facility] [id number] 11/11 [facility] OFFICE O/P EST HI 40 MIN [id number] Diagnos is: ICD-10- CM I10 Essenti al (primar y) hyperte nsion MYNOR UREÑA STEJorge Luis G 11/13 [facility] Outpatient Encounter [id number] 11/21 [facility] Outpatient Encounter [id number] 11/28 [facility] Outpatient Encounter [id number] 12/03 [facility] MTMS BY PHARM ADDL 15 MIN [id number] Diagnos is: ICD-10- CM E11.9 Type 2 diabete s mellitu s without complic ations Fransisco GABRIEL 12/11 [facility] Outpatient Encounter [id number] 12/19 [facility] Outpatient Encounter [id number] 01/05 [facility] [place] [facility] Outpatient Encounter [id number] 03/02 [place] [facility] Outpatient Encounter [id number] MICHAEL BAPTISTE IGH E 03/12 [facility] OFFICE O/P EST MOD 30 MIN [id number] Diagnos is: ICD-10- CM Z00.00 Encntr for general adult medical exam w/o abnorma l finding s MYNOR UREÑA STEL G 03/12 [facility] MTMS BY PHARM ADDL 15 MIN [id number] Diagnos is: ICD-10- CM E78.5 Hyperli pidemia , unspeci fied [place] GABRIEL CARO W 03/12 [facility] Outpatient Encounter [id number] 03/17 [facility] Outpatient Encounter [id number] 03/26 [facility] Outpatient Encounter [id number] 05/02 [facility] [place] [facility] Outpatient Encounter [id number] [id number] 05/18 [place] [facility] [place] [facility] Outpatient Encounter [id number] [id number] 06/01 [place] [facility] MTMS BY PHARM ADDL 15 MIN [id number] Diagnos is: ICD-10- CM E78.5 Hyperli pidemia , unspeci fied [place] GABRIEL W 06/23 [facility] Outpatient Encounter [id number] 06/25 [facility] Outpatient Encounter [id number] MASSIMO ADAMES A 06/26 [facility] Outpatient Encounter [id number] 07/03 [facility] Outpatient Encounter [id number] [id number] 07/28 [facility] Outpatient Encounter [id number] 07/30 [facility] Outpatient Encounter [id number] 08/20 [facility] [place] [facility] Outpatient Encounter [id number] 08/20 [facility] ADDL 15 MIN [id number] Diagnos is: ICD-10- CM R32 Unspeci fied urinary inconti KAILEE Orourke 08/27 [facility] MTMS BY PHARM INTERVIEWING CLERK 15 MIN [id number] Diagnos is: ICD-10- CM 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 АННА CRUZ V 08/31 [facility] Outpatient Encounter [id number] 08/31 [facility] [place] MTMS BY PHARM INTERVIEWING CLERK 15 MIN [id number] Diagnos is: ICD-10- CM L40.9 Psorias is, unspeci sergei CRUZ,АННА V 09/07 [facility] Social History Combined list of available smoking, tobacco, and other social history from [facility] of Defense and Veterans Affairs facilities. Social History Type Response Date Comment Sourc e Tobacco smoking status NHIS VA-TOBACCO FORMER USER 04/17/2023 [facility] History of tobacco use VA-TOBACCO QUIT 1 5 YRS OR MORE 04/17/2023 [facility] History of tobacco use VA-TOBACCO FORMER USER 04/17/2022 [facility] History of tobacco use VA-TOBACCO FORMER USER 04/13/2021 [facility] History of tobacco use VA-TOBACCO FORMER USER 03/15/2020 [facility] History of tobacco use VA-TOBACCO FORMER USER 03/12/2019 [facility] History of tobacco use QUIT TOBACCO >7 Y EARS AGO 09/11/2017 [facility] History of tobacco use QUIT TOBACCO >7 Y EARS AGO 2017 [facility] History of tobacco use CURRENT NON-SMOKER 02/23/2016 [facility] History of tobacco use ONS TOBACCO USE F ORMER GREATER THAN 7Y 06/17/2014 [facility] History of tobacco use ONS TOBACCO USE F ORMER GREATER THAN 7Y 06/06/2014 [facility] History of tobacco use ONS TOBACCO USE F ORMER GREATER THAN 7Y 06/02/2014 [facility] History of tobacco use ONS TOBACCO USE F ORMER GREATER THAN 7Y 05/07/2014 [facility] History of tobacco use ONS TOBACCO LIFET FRANNY NON-USER 06/26/2013 [facility] History of tobacco use QUIT TOBACCO >7 Y EARS AGO 03/11/2010 [facility] Plan of Care List of future care activities from [facility] facilities. Additional future care activities may be listed in the Assessment and Plan section. Date/Time Care Activity Care Activity Detail Facili ty 10/15/2024 AMBULATORY - MEDICINE AMBULATORY - [facility] Advance Directives List of completed, amended, or rescinded Advance Directives on record at [facility] facilities. An actual copy of the Directive is not included. Date Advance Directive Provider Source 10/22/2016 ADVANCE DIRECTIVE DISCUSSION YONI [facility]UTISTA [facility] 10/22/2016 ADVANCE DIRECTIVE ELEAZAR BAUTISTA [facility] 10/22/2016 ADVANCE DIRECTIVE DISCUSSION YONI BA[facility]ISTA [facility] 04/20/2011 ADVANCE DIRECTIVE QUIANA MEDEIROS [facility]
--- OUTSIDE RECORDS SUMMARY | 2024-09-20 18:53 | XMS_ITS | Clinical Summary ---
Author Organization [facility] Address [address] Attn: Epic Prelude ADT DEBBIE IBARRA [id number] Care Team Providers Care Supervisor Grower Name Role Phone Satish Garza MD Primary Care Provider Allergies Active Allergy Reactions Criticality Noted Date Comments Albuterol Unknown 04/17/2019 Lisinopril Unknown 04/17/2019 Nifedipine Unknown 04/17/2019 Prednisone Unknown 04/17/2019 Medications POTASSIUM CHLORIDE ORAL Take 10 mEq by mouth daily. Active adalimumab (HUMIRA) 40 mg/0.8 mL Syringe Kit Inject 40 mg by subcutaneous injection. Active hydroCHLOROthia zide 25 mg tablet Take 25 mg by mouth daily. Active losartan (COZAAR) 100 mg tablet Take 100 mg by mouth daily. 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 Gender Identity Not on file Sexual Orientation Not on file Last Filed Vital Signs Vital Sign Reading Time Taken Comments Blood Pressure 144/80 04/21/2019 10:41 AM HVAC/R SERVICE TECHNICIAN Pulse 103 04/21/2019 10:41 AM HVAC/R SERVICE TECHNICIAN Temperature 36.3 C (97.4 F) 04/21/2019 10:41 AM HVAC/R SERVICE TECHNICIAN Respiratory Rate 20 04/21/2019 10:41 AM HVAC/R SERVICE TECHNICIAN Oxygen Saturation - - Inhaled Oxygen Concentration - - Weight 90.8 kg (200 lb 3.2 oz) 04/21/2019 4:00 A M HVAC/R SERVICE TECHNICIAN Height 170.2 cm (5' 7 ) 04/17/2019 4:24 PM HVAC/R SERVICE TECHNICIAN Body Mass Index 31.36 04/17/2019 4:24 PM HVAC/R SERVICE TECHNICIAN Plan of Treatment Health Maintenance Due Date Last Done Comments DTAP/TDAP/TD VACCINES (1 - Tdap) 1964 PNEUMOCOCCAL VACCINE 50+ YEARS (1 of 1 - PCV) 08/15/18 97 ZOSTER VACCINE (1 of 2) 1996 RSV VACCINE (60+ or ) (1 - 1-dose 75+ series) 2021 INFLUENZA VACCINE (#1) 2024 01/24/2019 Care Teams Supervisor Grower Relationship Specialty Start Date End Date Satish Garza MD PCP - General Emergency Medicine 04/17/19
--- OUTSIDE RECORDS SUMMARY | 2024-09-20 18:53 | XMS_ITS | Clinical Summary ---
[facility] Address [address] [place] [address] Phone Care Team Providers Care Principal Planner Name Role Phone Satish Garza MD Primary Care Provider + [phone] Allergies Active Allergy Reactions Criticality Noted Date Comments Albuterol Unknown 04/17/2019 Lisinopril Unknown 04/17/2019 Nifedipine Unknown 04/17/2019 Prednisone Unknown 04/17/2019 Medications losartan (COZAAR) 100 mg tablet Take 100 mg by mouth daily. Active hydroCHLOROthia zide 25 mg tablet Take 25 mg by mouth daily. Active adalimumab (HUMIRA) 40 mg/0.8 mL Syringe Kit Inject by subcutaneous injection. Active POTASSIUM CHLORIDE ORAL Take 10 mEq by mouth. Active Active Problems Problem Noted Date Diagnosed Date Paroxysmal atrial fibrillation 04/17/2019 Atrial fibrillation with RVR 04/17/2019 COPD with exacerbation 04/17/2019 HTN (hypertension), benign 04/17/2019 Acute respiratory failure with hypoxia 0 Elevated serum creatinine 04/17/2019 Immunizations Immunization Administration Dates Next Due Influenza Seasonal Unspecified Formulation IM Social History Tobacco Use Types Packs/Day Years Used Date Smoking Tobacco: Former Alcohol Use Standard Drinks/Week Comments Never 0 (1 standard drink = 0.6 oz pur e alcohol) Sex and Gender Information Value Date Recorded Sex Assigned at Not on file Legal Sex Male 8:23 AM PROVIDER NETWORK ANALYST Gender Identity Not on file Sexual Orientation Not on file Last Filed Vital Signs Vital Sign Reading Time Taken Comments Blood Pressure 144/80 04/21/2019 10:41 AM PROVIDER NETWORK ANALYST Pulse 103 04/21/2019 10:41 AM PROVIDER NETWORK ANALYST Temperature 36.3 C (97.4 F) 04/21/2019 10:41 AM PROVIDER NETWORK ANALYST Respiratory Rate 20 04/21/2019 10:41 AM PROVIDER NETWORK ANALYST Oxygen Saturation 100% 04/21/2019 10:41 AM PROVIDER NETWORK ANALYST Inhaled Oxygen Concentration - - Weight 90.8 kg (200 lb 3.2 oz) 04/21/2019 4:00 A M PROVIDER NETWORK ANALYST Height 170.2 cm (5' 7 ) 04/17/2019 4:24 PM PROVIDER NETWORK ANALYST Body Mass Index 31.36 04/17/2019 4:24 PM PROVIDER NETWORK ANALYST Plan of Treatment Health Maintenance Due Date Last Done Comments DTAP/TDAP/TD VACCINES (1 - Tdap) 1964 PNEUMOCOCCAL VACCINE 50+ YEARS (1 of 2 - PCV) 08/15/18 66 ZOSTER VACCINE (1 of 2) 1996 RSV VACCINE (60+ or ) (1 - 1-dose 75+ series) 2021 INFLUENZA VACCINE (#1) 2024 01/24/2019 Insurance MEDICARE PART A AND B [employer] Advance Directives For more information, please contact: [phone] * Full Code (Latest Code Status on File) Date Activated Date Inactivated Comments 04/17/2019 5:11 PM 04/21/2019 3:20 PM Care Teams Principal Planner Relationship Specialty Start Date End Date Satish Garza MD PCP - General Emergency Medicine 04/17/19
--- OUTSIDE RECORDS SUMMARY | 2024-09-20 18:53 | XMS_ITS | Patient Health Record ---
Author Organization [facility] Address [address] [place] [address] Support Name Relationship Address Phone Chito Ford Guarantor Unknown [phone] Allergies Allergen (clinical drug ingredient) Drug/Non Drug Allergy documented on EMR Reaction Allergy Type Onset Date Status albuterol Albuterol , Drug Allergy Active Prednisone , Drug Allergy Active Reason For Referral No Information Medications Medication SIG (Take, Route, Frequency, Duration) Notes Start Date End Date Status Humira Humira 10/30/2018 Active hydroCHLOROthiazide Hydrochlorothiazide 09/23/2018 Active Chloe Aspirin Chloe Aspirin 09/23/2018 Active Losartan Losartan 09/23/2018 Active Immunizations Vaccine Route Administration Date Status Comme nts Influenza (whole), CPT 05491 Inactive Unknown 03/03/2018 Administered Social History Social History Additional Details Category Social Info Options Details zzMigrated Social History Migrated Social History Smoking Status:Ex-smoker (finding) Plan Of Treatment No Information
--- NOTE | 2024-09-20 19:18 | W.ED.AMS ---
Documented by User: BISMARK Da Silva 09/21/24 00:47 HPI - Altered Mental Status General: Chief Complaint: Altered Mental Status Stated Complaint: MHE Time Seen by Provider: 09/20/24 19:08 History of Present Illness: Patient is a 79-year-old gentleman, with family noting mild dementia presents with stepdaughter and son-in-law to ED, with bizarre behavior. Extenuating circumstances: Patient's 1 week ago. Step daughter and son have been staying with patient, noting that he is up in the middle of the night, urinating in the house, walking in the house naked. They state patient typically does not have symptoms of his dementia. Lynne arrives, and notes in the last 2-3 hours prior to arrival, he had incontinence of stool, and her gave him a shower. She states that his symptoms were worsening over the last 2-3 hours. He has had the bizarre behavior the last 2-3 days with gaps in his speech, however now is having word salad. He is not on aspirin according to her medication list. Associated symptoms: Deny depression, homicidal ideation or suicidal ideation Related Data Home Medications ?Medication ?Instructions ?Recorded ?Confirmed adalimumab 40 mg/0.8 mL See Rx Instructions SUBCUT .WEEKLY 05/11/20 09/14/24 subcutaneous pen kit aspirin 81 mg tablet,delayed 81 mg PO DAILY 05/11/20 09/14/24 release (Adult Aspirin Regimen) cholecalciferol (vitamin D3) 625 625 mcg PO DAILY 05/11/20 09/14/24 mcg (25,000 unit) capsule dabigatran etexilate 150 mg 150 mg PO BID 05/11/20 09/14/24 capsule (Pradaxa) diltiazem HCl 120 mg 120 mg PO DAILY 05/11/20 09/14/24 capsule,extended release 24 hr hydrochlorothiazide 25 mg tablet 25 mg PO DAILY 05/11/20 09/14/24 losartan 100 mg tablet 100 mg PO DAILY 05/11/20 09/14/24 potassium chloride 10 mEq 10 meq PO DAILY 05/11/20 09/14/24 capsule,extended release pravastatin 10 mg tablet 10 mg PO QPM 05/11/20 09/14/24 tamsulosin 0.4 mg capsule 0.8 mg PO QPM 01/08/23 09/14/24 polyethylene glycol 3350 17 17 g PO DAILY PRN Constipation 03/13/23 09/14/24 gram/dose oral powder (Miralax) memantine 5 tab PO BID 07/30/24 09/14/24 meclizine 25 mg tablet 25 mg PO TID 07/31/24 09/14/24 Previous Rx's ?Medication ?Instructions ?Recorded finasteride 5 mg tablet 5 mg PO QDAY #90 tabs 10/24/20 oxybutynin chloride 5 mg tablet 5 mg PO BID #180 tabs 05/07/22 CAM boot #1 ea 03/25/23 wheelchair #1 ea 03/25/23 hydrocodone 5 mg-acetaminophen 325 1 tab PO Q6H PRN pain 5 days #20 04/12/23 mg tablet tabs ASO brace #1 ea 05/29/23 Allergies Allergy/AdvReac Type Severity Reaction Status Date / Time albuterol Allergy unknown Verified 09/14/24 14:08 lisinopril Allergy unknown Verified 09/14/24 14:08 nifedipine Allergy Unknown Verified 09/14/24 14:08 prednisone Allergy unknown Verified 09/14/24 14:08 Review of Systems General: Reports: 10 or more systems reviewed and unremarkable except in HPI and below Const: Denies: fever(s) or chills Eyes: Denies: change in vision or blurry vision ENMT: Denies: throat pain or nasal congestion Card: Denies: chest pain or palpitations Resp: Denies: dyspnea or non-productive cough GI: Denies: abdominal pain, nausea or vomiting : Reports: urinary incontinence; Denies: flank pain or difficulty urinating Musc: Denies: neck pain, back pain or extremity pain Skin/Breast: Denies: rash or pruritus Neuro: Reports: weakness in extremities, lack of coordination, difficulty walking, confusion, behavioral changes and Slurred speech present; Denies: headache(s), numbness in extremities or sensory changes Psych: Reports: mood swings; Denies: anxiety, depression, suicidal ideation or homicidal ideation Endo: Reports: polyuria PFS ED PFSH: Medical History (Updated 09/21/24 @ 00:47 by BISMARK Da Silva) Dyslipidemia Essential hypertension Anticoagulation adequate with anticoagulant therapy Psoriasis Unspecified atrial fibrillation Essential hypertension COPD (chronic obstructive pulmonary disease) PTSD (post-traumatic stress disorder) Heart disease Diabetes mellitus BPH loc w urin obs/LUTS Elevated PSA Surgical History Hx of heart artery stent Family History Brother , AT AGE 56 PROSTATE Cancer Sister Cancer 2 SISTERS WITH BREAST CANCER Father , AT AGE 83 HEART ATTACK CAD (coronary artery disease) MOTHER AT AGE 86 UNKNOWN CAUSE Mother , at age 89 No problems noted. Social History Smoking and tobacco/nicotine status: unknown if used tobacco/nicotine Second hand smoke exposure: Yes ( SMOKES) Alcohol intake: never Marital status: Current occupational status: retired Physical Exam Const: COMMON NORMALS: patient oriented x3 and alert HENMT: COMMON NORMALS: normocephalic, atraumatic and hearing grossly normal bilaterally HEAD & SCALP: normocephalic and atraumatic FACE & SINUS: normal facial exam Neck/C-Spine: COMMON NORMALS: full ROM and no lymphadenopathy Lymph: LYMPHATIC: no lymphadenopathy noted Chest: COMMONS NORMALS: normal inspection of the chest and normal palpation of entire chest wall Resp: COMMON NORMALS: normal respiratory effort, No retractions and clear to auscultation bilaterally AUSCULTATION: clear to auscultation bilaterally Cardio: COMMON NORMALS: regular rate and regular rhythm RATE: regular rate RHYTHM: regular rhythm GI: COMMON NORMALS: Normal to inspection, nondistended, normoactive bowel sounds present, Soft to palpation and non-tender PALPATION: Yes Soft to palpation : COMMON NORMALS: Yes no CVA tenderness BLADDER/KIDNEY EXAM: Yes no CVA tenderness Back/Pelvis: COMMON NORMALS: no CVA tenderness Extremity: COMMON NORMALS: normal to inspection, full ROM and capillary refill normal Neuro: COMMON NORMALS: patient oriented x3 and moves all extremities SENSORIUM/ORIENTATION: Yes alert COORDINATION/BALANCE: No [id number] test normal (unable to follow directions) and No [id number] test normal (unable to follow directions) SPEECH: abnormal speech Details: garbled and expressive aphasia GAIT: Yes Normal gait present MOTOR EXAM: 5/5 motor strength present throughout COORDINATION: [id number] test abnormal (unable to follow directions) and [id number] test abnormal (unable to follow directions) Psych: COMMON NORMALS: mental status grossly normal and Normal thought process present THOUGHT PROCESS: Normal thought process present Course Consultations: Consultation #1: Discussed with Dr. Teixeira that we will except patient as observation for PT/OT/ST evaluation and possibly MRI tomorrow. Vital Signs: Vital signs: Vital Signs Temperature 98.1 F 09/20/24 18:49 Pulse Rate 112 H 09/20/24 23:29 Respiratory Rate 16 09/20/24 23:29 Blood Pressure 167/77 09/20/24 23:29 Pulse Oximetry 96 09/20/24 23:29 Oxygen Delivery Me thod Room Air 09/20/24 23:29 MDM - Altered Mental Status Medical Decision Making Patient is a 79-year-old gentleman with waning and waxing symptoms, worsening for the past few hours, presents with neurochanges for 2 days, potentially relating to the of his . He was not on aspirin at the time of these neurochanges, and was taking his Pradaxa. Discussed the case with Dr. Teixeira that has excepted his observation for further evaluation. Medical Records I reviewed the patient's medical records. Lab Data I reviewed the patient's lab results. 09/20/24 20:31 09/20/24 20:[address] 09/20/24 19:56 IMPRESSION: 1. No acute intracranial findings. 2. Moderate cerebral atrophy. Chest X-Ray 09/20/24 19:57 IMPRESSION: Stable appearance of chronic lung markings. No focal consolidation to suggest overlying pneumonia. Head/Neck CTA 09/20/24 21:58 IMPRESSION: No acute large vessel arterial abnormality in the head. IMPRESSION: No acute large vessel arterial abnormality in the neck. REFERENCES: NASCET CRITERIA. The degree of stenosis in the cervical segment of the internal carotid artery is based on NASCET criteria. Normal is no stenosis. Mild is less than 50% stenosis. Moderate is 50-69% stenosis. Severe is 70% to 99% stenosis. Total occlusion is no detectable patent lumen. Laboratory Results WBC 9.30 10^3/uL (3.29-11.43) 09/20/24 20: RBC 4.71 10^6/uL (3.85-5.65) 09/20/24 20: Hgb 13.70 g/dL (11.27-16.99) 09/20/24 20: Hct 43.8 % (37-53) 09/20/24 20: MCV 93.0 fl (82-101) 09/20/24 20: MCH 29.1 pg (27-33) 09/20/24 20: MCHC 31.3 g/dL (30-55) 09/20/24 20: RDW 13.1 % (12.1-15.1) 09/20/24: Plt Count 246 10^3/cmm (157-399) 09/20/24: MPV 9.8 fL (7.4-10.4) 09/20/24 20: Neut % (Auto) 68.8 % 09/20/24: Lymph % (Auto) 18.5 % 09/20/24: [place] % (Auto) 10.3 % 09/20/24 20: Eos % (Auto) 1.8 % 09/20/24: Baso % (Auto) 0.3 % 09/20/24: Neut # (Auto) 6.39 10^3/uL (1.8-7.7) 09/20/24: Lymph # (Auto) 1.7 10^3/uL (0.8-4.8) 09/20/24: [place] # (Auto) 1.0 10^3/uL (0.2-0.9) H 09/20/24 20: Eos # (Auto) 0.2 10^3/uL (0.0-0.8) 09/20/24: Baso # (Auto) 0.0 10^3/uL (0.0-0.1) 09/20/24 20: Nucleated RBC % (auto) 0 % 09/20/24: Nucleated RBCs # 0.0 /100WBC 09/20/24 20: Sodium 137 mmol/L (136-145) 09/20/24 20: Potassium 3.0 mmol/L (3.5-5.1) L 09/20/24 20: Chloride 99 mmol/L (98-107) 09/20/24 20: Carbon Dioxide 23 mmol/L (22-29) 09/20/24 20: Anion Gap 18.0 (5-19) 09/20/24 20: BUN 26 mg/dL (8-23) H 09/20/24 20: Creatinine 1.2 mg/dL (0.7-1.2) 09/20/24 20: GFR Calculation Not Reportable 09/20/24 20: Glucose 135 mg/dL (65-115) H 09/20/24 20: Calculated Osmolality 291 mOsm/kg (285-295) 09/20/24 20: Lactic Acid 1.8 mmol/L (0.5-2.2) 09/20/24 20: Calcium 10.1 mg/dL (8.5-10.5) 09/20/24 20: Total Bilirubin 0.5 mg/dL (0.15-1.2) 09/20/24 20: AST 20 U/L (0-40) 09/20/24 20: ALT 14 U/L (0-41) 09/20/24 20: Alkaline Phosphatase 93 U/L (40-130) 09/20/24 20: Ammonia 53 umol/L (16-60) 09/20/24 20:31 Total Protein 7.5 g/dL (6.6-8.7) 09/20/24 20: Albumin 4.5 g/dL (3.5-5.2) 09/20/24 20: Globulin 3.0 g/dL (1.3-4.6) 09/20/24 20: TSH 3.84 uIU/mL (0.27-4.20) 09/20/24 20:31 Urine Color Yellow (Yellow) 09/20/24 19:24 Urine Appearance Clear (CLEAR) 09/20/24 19:24 Urine pH 5.5 (5-7) 09/20/24 19:24 Ur Specific [place] 1.008 (1.005-1.030) 09/20/24 19:24 Urine Protein Negative (Negative) 09/20/24 19:24 Urine Glucose (UA) Negative (Normal) 09/20/24 19:24 Urine Ketones Negative (Negative) 09/20/24 19:24 Urine Blood 3+ (Negative) A 09/20/24 19:24 Urine Nitrate Negative (Negative) 09/20/24 19:24 Urine Bilirubin Negative (Negative) 09/20/24 19:24 Urine Urobilinogen 1.0 mg/dL (Negative) 09/20/24 19:24 Ur Leukocyte Esterase Trace (Negative) A 09/20/24 19:24 Urine RBC 11-20 /hpf (0-2) H 09/20/24 19:24 Urine WBC 0-5 /hpf (0-5) 09/20/24 19:24 Ur Squamous Epith Cells 0-5 /hpf (0-5) 09/20/24 19:24 Amorphous Sediment Not Reportable 09/20/24 19:24 Urine Bacteria None seen /hpf (NONE) 09/20/24 19:24 Hyaline Casts 0-4 /lpf H 09/20/24 19:24 Urine Opiates Screen Negative ng/mL (Negative) 09/20/24 19:24 Ur Barbiturates Screen Negative ng/mL (Negative) 09/20/24 19:24 Ur Phencyclidine Scrn Negative ng/mL (Negative) 09/20/24 19:24 Ur Amphetamines Screen Negative ng/mL (Negative) 09/20/24 19:24 U Benzodiazepines Scrn Negative ng/mL (Negative) 09/20/24 19:24 Urine Cocaine Screen Negative ng/mL (Negative) 09/20/24 19:24 U Marijuana (THC) Screen Negative ng/mL (Negative) 09/20/24 19:24 Ethyl Alcohol < 10 mg/dL (0-10) 09/20/24 20:31 All radiology interpretation(s) finalized by discharge EKG Data EKG 1: Interpretation: Atrial fibrillation, QTc of 460 Discharge Plan Discharge Patient Disposition: Placed in Observation Clinical Impression: Hypokalemia, Grief reaction CVA (cerebral vascular accident) Qualifiers: CVA mechanism: unspecified Qualified Code(s): I63.9 - Cerebral infarction, unspecified Discharge Diet: Usual diet Coding Level of Care Code ED Unit Clerk for Chg Fwd Documented by User: rBendon Purdy, DO 09/21/24 00:48 HPI - Altered Mental Status General: Chief Complaint: Altered Mental Status Stated Complaint: MHE Time Seen by Provider: 09/20/24 19:08 Related Data Home Medications ?Medication ?Instructions ?Recorded ?Confirmed adalimumab 40 mg/0.8 mL See Rx Instructions SUBCUT .WEEKLY 05/11/20 09/14/24 subcutaneous pen kit aspirin 81 mg tablet,delayed 81 mg PO DAILY 05/11/20 09/14/24 release (Adult Aspirin Regimen) cholecalciferol (vitamin D3) 625 625 mcg PO DAILY 05/11/20 09/14/24 mcg (25,000 unit) capsule dabigatran etexilate 150 mg 150 mg PO BID 05/11/20 09/14/24 capsule (Pradaxa) diltiazem HCl 120 mg 120 mg PO DAILY 05/11/20 09/14/24 capsule,extended release 24 hr hydrochlorothiazide 25 mg tablet 25 mg PO DAILY 05/11/20 09/14/24 losartan 100 mg tablet 100 mg PO DAILY 05/11/20 09/14/24 potassium chloride 10 mEq 10 meq PO DAILY 05/11/20 09/14/24 capsule,extended release pravastatin 10 mg tablet 10 mg PO QPM 05/11/20 09/14/24 tamsulosin 0.4 mg capsule 0.8 mg PO QPM 01/08/23 09/14/24 polyethylene glycol 3350 17 17 g PO DAILY PRN Constipation 03/13/23 09/14/24 gram/dose oral powder (Miralax) memantine 5 tab PO BID 07/30/24 09/14/24 meclizine 25 mg tablet 25 mg PO TID 07/31/24 09/14/24 Previous Rx's ?Medication ?Instructions ?Recorded finasteride 5 mg tablet 5 mg PO QDAY #90 tabs 10/24/20 oxybutynin chloride 5 mg tablet 5 mg PO BID #180 tabs 05/07/22 CAM boot #1 ea 03/25/23 wheelchair #1 ea 03/25/23 hydrocodone 5 mg-acetaminophen 325 1 tab PO Q6H PRN pain 5 days #20 04/12/23 mg tablet tabs ASO brace #1 ea 05/29/23 Allergies Allergy/AdvReac Type Severity Reaction Status Date / Time albuterol Allergy unknown Verified 09/14/24 14:08 lisinopril Allergy unknown Verified 09/14/24 14:08 nifedipine Allergy Unknown Verified 09/14/24 14:08 prednisone Allergy unknown Verified 09/14/24 14:08 PFSH ED PFSH: Medical History (Updated 09/21/24 @ 00:47 by BISMARK Da Silva) Dyslipidemia Essential hypertension Anticoagulation adequate with anticoagulant therapy Psoriasis Unspecified atrial fibrillation Essential hypertension COPD (chronic obstructive pulmonary disease) PTSD (post-traumatic stress disorder) Heart disease Diabetes mellitus BPH loc w urin obs/LUTS Elevated PSA Surgical History Hx of heart artery stent Family History Brother , AT AGE 56 PROSTATE Cancer Sister Cancer 2 SISTERS WITH BREAST CANCER Father , AT AGE 83 HEART ATTACK CAD (coronary artery disease) MOTHER AT AGE 86 UNKNOWN CAUSE Mother , at age 89 No problems noted. Social History Smoking and tobacco/nicotine status: unknown if used tobacco/nicotine Second hand smoke exposure: Yes ( SMOKES) Alcohol intake: never Marital status: Current occupational status: retired Course Vital Signs: Vital signs: Vital Signs Temperature 98.1 F 09/20/24 18:49 Pulse Rate 112 H 09/20/24 23:29 Respiratory Rate 16 09/20/24 23:29 Blood Pressure 167/77 09/20/24 23:29 Pulse Oximetry 96 09/20/24 23:29 Oxygen Delivery Me thod Room Air 09/20/24 23:29 MDM - Altered Mental Status Medical Decision Making Patient is a 79-year-old gentleman with waning and waxing symptoms, worsening for the past few hours, presents with neurochanges for 2 days, potentially relating to the of his . He was not on aspirin at the time of these neurochanges, and was taking his Pradaxa. Discussed the case with Dr. Teixeira that has excepted his observation for further evaluation. This patient was originally seen by Mrs. Rudy PA-C. I agree with her history, evaluation, and management. Orders are written for observation. Lab Data 09/20/24 20:31 09/20/24 20:[address] 09/20/24 19:56 IMPRESSION: 1. No acute intracranial findings. 2. Moderate cerebral atrophy. Chest X-Ray 09/20/24 19:57 IMPRESSION: Stable appearance of chronic lung markings. No focal consolidation to suggest overlying pneumonia. Head/Neck CTA 09/20/24 21:58 IMPRESSION: No acute large vessel arterial abnormality in the head. IMPRESSION: No acute large vessel arterial abnormality in the neck. REFERENCES: NASCET CRITERIA. The degree of stenosis in the cervical segment of the internal carotid artery is based on NASCET criteria. Normal is no stenosis. Mild is less than 50% stenosis. Moderate is 50-69% stenosis. Severe is 70% to 99% stenosis. Total occlusion is no detectable patent lumen. Laboratory Results WBC 9.30 10^3/uL (3.29-11.43) 09/20/24 20: RBC 4.71 10^6/uL (3.85-5.65) 09/20/24 20:31 Hgb 13.70 g/dL (11.27-16.99) 09/20/24 20:31 Hct 43.8 % (37-53) 09/20/24 20: MCV 93.0 fl (82-101) 09/20/24 20:31 MCH 29.1 pg (27-33) 09/20/24 20: MCHC 31.3 g/dL (30-55) 09/20/24 20: RDW 13.1 % (12.1-15.1) 09/20/24 20:31 Plt Count 246 10^3/cmm (157-399) 09/20/24 20:31 MPV 9.8 fL (7.4-10.4) 09/20/24 20:31 Neut % (Auto) 68.8 % 09/20/24 20:31 Lymph % (Auto) 18.5 % 09/20/24 20:31 [place] % (Auto) 10.3 % 09/20/24 20:31 Eos % (Auto) 1.8 % 09/20/24 20:31 Baso % (Auto) 0.3 % 09/20/24 20:31 Neut # (Auto) 6.39 10^3/uL (1.8-7.7) 09/20/24 20:31 Lymph # (Auto) 1.7 10^3/uL (0.8-4.8) 09/20/24 20:31 [place] # (Auto) 1.0 10^3/uL (0.2-0.9) H 09/20/24 20:31 Eos # (Auto) 0.2 10^3/uL (0.0-0.8) 09/20/24 20: Baso # (Auto) 0.0 10^3/uL (0.0-0.1) 09/20/24 20:31 Nucleated RBC % (auto) 0 % 09/20/24 20: Nucleated RBCs # 0.0 /100WBC 09/20/24 20:31 Sodium 137 mmol/L (136-145) 09/20/24 20:31 Potassium 3.0 mmol/L (3.5-5.1) L 09/20/24 20:31 Chloride 99 mmol/L (98-107) 09/20/24 20:31 Carbon Dioxide 23 mmol/L (22-29) 09/20/24 20:31 Anion Gap 18.0 (5-19) 09/20/24 20:31 BUN 26 mg/dL (8-23) H 09/20/24 20:31 Creatinine 1.2 mg/dL (0.7-1.2) 09/20/24 20:31 GFR Calculation Not Reportable 09/20/24 20:31 Glucose 135 mg/dL (65-115) H 09/20/24 20:31 Calculated Osmolality 291 mOsm/kg (285-295) 09/20/24 20:31 Lactic Acid 1.8 mmol/L (0.5-2.2) 09/20/24 20:31 Calcium 10.1 mg/dL (8.5-10.5) 09/20/24 20:31 Total Bilirubin 0.5 mg/dL (0.15-1.2) 09/20/24 20:31 AST 20 U/L (0-40) 09/20/24 20:31 ALT 14 U/L (0-41) 09/20/24 20:31 Alkaline Phosphatase 93 U/L (40-130) 09/20/24 20:31 Ammonia 53 umol/L (16-60) 09/20/24 20:31 Total Protein 7.5 g/dL (6.6-8.7) 09/20/24 20: Albumin 4.5 g/dL (3.5-5.2) 09/20/24 20: Globulin 3.0 g/dL (1.3-4.6) 09/20/24 20: TSH 3.84 uIU/mL (0.27-4.20) 09/20/24 20:31 Urine Color Yellow (Yellow) 09/20/24 19:24 Urine Appearance Clear (CLEAR) 09/20/24 19:24 Urine pH 5.5 (5-7) 09/20/24 19:24 Ur Specific [place] 1.008 (1.005-1.030) 09/20/24 19:24 Urine Protein Negative (Negative) 09/20/24 19:24 Urine Glucose (UA) Negative (Normal) 09/20/24 19:24 Urine Ketones Negative (Negative) 09/20/24 19:24 Urine Blood 3+ (Negative) A 09/20/24 19:24 Urine Nitrate Negative (Negative) 09/20/24 19:24 Urine Bilirubin Negative (Negative) 09/20/24 19:24 Urine Urobilinogen 1.0 mg/dL (Negative) 09/20/24 19:24 Ur Leukocyte Esterase Trace (Negative) A 09/20/24 19:24 Urine RBC 11-20 /hpf (0-2) H 09/20/24 19:24 Urine WBC 0-5 /hpf (0-5) 09/20/24 19:24 Ur Squamous Epith Cells 0-5 /hpf (0-5) 09/20/24 19:24 Amorphous Sediment Not Reportable 09/20/24 19:24 Urine Bacteria None seen /hpf (NONE) 09/20/24 19:24 Hyaline Casts 0-4 /lpf H 09/20/24 19:24 Urine Opiates Screen Negative ng/mL (Negative) 09/20/24 19:24 Ur Barbiturates Screen Negative ng/mL (Negative) 09/20/24 19:24 Ur Phencyclidine Scrn Negative ng/mL (Negative) 09/20/24 19:24 Ur Amphetamines Screen Negative ng/mL (Negative) 09/20/24 19:24 U Benzodiazepines Scrn Negative ng/mL (Negative) 09/20/24 19:24 Urine Cocaine Screen Negative ng/mL (Negative) 09/20/24 19:24 U Marijuana (THC) Screen Negative ng/mL (Negative) 09/20/24 19:24 Ethyl Alcohol < 10 mg/dL (0-10) 09/20/24 20:31 Discharge Plan Discharge Patient Disposition: Placed in Observation Clinical Impression: Hypokalemia, Grief reaction CVA (cerebral vascular accident) Qualifiers: CVA mechanism: unspecified Qualified Code(s): I63.9 - Cerebral infarction, unspecified Discharge Diet: Usual diet Coding Level of Care Code ED Unit Clerk for Mary Ball
[2024-09-20 19:40] LABS: Glucose Urine UA Negative (Normal); Nitrate Urine Negative (Negative); Specific Gravity, Urine 1.008 (1.005-1.030)
[2024-09-20 19:43] LABS: Add Urine Microscopic? YES
[2024-09-20 19:46] LABS: PCP Screen Urine Negative (Negative)
--- NOTE | 2024-09-20 19:56 | CTR_ITS ---
PROCEDURE INFORMATION: Exam: CT Head Without Contrast Exam date and time: 09/20/2024 8:17 PM Age: 79 years old Clinical indication: Altered mental status/memory loss; Per family patient has been having increased confusion over the last week. Patient restless and uttering nonsensical phrases upon exam. History of dementia. ; Additional info: Altered mentation TECHNIQUE: Imaging protocol: Computed tomography of the head without contrast. Radiation optimization: All CT scans at this facility use at least one of these dose optimization techniques: automated exposure control; mA and/or kV adjustment per patient size (includes targeted exams where dose is matched to clinical indication); or iterative reconstruction. COMPARISON: RF FL barium swallow [id number] 09/04/2023 8:15 AM RADIATION DOSE METRICS: Total DLP (mGy-cm): 1099.7 FINDINGS: Brain: Moderate cerebral atrophy. Mild nonspecific periventricular white matter disease. No evidence of acute intracranial hemorrhage. No evidence of large territorial infarct. No midline shift. Cerebral ventricles: Mild chronic compensatory enlargement of the lateral ventricles secondary to atrophy. Paranasal sinuses: Visualized paranasal sinuses are clear. Mastoid air cells: Mastoid air cells are clear. Bones: No acute osseous findings. Soft tissues: Visualized superficial soft tissues are within normal limits. CT/CT head wo con* [id number] IMPRESSION: 1. No acute intracranial findings. 2. Moderate cerebral atrophy.
--- NOTE | 2024-09-20 19:57 | XRR_ITS ---
PROCEDURE INFORMATION: Exam: XR Chest Exam date and time: 09/20/2024 8:07 PM Age: 79 years old Clinical indication: Other: AMS; Prior surgery; Surgery date: 6+ months; Surgery type: Coronary stent; Per family patient has been having increased confusion over the last week. Patient restless and uttering nonsensical phrases upon exam. History of dementia. ; Additional info: Altered mentation TECHNIQUE: Imaging protocol: Radiologic exam of the chest. Views: 1 view. COMPARISON: CR XR chest 2V* [id number] 10/10/2018 8:34 AM FINDINGS: Lungs: Stable appearance of chronic lung markings. No focal consolidation to suggest overlying pneumonia. Pleural spaces: No large pleural effusion. No distinct pneumothorax. Heart/Mediastinum: Cardiomediastinal silhouette is midline and normal in size. Bones/joints: No distinct acute osseous findings. XR/XR chest 1V portable [id number] IMPRESSION: Stable appearance of chronic lung markings. No focal consolidation to suggest overlying pneumonia.
--- NOTE | 2024-09-20 19:57 | ECG_ITS ---
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 Measurements Intervals [place] Rate: 91 P: 0 AK: 0 QRS: 70 QRSD: 169 T: 60 QT: 411 QTc: 508 Interpretive Statements ATRIAL FIBRILLATION INTRAVENTRICULAR CONDUCTION DELAY VENTRICULAR PREMATURE COMPLEX (PVC) Compared to ECG 08/03/2024 06:30:27 PVC IS NEW Electronically Signed On 09-23-2024 14:03:38 CDT by Yosi Estrada M.D. [id number]
[2024-09-20 20:42] LABS: Hematocrit 43.8 % (37-53); Hemoglobin 13.70 g/dL (11.27-16.99); Mean Corpuscular HGB Conc 31.3 g/dL (30-55); Mean Corpuscular Hemoglobin 29.1 pg (27-33); Mean Corpuscular Volume 93.0 fl (82-101); Nucleated Red Blood Cells % 0 %; Platelet Count 246 10^3/cmm (157-399); Red Blood Count 4.71 10^6/uL (3.85-5.65); White Blood Count 9.30 10^3/uL (3.29-11.43)
[2024-09-20 20:57] LABS: Lactic Sepsis W/Reflex 1.8 mmol/L (0.5-2.2)
[2024-09-20 21:38] LABS: Ammonia 53 umol/L (16-60)
[2024-09-20 21:47] LABS: Alanine Aminotransferase 14 U/L (0-41); Albumin Level 4.5 g/dL (3.5-5.2); Alcohol Level < 10 mg/dL (0-10); Alkaline Phosphatase 93 U/L (40-130); Anion Gap 18.0 (5-19); Aspartate Amino Transferase 20 U/L (0-40); Blood Urea Nitrogen 26 mg/dL (8-23); Calcium 10.1 mg/dL (8.5-10.5); Carbon Dioxide 23 mmol/L (22-29); Chloride 99 mmol/L (98-107); Creatinine Clr Calc Pharmacy 52.2623; Globulin 3.0 g/dL (1.3-4.6); Glucose 135 mg/dL (65-115); Osmolality Calculated 291 mOsm/kg (285-295); Potassium 3.0 mmol/L (3.5-5.1); Sodium 137 mmol/L (136-145); Thyroid Stimulating Hormone 3.84 uIU/mL (0.27-4.20); Total Protein 7.5 g/dL (6.6-8.7)
--- NOTE | 2024-09-20 21:58 | CTR_ITS ---
PROCEDURE INFORMATION: Exam: CTA Head With Contrast, Arteriography Exam date and time: 09/20/2024 10:49 PM Age: 79 years old Clinical indication: Cognitive deficit; Altered mental status; Per family patient has been having increased confusion over the last week. Patient restless and uttering nonsensical phrases upon exam. History of dementia. ; Additional info: Altered mentation TECHNIQUE: Imaging protocol: Computed tomographic angiography of the head with contrast. Exam focused on the arteries. 3D rendering (Not supervised by radiologist): MIP and/or 3D reconstructed images were created by the technologist. Radiation optimization: All CT scans at this facility use at least one of these dose optimization techniques: automated exposure control; mA and/or kV adjustment per patient size (includes targeted exams where dose is matched to clinical indication); or iterative reconstruction. Contrast material: OMNI 350; Contrast volume: 100 ml; Contrast route: INTRAVENOUS (IV); COMPARISON: CT head wo con* [id number] 09/20/2024 8:17 PM RADIATION DOSE METRICS: Total DLP (mGy-cm): 383.52 FINDINGS: ANTERIOR CIRCULATION: Right internal carotid artery: Intracranial segment is patent with no significant stenosis. No aneurysm. Right middle cerebral artery: No occlusion or significant stenosis. No aneurysm. Right anterior cerebral artery: No occlusion or significant stenosis. No aneurysm. Left internal carotid artery: Intracranial segment is patent with no significant stenosis. No aneurysm. Left middle cerebral artery: No occlusion or significant stenosis. No aneurysm. Left anterior cerebral artery: No occlusion or significant stenosis. No aneurysm. POSTERIOR CIRCULATION: Right vertebral artery: Right vertebral artery does not contribute significantly to the basilar artery. This is a normal variant. No occlusion or significant stenosis. No aneurysm. Left vertebral artery: No occlusion or significant stenosis. No aneurysm. Basilar artery: No occlusion or significant stenosis. No aneurysm. Right posterior cerebral artery: No occlusion or significant stenosis. No aneurysm. Left posterior cerebral artery: Persistent origin of the left WEIGHTS AND MEASURES INSPECTOR, a normal variant. No occlusion or significant stenosis. No aneurysm. Brain: Moderate cerebral atrophy. Mild nonspecific periventricular white matter disease. No evidence of acute intracranial hemorrhage. No midline shift. Cerebral ventricles: Mild chronic compensatory enlargement of the lateral ventricles secondary to atrophy. Bones/joints: No acute osseous findings. Soft tissues: Visualized superficial soft tissues are within normal limits. PROCEDURE INFORMATION: Exam: CTA Neck With Contrast Exam date and time: 09/20/2024 10:49 PM Age: 79 years old Clinical indication: Cognitive deficit; Altered mental status; Per family patient has been having increased confusion over the last week. Patient restless and uttering nonsensical phrases upon exam. History of dementia. ; Additional info: Altered mentation TECHNIQUE: Imaging protocol: Computed tomographic angiography of the neck with contrast. Exam focused on the cervical segments of the vasculature. 3D rendering (Not supervised by radiologist): MIP and/or 3D reconstructed images were created by the technologist. Radiation optimization: All CT scans at this facility use at least one of these dose optimization techniques: automated exposure control; mA and/or kV adjustment per patient size (includes targeted exams where dose is matched to clinical indication); or iterative reconstruction. Contrast material: OMNI 350; Contrast volume: 100 ml; Contrast route: INTRAVENOUS (IV); COMPARISON: CT head wo con* [id number] 09/20/2024 8:17 PM RADIATION DOSE METRICS: Total DLP (mGy-cm): 383.52 FINDINGS: Right common carotid artery: No stenosis. No dissection or occlusion. Right internal carotid artery: No stenosis of the extracranial segment. No dissection or occlusion. Right external carotid artery: No occlusion or stenosis of the origin. Left common carotid artery: No stenosis. No dissection or occlusion. Left internal carotid artery: No stenosis of the extracranial segment. No dissection or occlusion. Left external carotid artery: No occlusion or stenosis of the origin. Right vertebral artery: No stenosis. No dissection or occlusion. Left vertebral artery: No stenosis. No dissection or occlusion. Thyroid: Thyroid is normal. Soft tissues: Visualized superficial soft tissues are within normal limits. Bones/joints: No acute osseous findings. Lungs: Visualized lung apices demonstrate centrilobular emphysematous changes and moderate interstitial scarring. CT/CT angio headneck* [id number] IMPRESSION: No acute large vessel arterial abnormality in the head. IMPRESSION: No acute large vessel arterial abnormality in the neck. REFERENCES: NASCET CRITERIA. The degree of stenosis in the cervical segment of the internal carotid artery is based on NASCET criteria. Normal is no stenosis. Mild is less than 50% stenosis. Moderate is 50-69% stenosis. Severe is 70% to 99% stenosis. Total occlusion is no detectable patent lumen.
[2024-09-20] MEDS: LORazepam 1 MG/0.5 ML injection 0.5 MG IVP (22:42)
[2024-09-20] MEDS: iohexol 350 mg/mL 500 mL Btl (per mL) IV (22:57)
[2024-09-21] VITALS (7 sets, daily range): BP systolic 136–172; BP diastolic 67–94; PULSE 78–110; RESP 16–20; TEMP 36.6–36.8; O2SAT 94–97; BMI 25.9
--- NOTE | 2024-09-21 03:17 | PM.HP ---
Providers/Chief Complaint Admitting Physician: Ayde Teixeira MD Primary Care Provider: Linda Pickard APRN Chief Complaint: MHE History of Present Illness Chito Ford is a 79 year old male with a past medical history of dementia, diabetes mellitus, A-fib on anticoagulation with Pradaxa, chronically maintained on Humira possibly for a history of psoriasis. He presents to the emergency room brought in by his family due to worsening mental status changes. His family states that patient's 1-1/2 weeks ago. He was able to carry on his ADLs as is his baseline until this Saturday. 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 By Saturday his family started noticing that his behavior was odd. His conversations did not make much sense, he was talking out of context, was confused, hallucinating. Over the past 2 days this has gotten much worse to the point where he was walking naked in his house, he was incontinent, urinating in the house. He needed to be given a shower by his family members last night. Has not had any focal deficits on his exam. No falls have been reported. Patient has his usual medication set up by a visiting home health nurse. His family has checked his pillbox and it does not appear that patient has accidentally taken any extra medications. Family reports he has not slept in about 4 days now. There has been no complaint of fever chills cough URI type symptoms, abdominal pain nausea vomiting or diarrhea. There are no sick contacts in the house. There is no history of loss of consciousness or seizures. Patient reports a catch in his neck but no other pain. On exam today patient is alert, follows commands, able to tell me his correct name and date of , however cannot tell me how old he is. He knows he is in some kind of medical facility but cannot tell me where. When I ask him why he came to the hospital today, he states it is because he was hurt by the [place] . He appears to be having some visual hallucinations and tells me to be careful of the glass on the floor, when there is no glass around this at this time. Not consume any alcohol. Review of Systems General: Reports: ROS unobtainable due to mental status (Confused) Medications/Allergies Home Medications ?Medication ?Instructions ?Recorded ?Confirmed ?Last Taken ?Type adalimumab 40 mg/0.8 mL See Rx Instructions SUBCUT .WEEKLY 05/11/20 09/21/24 09/09/24 08:00 History subcutaneous pen kit aspirin 81 mg tablet,delayed 81 mg PO DAILY 05/11/20 09/21/24 09/20/24 08:00 History release (Adult Aspirin Regimen) dabigatran etexilate 150 mg 150 mg PO BID 05/11/20 09/21/24 09/20/24 08:00 History capsule (Pradaxa) diltiazem HCl 120 mg 120 mg PO DAILY 05/11/20 09/21/24 09/20/24 08:00 History capsule,extended release 24 hr hydrochlorothiazide 25 mg tablet 25 mg PO DAILY 05/11/20 09/21/24 09/20/24 08:00 History losartan 100 mg tablet 100 mg PO DAILY 05/11/20 09/21/24 09/20/24 08:00 History potassium chloride 10 mEq 20 meq PO DAILY 05/11/20 09/21/24 09/20/24 08:00 History capsule,extended release pravastatin 10 mg tablet 10 mg PO QPM 05/11/20 09/21/24 09/19/24 20:00 History finasteride 5 mg tablet 5 mg PO QDAY #90 tabs 10/24/20 09/21/24 09/20/24 08:00 Rx tamsulosin 0.4 mg capsule 0.8 mg PO QPM 01/08/23 09/21/24 09/19/24 20:00 History polyethylene glycol 3350 17 17 g PO DAILY PRN Constipation 03/13/23 09/21/24 04/02/23 History gram/dose oral powder (Miralax) wheelchair #1 ea 03/25/23 09/21/24 Unknown Rx memantine 5 tab PO DAILY 07/30/24 09/21/24 09/20/24 08:00 History meclizine 25 mg tablet 25 mg PO TID PRN Dizziness 07/31/24 09/21/24 09/20/24 08:00 History cholecalciferol (vitamin D3) 25 25 mcg PO DAILY 09/21/24 09/21/24 09/20/24 08:00 History mcg (1,000 unit) tablet cyanocobalamin (vitamin B-12) 1,000 mcg PO DAILY 09/21/24 09/21/24 09/20/24 08:00 History 1,000 mcg tablet fluticasone prop.50 mcg 1 spray intranasal DAILY 09/21/24 09/21/24 09/20/24 08:00 History spray,suspen-sod.chloride 0.9% nasal spray kit folic acid 1 mg tablet 1 mg PO DAILY 09/21/24 09/21/24 09/20/24 08:00 History hydrocortisone 2.5 % topical cream 1 applic topical QID PRN Rash 09/21/24 09/21/24 09/20/24 08:00 History memantine 5 mg tablet 10 mg PO QPM 09/21/24 09/21/24 09/19/24 20:00 History mirabegron 25 mg tablet,extended 25 mg PO DAILY 09/21/24 09/21/24 09/20/24 08:00 History release 24 hr Allergies Allergy/AdvReac Type Severity Reaction Status Date / Time albuterol Allergy unknown Verified 09/14/24 14:08 lisinopril Allergy unknown Verified 09/14/24 14:08 nifedipine Allergy Unknown Verified 09/14/24 14:08 prednisone Allergy unknown Verified 09/14/24 14:08 PFSH Acute PFSH: Medical History Dyslipidemia Essential hypertension Anticoagulation adequate with anticoagulant therapy Psoriasis Unspecified atrial fibrillation Essential hypertension COPD (chronic obstructive pulmonary disease) PTSD (post-traumatic stress disorder) Heart disease Diabetes mellitus BPH loc w urin obs/LUTS Elevated PSA Surgical History Hx of heart artery stent Family History Brother , AT AGE 56 PROSTATE Cancer Sister Cancer 2 SISTERS WITH BREAST CANCER Father , AT AGE 83 HEART ATTACK CAD (coronary artery disease) MOTHER AT AGE 86 UNKNOWN CAUSE Mother , at age 89 No problems noted. Social History Smoking and tobacco/nicotine status: unknown if used tobacco/nicotine Second hand smoke exposure: Yes ( SMOKES) Alcohol intake: never Marital status: Current occupational status: retired Vitals/I&O/Wt Last Vital Signs Temp 98.1 F 09/20/24 18:49 Pulse 88 09/21/24 02:06 Resp 16 09/20/24 23:29 BP 154/67 09/21/24 02:06 Pulse Ox 97 09/21/24 02:06 O2 Del Method Room Air 09/21/24 02:15 Weight last 48 hrs Weight 82.191 kg Weight 72.575 kg Weight 72.575 kg Physical Exam Narrative: General: No acute distress, AO x1-2 HEENT: PERRLA, pupils bilaterally equal and reactive, pallors not present Chest: Normal vesicular breath sounds, no added sounds, equal good air entry bilaterally CVS: S1-S2 regular, no murmurs, no tachycardia, no gallops, no rubs Abdomen: Soft, nontender, no organomegaly, bowel sounds present Neuro: NIH stroke scale 1 for mild aphasia. He is able to follow all commands. Opens and closes eyes. Makes a fist. Able to hold up both upper extremities to the count of 10. Able to hold up both lower extremities to the count of 5. Gaze is normal and symmetric. There is no facial asymmetry. Able to perform the finger-nose test and the edfx-ol-bpkt test accurately bilaterally. Sensation appears to be intact. Extremities: Toenail avulsion over the left great toe with chemical matrixectomy on September 14. He appears to have some fiber from socks stuck onto his great toe. Family was concerned that this is gangrene however does not appear to be so. Data 09/20/24 20:31 09/20/24 20:31 Other Labs: Radiology Impressions Head CT 09/20/24 19:56 IMPRESSION: 1. No acute intracranial findings. 2. Moderate cerebral atrophy. Chest X-Ray 09/20/24 19:57 IMPRESSION: Stable appearance of chronic lung markings. No focal consolidation to suggest overlying pneumonia. Head/Neck CTA 09/20/24 21:58 IMPRESSION: No acute large vessel arterial abnormality in the head. IMPRESSION: No acute large vessel arterial abnormality in the neck. REFERENCES: NASCET CRITERIA. The degree of stenosis in the cervical segment of the internal carotid artery is based on NASCET criteria. Normal is no stenosis. Mild is less than 50% stenosis. Moderate is 50-69% stenosis. Severe is 70% to 99% stenosis. Total occlusion is no detectable patent lumen. Laboratory Results WBC 9.30 10^3/uL (3.29-11.43) 09/20/24 20: RBC 4.71 10^6/uL (3.85-5.65) 09/20/24 20: Hgb 13.70 g/dL (11.27-16.99) 09/20/24 20: Hct 43.8 % (37-53) 09/20/24 20: MCV 93.0 fl (82-101) 09/20/24: MCH 29.1 pg (27-33) 09/20/24: MCHC 31.3 g/dL (30-55) 09/20/24 20: RDW 13.1 % (12.1-15.1) 09/20/24: Plt Count 246 10^3/cmm (157-399) 09/20/24 20: MPV 9.8 fL (7.4-10.4) 09/20/24 20: Neut % (Auto) 68.8 % 09/20/24 20: Lymph % (Auto) 18.5 % 09/20/24 20: [place] % (Auto) 10.3 % 09/20/24 20: Eos % (Auto) 1.8 % 09/20/24 20: Baso % (Auto) 0.3 % 09/20/24: Neut # (Auto) 6.39 10^3/uL (1.8-7.7) 09/20/24 20: Lymph # (Auto) 1.7 10^3/uL (0.8-4.8) 09/20/24: [place] # (Auto) 1.0 10^3/uL (0.2-0.9) H 09/20/24 20: Eos # (Auto) 0.2 10^3/uL (0.0-0.8) 09/20/24 20: Baso # (Auto) 0.0 10^3/uL (0.0-0.1) 09/20/24 20: Nucleated RBC % (auto) 0 % 09/20/24 20: Nucleated RBCs # 0.0 /100WBC 09/20/24 20: Sodium 137 mmol/L (136-145) 09/20/24 20: Potassium 3.0 mmol/L (3.5-5.1) L 09/20/24 20: Chloride 99 mmol/L (98-107) 09/20/24 20: Carbon Dioxide 23 mmol/L (22-29) 09/20/24 20: Anion Gap 18.0 (5-19) 09/20/24 20: BUN 26 mg/dL (8-23) H 09/20/24 20: Creatinine 1.2 mg/dL (0.7-1.2) 09/20/24: GFR Calculation Not Reportable 09/20/24: Glucose 135 mg/dL (65-115) H 09/20/24 20: Calculated Osmolality 291 mOsm/kg (285-295) 09/20/24: Lactic Acid 1.8 mmol/L (0.5-2.2) 09/20/24 20: Calcium 10.1 mg/dL (8.5-10.5) 09/20/24 20: Total Bilirubin 0.5 mg/dL (0.15-1.2) 09/20/24 20: AST 20 U/L (0-40) 09/20/24: ALT 14 U/L (0-41) 09/20/24 20: Alkaline Phosphatase 93 U/L (40-130) 09/20/24: Ammonia 53 umol/L (16-60) 09/20/24 20: Total Protein 7.5 g/dL (6.6-8.7) 09/20/24 20: Albumin 4.5 g/dL (3.5-5.2) 09/20/24 20: Globulin 3.0 g/dL (1.3-4.6) 09/20/24 20: TSH 3.84 uIU/mL (0.27-4.20) 09/20/24 20:31 Urine Color Yellow (Yellow) 09/20/24 19:24 Urine Appearance Clear (CLEAR) 09/20/24 19:24 Urine pH 5.5 (5-7) 09/20/24 19:24 Ur Specific [place] 1.008 (1.005-1.030) 09/20/24 19:24 Urine Protein Negative (Negative) 09/20/24 19:24 Urine Glucose (UA) Negative (Normal) 09/20/24 19:24 Urine Ketones Negative (Negative) 09/20/24 19:24 Urine Blood 3+ (Negative) A 09/20/24 19:24 Urine Nitrate Negative (Negative) 09/20/24 19:24 Urine Bilirubin Negative (Negative) 09/20/24 19:24 Urine Urobilinogen 1.0 mg/dL (Negative) 09/20/24 19:24 Ur Leukocyte Esterase Trace (Negative) A 09/20/24 19:24 Urine RBC 11-20 /hpf (0-2) H 09/20/24 19:24 Urine WBC 0-5 /hpf (0-5) 09/20/24 19:24 Ur Squamous Epith Cells 0-5 /hpf (0-5) 09/20/24 19:24 Amorphous Sediment Not Reportable 09/20/24 19:24 Urine Bacteria None seen /hpf (NONE) 09/20/24 19:24 Hyaline Casts 0-4 /lpf H 09/20/24 19:24 Urine Opiates Screen Negative ng/mL (Negative) 09/20/24 19:24 Ur Barbiturates Screen Negative ng/mL (Negative) 09/20/24 19:24 Ur Phencyclidine Scrn Negative ng/mL (Negative) 09/20/24 19:24 Ur Amphetamines Screen Negative ng/mL (Negative) 09/20/24 19:24 U Benzodiazepines Scrn Negative ng/mL (Negative) 09/20/24 19:24 Urine Cocaine Screen Negative ng/mL (Negative) 09/20/24 19:24 U Marijuana (THC) Screen Negative ng/mL (Negative) 09/20/24 19:24 Ethyl Alcohol < 10 mg/dL (0-10) 09/20/24 20:31 A&P Assessment and plan 1. Grief reaction: 2. Unspecified atrial fibrillation: 3. Diabetes mellitus: 4. Hypokalemia: 5. Altered mental status: 6. Toenail avulsion: Plan: 79-year-old male with a past medical history of dementia, medical comorbidities as listed above, brought to the hospital today by his family due to altered mental status presenting by way of confusion, disorientation and hallucinations. Patient had a major loss with the passing of his 1-1/2 weeks ago. His symptoms of appear to be more acutely worsened since Saturday (today is Saturday), to the point where and he is unable to carry on his ADLs. He is needing help with showering, medications, frequently redirection, using the bathroom etc. On exam, he does not have any focal motor deficits. He has mild aphasia which may be related to his current confusion. 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 Check B12 folate and RPR. CT head and CTA of the head and neck did not show any acute stroke. Will additionally obtain MRI today. Patient does not have any obvious signs of meningitis at this time other than reporting he has a catch in his neck. Since patient is on adalimumab, would be prudent to rule out viral/cryptococcal/tubercular encephalitis/meningitis as a potential complication leading to his symptoms. Less likely bacterial meningitis Discussed with family that we will be holding Pradaxa today in anticipation of undergoing lumbar puncture tomorrow to further assess for this possibility. To obtain CSF glucose,protein, Gram stain culture, cryptococcal antigen, HSV and VZV PCR, AFB smear and culture from CSF when performed. If MRI and CSF analysis remain unremarkable, his symptoms may potentially all be attributable to grief reaction and insomnia. Will consult psychiatry for further assessment. He has received Zyprexa 5 mg p.o. in the emergency room and Ativan 0.5 mg x 1. We will continue Zyprexa 5 mg p.o. daily once he is admitted and monitor for improvement. Chest x-ray without any consolidation. Urine analysis without signs of UTI. Continue home medications including aspirin, Cardizem 120 mg p.o. daily, finasteride, Namenda, losartan and Flomax. Dvt ppx: holding pradaxa in anticipation of LP, SCDs for now PDMP PDMP Reviewed: Not Reviewed Attestations Medical Necessity Statement*: Less than 2 midnight stay is currently anticipated Coding Level of Care Code Acute Code for [facility] Diagnoses Grief reaction F43.20 Unspecified atrial fibrillation I48.91 Diabetes mellitus E11.9 Hypokalemia E87.6 Altered mental status R41.82 Toenail avulsion S91.209A
--- OUTSIDE RECORDS SUMMARY | 2024-09-21 06:33 | XMS_ITS | Clinical Summary ---
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 Gender Identity Not on file Sexual Orientation Not on file Last Filed Vital Signs Vital Sign Reading Time Taken Comments Blood Pressure 144/80 04/21/2019 10:41 AM SERVICE COORDINATOR Pulse 103 04/21/2019 10:41 AM SERVICE COORDINATOR Temperature 36.3 C (97.4 F) 04/21/2019 10:41 AM SERVICE COORDINATOR Respiratory Rate 20 04/21/2019 10:41 AM SERVICE COORDINATOR Oxygen Saturation 100% 04/21/2019 10:41 AM SERVICE COORDINATOR Inhaled Oxygen Concentration - - Weight 90.8 kg (200 lb 3.2 oz) 04/21/2019 4:00 A M SERVICE COORDINATOR Height 170.2 cm (5' 7 ) 04/17/2019 4:24 PM SERVICE COORDINATOR Body Mass Index 31.36 04/17/2019 4:24 PM SERVICE COORDINATOR Plan of Treatment Health Maintenance Due Date [...] Advance Directives For more information, please contact: [phone] * Full Code (Latest Code Status on File) Date Activated Date Inactivated Comments 04/17/2019 5:11 PM 04/21/2019 3:[address] Vendor Relationship Specialty Start Date End Date Satish Garza MD PCP - General Emergency Medicine 04/17/19
--- OUTSIDE RECORDS SUMMARY | 2024-09-21 06:33 | XMS_ITS | Clinical Summary ---
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 Gender Identity Not on file Sexual Orientation Not on file Last Filed Vital Signs Vital Sign Reading Time Taken Comments Blood Pressure 144/80 04/21/2019 10:41 AM PREPARATION SUPERVISOR FREEZING Pulse 103 04/21/2019 10:41 AM PREPARATION SUPERVISOR FREEZING Temperature 36.3 C (97.4 F) 04/21/2019 10:41 AM PREPARATION SUPERVISOR FREEZING Respiratory Rate 20 04/21/2019 10:41 AM PREPARATION SUPERVISOR FREEZING Oxygen Saturation - - Inhaled Oxygen Concentration - - Weight 90.8 kg (200 lb 3.2 oz) 04/21/2019 4:00 A M PREPARATION SUPERVISOR FREEZING Height 170.2 cm (5' 7 ) 04/17/2019 4:24 PM PREPARATION SUPERVISOR FREEZING Body Mass Index 31.36 04/17/2019 4:24 PM PREPARATION SUPERVISOR FREEZING Plan of Treatment Health Maintenance Due Date Last Done Comments DTAP/TDAP/TD VACCINES (1 - Tdap) 1965 PNEUMOCOCCAL VACCINE 50+ YEARS (1 of 1 - PCV) 08/15/18 97 ZOSTER VACCINE (1 of 2) 1996 RSV VACCINE (60+ or ) (1 - 1-dose 75+ series) 2021 INFLUENZA VACCINE (#1) 2024 01/24/2019 Care Teams Passenger Service Supervisor Relationship Specialty Start Date End Date Satish Garza MD PCP - General Emergency Medicine 04/17/19
--- OUTSIDE RECORDS SUMMARY | 2024-09-21 06:33 | XMS_ITS | Patient Health Record ---
Author Organization [facility] Address [address] [place] [address] Support Name Relationship Address Phone Chito Ford Guarantor Unknown [phone] Allergies Allergen (clinical drug ingredient) Drug/Non Drug [...] Date Status Comme nts Influenza (whole), CPT 50982 Inactive Unknown 03/03/2018 Administered Social History Social History Additional Details Category Social Info Options Details zzMigrated Social History Migrated Social History Smoking Status:Ex-smoker (finding) Plan Of Treatment No Information
[2024-09-21 06:36] LABS: INR 1.56 (0.8-1.2); Prothrombin Time 19.70 SECONDS (12.1-14.9)
--- NOTE | 2024-09-21 06:39 | MR_ITS ---
WS: [id number] MRI BRAIN WITHOUT CONTRAST HISTORY: aletered mental status COMPARISON: CT head 09/20/2024 TECHNIQUE: Diffusion imaging, multiplanar T1, T2 and FLAIR imaging obtained. Normal diffusion imaging. Moderate to severe symmetric volume loss. Advanced small vessel disease. Confluent and scattered T2 and FLAIR signal hyperintensities throughout the white matter. No large territory infarct. Ventricles and extra-axial spaces are moderately dilated on the basis of atrophy. No inferior displacement of the cerebellar tonsils. No cerebellar infarct. Moderate to severe cerebellar atrophy. Dural venous sinuses and [place] demonstrate no abnormality on this unenhanced studies. Paranasal sinuses: Clear. Mastoid air cells: Normal. Calvarium and scalp: Intact. MR/MR head wo con* [id number] IMPRESSION: 1. Normal diffusion imaging. No acute infarct. 2. No hemorrhage. 3. Moderate to severe cerebral and cerebellar atrophy with small vessel change s. 4. No large territory infarct. 5. Ventriculomegaly on the basis of central and peripheral atrophy.
[2024-09-21 06:48] LABS: Vitamin B12 1824 pg/mL (232-1245)
[2024-09-21 08:16] LABS: Rapid Plasma Reagin Syphilis Nonreactive (Nonreactive)
[2024-09-21] MEDS: silver sulfadiazine cream 1% 50 gm 1 APPLIC TOPICAL (10:31)
[2024-09-21 12:44] LABS: Coronavirus 229E,HKU1,NL63,OC4 Not Detected (NOT DETECT); Parainfluenza Virus Type 1 Not Detected (NOT DETECT); Parainfluenza Virus Type 2 Not Detected (NOT DETECT); Parainfluenza Virus Type 3 Not Detected (NOT DETECT); Parainfluenza Virus Type 4 Not Detected (NOT DETECT); SARS-COV-2 Not Detected (NOT DETECT)
[2024-09-21] MEDS: haloperidol inj 5 mg/mL INJ 1 mL 1 MG IM (13:19)
--- NOTE | 2024-09-21 13:41 | PM.CONSULT ---
Providers/Reason For Consult Consulting Physician/Specialty*: Eduardo Wray D.P.M./podiatry Reason for Consult*: Left great toe wound Attending Physician: Tommy Weiner MD Primary Care Provider: Linda Pickard APRN History of Present Illness History of Present Illness Chito Ford is a 79 year old male admitted to the hospital service for altered mental status, hypokalemia and atrial fibrillation, I was consulted for evaluation of left great toe wound, he is status post left great toenail avulsion and phenol matrixectomy performed 09/09/2024. He was noted to have lint from his black sock adhered to the nailbed. Review of Systems General: Reports: 10 or more systems reviewed and unremarkable except in HPI and below Const: Denies: fever(s) or chills Card: Denies: chest pain or palpitations Resp: Denies: productive cough GI: Denies: abdominal pain, nausea or vomiting : Denies: flank pain Musc: Reports: extremity swelling, joint pain, joint stiffness, limited range of motion and deformity Skin/Breast: Reports: nail changes and change in hair; Denies: rash or sores Neuro: Reports: numbness in extremities, sensory changes and difficulty walking Psych: Denies: suicidal ideation [place]/Lymph: Denies: easy bruising Medications/Allergies Home Medications ?Medication ?Instructions ?Recorded ?Confirmed ?Last Taken ?Type adalimumab 40 mg/0.8 mL See Rx Instructions SUBCUT .WEEKLY 05/11/20 09/21/24 09/09/24 08:00 History subcutaneous pen kit aspirin 81 mg tablet,delayed 81 mg PO DAILY 05/11/20 09/21/24 09/20/24 08:00 History release (Adult Aspirin Regimen) dabigatran etexilate 150 mg 150 mg PO BID 05/11/20 09/21/24 09/20/24 08:00 History capsule (Pradaxa) diltiazem HCl 120 mg 120 mg PO DAILY 05/11/20 09/21/24 09/20/24 08:00 History capsule,extended release 24 hr hydrochlorothiazide 25 mg tablet 25 mg PO DAILY 05/11/20 09/21/24 09/20/24 08:00 History losartan 100 mg tablet 100 mg PO DAILY 05/11/20 09/21/24 09/20/24 08:00 History potassium chloride 10 mEq 20 meq PO DAILY 05/11/20 09/21/24 09/20/24 08:00 History capsule,extended release pravastatin 10 mg tablet 10 mg PO QPM 05/11/20 09/21/24 09/19/24 20:00 History finasteride 5 mg tablet 5 mg PO QDAY #90 tabs 10/24/20 09/21/24 09/20/24 08:00 Rx tamsulosin 0.4 mg capsule 0.8 mg PO QPM 01/08/23 09/21/24 09/19/24 20:00 History polyethylene glycol 3350 17 17 g PO DAILY PRN Constipation 03/13/23 09/21/24 04/02/23 History gram/dose oral powder (Miralax) wheelchair #1 ea 03/25/23 09/21/24 Unknown Rx memantine 5 tab PO DAILY 07/30/24 09/21/24 09/20/24 08:00 History meclizine 25 mg tablet 25 mg PO TID PRN Dizziness 07/31/24 09/21/24 09/20/24 08:00 History cholecalciferol (vitamin D3) 25 25 mcg PO DAILY 09/21/24 09/21/24 09/20/24 08:00 History mcg (1,000 unit) tablet cyanocobalamin (vitamin B-12) 1,000 mcg PO DAILY 09/21/24 09/21/24 09/20/24 08:00 History 1,000 mcg tablet fluticasone prop.50 mcg 1 spray intranasal DAILY 09/21/24 09/21/24 09/20/24 08:00 History spray,suspen-sod.chloride 0.9% nasal spray kit folic acid 1 mg tablet 1 mg PO DAILY 09/21/24 09/21/24 09/20/24 08:00 History hydrocortisone 2.5 % topical cream 1 applic topical QID PRN Rash 09/21/24 09/21/24 09/20/24 08:00 History memantine 5 mg tablet 10 mg PO QPM 09/21/24 09/21/24 09/19/24 20:00 History mirabegron 25 mg tablet,extended 25 mg PO DAILY 09/21/24 09/21/24 09/20/24 08:00 History release 24 hr Allergies Allergy/AdvReac Type Severity Reaction Status Date / Time albuterol Allergy unknown Verified 09/14/24 14:08 lisinopril Allergy unknown Verified 09/14/24 14:08 nifedipine Allergy Unknown Verified 09/14/24 14:08 prednisone Allergy unknown Verified 09/14/24 14:08 Current Medications Generic Name Dose Route Start Last Admin Trade Name Freq PRN Reason Stop Dose Admin Aspirin 81 mg 09/21/24 09:00 09/21/24 08:23 Aspirin 81 Mg Ec Tablet PO 81 mg DAILY PATY Administration Diltiazem HCl 120 mg 09/21/24 09:00 09/21/24 08:23 Diltiazem Er (24hr) 120 Mg Capsule PO 120 mg DAILY PATY Administration Finasteride 5 mg 09/21/24 09:00 09/21/24 08:23 Finasteride 5 Mg Tablet PO 5 mg DAILY PATY Administration Haloperidol Lactate 1 mg 09/21/24 03:12 09/21/24 13:19 Haloperidol Inj 5 Mg/Ml Inj 1 Ml IM 1 mg Q4H PRN Administration AGITATION Losartan Potassium 100 mg 09/21/24 09:00 09/21/24 08:24 Losartan 50 Mg Tablet PO 100 mg DAILY PATY Administration Memantine 5 mg 09/21/24 09:00 09/21/24 08:24 Memantine 5 Mg Tablet PO 5 mg DAILY PATY Administration Pantoprazole Sodium 40 mg 09/21/24 09:00 09/21/24 08:[address] 40 Mg Tablet PO 40 mg DAILY PATY Administration Silver Sulfadiazine 1 applic 09/21/24 09:00 09/21/24 10:31 Silver Sulfadiazine Cream 1% 50 Gm TOPICAL 1 applic DAILY PATY Administration PFSH Acute PFSH: Medical History (Updated 09/21/24 @ 06:27 by Ayde Teixeira MD) Dyslipidemia Essential hypertension Anticoagulation adequate with anticoagulant therapy Psoriasis Unspecified atrial fibrillation Essential hypertension COPD (chronic obstructive pulmonary disease) PTSD (post-traumatic stress disorder) Heart disease Diabetes mellitus BPH loc w urin obs/LUTS Elevated PSA Surgical History (Updated 09/22/24 @ 12:20 by Eduardo Wray DPM) Hx of heart artery stent Family History Brother , AT AGE 56 PROSTATE Cancer Sister Cancer 2 SISTERS WITH BREAST CANCER Father , AT AGE 83 HEART ATTACK CAD (coronary artery disease) MOTHER AT AGE 86 UNKNOWN CAUSE Mother , at age 89 No problems noted. Social History Smoking and tobacco/nicotine status: unknown if used tobacco/nicotine Second hand smoke exposure: Yes ( SMOKES) Alcohol intake: never Marital status: Current occupational status: retired Vitals/I&O/Wt Last Vital Signs Temp 97.9 F 09/21/24 07:42 Pulse 78 09/21/24 11:27 Resp 18 09/21/24 11:27 BP 172/81 09/21/24 11:27 Pulse Ox 97 09/21/24 11:27 O2 Del Method Room Air 09/21/24 11:27 09/20/24 09/21/24 09/21/24 22:59 06:59 14:59 Intake Total 340 / 340 240 / 240 Output Total 1000 / 1000 Balance -660 / -660 240 / 240 Weight last 48 hrs Weight 181 lb 3 oz Weight 181 lb 3.2 oz Weight 160 lb Weight 160 lb Physical Exam Narrative: GENERAL: Patient is alert and oriented ?3 and in no acute distress. The following is a focused left lower extremity exam. VASCULAR: Dorsalis pedis palpable. Posterior tibial artery palpable. Capillary refill time less than 3 seconds to the distal hallux bilaterally. Calf is supple and nontender proximally and distally. NEUROLOGICAL: Protective sensation intact to light touch. DERMATOLOGICAL: Well-healing matrixectomy site to the left great toe nailbed with lint from black sock adhered to the nailbed, there is no purulent drainage and no periungual erythema. MUSCULOSKELETAL: No pain to palpation left great toe. Data 09/22/24 03:18 09/22/24 03:18 A&P Assessment and plan 1. S/P matrixectomy of toe: Plan: Status post left great toenail avulsion and phenol matrixectomy performed 09/09/2024. Nailbed is appropriately healing, material adhered to the nailbed was cleansed with saline solution and removed without discomfort to the patient, tolerated well. Dressed with bacitracin and a Band-Aid. Order placed for twice daily application of mupirocin and Band-Aid change to the left great toe during this hospitalization. Left great toe is healing uneventfully and would anticipate in the next 2 to 3 weeks to appreciate complete epithelization. PDMP PDMP Reviewed: Not Reviewed Coding Level of Care Code Acute Code for Chg Fwd Diagnoses S/P matrixectomy of toe Z98.890
[2024-09-21] MEDS: ATORVASTATIN 10 MG TABLET PO (17:02)
--- NOTE | 2024-09-21 19:14 | P.PN_ITS ---
Subjective 2 Subjective: ongoing confusion Vitals/I&O/Wt Last Vital Signs Temp 97.9 F 09/21/24 07:42 Pulse 78 09/21/24 11:27 Resp 18 09/21/24 11:27 BP 172/81 09/21/24 11:27 Pulse Ox 97 09/21/24 11:27 O2 Del Method Room Air 09/21/24 11:27 09/21/24 09/21/24 09/21/24 06:59 14:59 22:59 Intake Total 340 / 340 240 / 240 480 / 720 Output Total 1000 / 1000 Balance -660 / -660 240 / 240 480 / 720 Weight last 48 hrs Weight 82.185 kg Weight 82.191 kg Weight 72.575 kg Weight 72.575 kg Physical Exam 2 Const: COMMON NORMALS: no acute distress, average body habitus and patient oriented x3 HENMT: COMMON NORMALS: normocephalic and atraumatic HEAD & SCALP: n ormocephalic and atraumatic Eye: COMMON NORMALS: Equal, round and reactive pupils present and EOMs intact bilaterally PUPIL: Yes Equal, round and reactive pupils present Resp: COMMON NORMALS: normal respiratory effort and clear to auscultation bilaterally AUSCULTATION: clear to auscultation bilaterally Cardio: COMMON NORMALS: regular rate, regular rhythm, No gallops present (Cardio), No murmurs present (Cardio) and No rub (Cardio) RATE: regular rate RHYTHM: regular rhythm GI: COMMON NORMALS: Normal to inspection, nondistended, normoactive bowel sounds present Extremity: COMMON NORMALS: normal to inspection, full ROM and no pedal edema Neuro: COMMON NORMALS: patient oriented x3 and CN's II-XII intact bilaterally Data 09/20/24 20:31 09/20/24 20:31 A&P Assessment and plan 1. Altered mental status: 2. Grief reaction: Plan: 79 year old male presenting with AMS AMS - history of dementia going on for at least 7 years. Has not seen neurology outpatient. - acute worsening, per daughter, passing of his 1-1/2 weeks ago with recent and no sleep for 4 night. - plan for LP in AM, pradaxa held - cont. memantine - MRI negative - CTA head/neck negative - CT head negative Hypokalemia - replete PRN Afib - pradaxa held for LP in AM - cont. diltiazem HTN - restart home antihypertensives BPH - cont. tamsulosin/finasteride PPx: restart pradaxa after LP Diet: dysphagia, advance as tolerated Disposition - has been living alone at home, likely will need different living arrangement going forward. PDMP PDMP Reviewed: Not Reviewed Attestations 2 Medical Necessity Statement*: AMS, rule out infection as cause Coding Level of Care Code Acute Code for Chg Fwd Diagnoses Altered mental status R41.82 Grief reaction F43.20
[2024-09-22] VITALS (8 sets, daily range): BP systolic 104–154; BP diastolic 64–83; PULSE 60–98; RESP 16–17; TEMP 36.4–36.9; O2SAT 96–98
[2024-09-22 05:37] LABS: Hematocrit 40.7 % (37-53); Hemoglobin 13.10 g/dL (11.27-16.99); Mean Corpuscular HGB Conc 32.2 g/dL (30-55); Mean Corpuscular Hemoglobin 28.9 pg (27-33); Mean Corpuscular Volume 89.8 fl (82-101); Nucleated Red Blood Cells % 0 %; Platelet Count 251 10^3/cmm (157-399); Red Blood Count 4.53 10^6/uL (3.85-5.65); White Blood Count 8.22 10^3/uL (3.29-11.43)
[2024-09-22 06:04] LABS: Alanine Aminotransferase 9 U/L (0-41); Albumin Level 3.7 g/dL (3.5-5.2); Alkaline Phosphatase 74 U/L (40-130); Anion Gap 16.3 (5-19); Aspartate Amino Transferase 13 U/L (0-40); Blood Urea Nitrogen 19 mg/dL (8-23); Calcium 9.6 mg/dL (8.5-10.5); Carbon Dioxide 27 mmol/L (22-29); Chloride 103 mmol/L (98-107); Creatinine Clr Calc Pharmacy 73.3609; Globulin 2.9 g/dL (1.3-4.6); Glucose 117 mg/dL (65-115); Osmolality Calculated 299 mOsm/kg (285-295); Potassium 3.3 mmol/L (3.5-5.1); Sodium 143 mmol/L (136-145); Total Protein 6.6 g/dL (6.6-8.7)
[2024-09-22] MEDS: silver sulfadiazine cream 1% 50 gm 1 APPLIC TOPICAL (08:50)
--- NOTE | 2024-09-22 08:50 | PC.NURSE ---
Per radiology, pt will need to be off of Aspirin x5 days before getting Lumbar Puncture. LP now scheduled for 09/25.
--- NOTE | 2024-09-22 09:22 | PC.CHAP ---
Pastoral Care Encounter/Spiritual Assessment Type of Contact [] Declined rn urology visit [] Patient/Family/Request visit [] Outpatient visit [] Follow-up visit [] Physician referral [] Code/Alert [] Routine visit [] Staff referral [] Actively dying [] Patient sleeping [] Family support [] [] Out of room [] Palliative care [] [x] Receiving care in room [] Pre-surgical visit [] Trauma [] Long length of stay [] ICU visit [] Other: Relational/Emotional Strength [] Patient feels connected with others/family/visitors/staff [] Distress [] Loneliness/isolation [] Abandonment Spirituality of Patient [] Person of Che [] Attends Episcopalian of their Che [] Believes in Prayer [] Reads Bible or Restorationism materials [] There are Spiritual issues to be addressed Telecommunications Officer Interventions [] Prayer [] Active listening [] Non-anxious presence [] Spiritual/emotional support [] Crisis/trauma care [] Spiritual counseling [] Bereavement support [] Provided bereavement packet [] Provided Bible/devotional materials [] Provided toy/stuffed animal, coloring book to patient or family member [] Provided Communion [] Anointing/[place] [] Salvation [] Completed spiritual assessment [] Other: Impact on Illness or Injury [] Angry [] Fearful [] Anxious [] Often cries [] Exhaustion [] Unable to work [] Unable to attend latter day [] Unable to walk/stand [] Unable to read [] Unable to drive [] Unable to eat/drink [] Unable to sleep [] Unable to be with family [] Patient intubated [] Other: Summary Time spent with patient
[2024-09-22] MEDS: dilTIAZem ER (24HR) 120 mg Capsule PO (10:01)
--- NOTE | 2024-09-22 15:41 | P.PN_ITS ---
Subjective 2 Subjective: More alert today. Vitals/I&O/Wt Last Vital Signs Temp 97.6 F 09/22/24 11:08 Pulse 89 09/22/24 11:08 Resp 17 09/22/24 11:08 BP 104/64 09/22/24 11:08 Pulse Ox 97 09/22/24 11:08 O2 Del Method Room Air 09/22/24 11:08 09/22/24 09/22/24 09/22/24 06:59 14:59 22:59 Intake Total 120 / 960 720 / 720 Balance 120 / 960 720 / 720 Weight last 48 hrs Weight 80.739 kg Weight 82.185 kg Weight 82.191 kg Weight 72.575 kg Weight 72.575 kg Physical Exam 2 Const: COMMON NORMALS: no acute distress, average body habitus and alert (oriented to self) HENMT: COMMON NORMALS: normocephalic and atraumatic HEAD & SCALP: n ormocephalic and atraumatic Eye: COMMON NORMALS: Equal, round and reactive pupils present and EOMs intact bilaterally PUPIL: Yes Equal, round and reactive pupils present Resp: COMMON NORMALS: normal respiratory effort and clear to auscultation bilaterally AUSCULTATION: clear to auscultation bilaterally Cardio: COMMON NORMALS: regular rate, regular rhythm, No gallops present (Cardio), No murmurs present (Cardio) and No rub (Cardio) RATE: regular rate RHYTHM: regular rhythm GI: COMMON NORMALS: Soft to palpation, non-tender and no masses PALPATION: Yes Soft to palpation Extremity: COMMON NORMALS: normal to inspection, full ROM and no pedal edema Neuro: COMMON NORMALS: CN's II-XII intact bilaterally S ENSORIUM/ORIENTATION: Yes alert (oriented to self) Data 09/22/24 03:18 09/22/24 03:18 Micro: Microbiology 09/20/24 19:24 Urine Culture - Preliminary Urine,Clean Catch A&P Assessment and plan 1. Altered mental status: 2. Grief reaction: Plan: 79 year old male presenting with AMS AMS Advanced dementia with acute delirium. - history of dementia going on for at least 7 years. Has not seen neurology outpatient. - acute worsening, per daughter, passing of his 1-1/2 weeks ago with recent and no sleep for 4 night. - no concern for infection currently, cancel LP - cont. memantine - MRI negative - CTA head/neck negative - CT head negative - psychiatry consulted for medication optimization Hypokalemia - replete PRN Afib - restart pradaxa - cont. diltiazem HTN - restart home antihypertensives BPH - cont. tamsulosin/finasteride s/p left great toenail avulsion - phenol matrixectomy performed 09/09 - podiatry has seen, healing appropriately. PPx: restart pradaxa Diet: dysphagia, advance as tolerated Disposition - has been living alone at home, likely will need different living arrangement going forward. PDMP PDMP Reviewed: Not Reviewed Attestations 2 Medical Necessity Statement*: advanced dementia with acute delirium Time Spent in Patient Care: 16 - 35 minutes Coding Level of Care Code Acute Code for Chg Fwd Diagnoses Altered mental status R41.82 Grief reaction F43.20
[2024-09-22] MEDS: ATORVASTATIN 10 MG TABLET PO (17:18)
[2024-09-22] MEDS: mupirocin oint 22 gm 1 APPLIC TOPICAL (17:19)
--- NOTE | 2024-09-22 18:26 | W.PM.PSYCONS ---
Providers/Reason for Consult Consulting Physican/Specialty*: Ton/Psychiatry Reason for Consult*: dementia Attending Physician: Tommy Weiner MD Primary Care Provider: Linda Pickard APRN Psych Consult HPI History of Present Illness Chito Ford is a 79 year old male with a reported history of dementia who presented to [facility] with delirium and acute mental status changes. The patient was seen today accompanied by his stepdaughter who was present throughout the whole interview. The patient had admitted to having problems with managing the changes in his life since the passing of his 1-1/2 weeks ago. He had reported that he had struggled with sleep. He states that he has put his jerson in God to help him with managing his next stage in life. He denied any thoughts of hurting himself or others. He had stated that he wanted to be able to live in his own home at this time and stated that he was able to manage his environment including taking his medications. The patient had minimized any depression. He had reported that he had support from the [employer] [facility] with home health 5 out of 7 days a week. He had stated that Saturday was reserved for God to help him in his home. The stepdaughter who lives nearby had stated that the patient had struggled with managing living independently at home and had been losing weight and unable to cook. She reports that he had been increasingly agitated and suspicious of others in the home. She reports that he had been seeing things in his environment that did not appear to be present to her. She reports that he had been resistant to any attempts for someone to be in the home at this time. She had reported that the patient had been diagnosed as having problems with his memory for at least 5 years. Psychiatric history: None reported Substance abuse history: None reported Medical history: As stated Allergies: Albuterol, lisinopril, nifedipine,and prednisone Social history: Patient had reported the of his 1-1/2 weeks ago after many years of marriage. He reports that his children live nearby in the [facility] area. He reports that he had served in the [employer] and was honorably discharged. He reports currently living in his home that he owns by himself. Meds Home Medications and Allergies Home Medications ?Medication ?Instructions ?Recorded ?Confirmed ?Last Taken ?Type adalimumab 40 mg/0.8 mL See Rx Instructions SUBCUT .WEEKLY 05/11/20 09/21/24 09/09/24 08:00 History subcutaneous pen kit aspirin 81 mg tablet,delayed 81 mg PO DAILY 05/11/20 09/21/24 09/20/24 08:00 History release (Adult Aspirin Regimen) dabigatran etexilate 150 mg 150 mg PO BID 05/11/20 09/21/24 09/20/24 08:00 History capsule (Pradaxa) diltiazem HCl 120 mg 120 mg PO DAILY 05/11/20 09/21/24 09/20/24 08:00 History capsule,extended release 24 hr hydrochlorothiazide 25 mg tablet 25 mg PO DAILY 05/11/20 09/21/24 09/20/24 08:00 History losartan 100 mg tablet 100 mg PO DAILY 05/11/20 09/21/24 09/20/24 08:00 History potassium chloride 10 mEq 20 meq PO DAILY 05/11/20 09/21/24 09/20/24 08:00 History capsule,extended release pravastatin 10 mg tablet 10 mg PO QPM 05/11/20 09/21/24 09/19/24 20:00 History finasteride 5 mg tablet 5 mg PO QDAY #90 tabs 10/24/20 09/21/24 09/20/24 08:00 Rx tamsulosin 0.4 mg capsule 0.8 mg PO QPM 01/08/23 09/21/24 09/19/24 20:00 History polyethylene glycol 3350 17 17 g PO DAILY PRN Constipation 03/13/23 09/21/24 04/02/23 History gram/dose oral powder (Miralax) wheelchair #1 ea 03/25/23 09/21/24 Unknown Rx memantine 5 tab PO DAILY 07/30/24 09/21/24 09/20/24 08:00 History meclizine 25 mg tablet 25 mg PO TID PRN Dizziness 07/31/24 09/21/24 09/20/24 08:00 History cholecalciferol (vitamin D3) 25 25 mcg PO DAILY 09/21/24 09/21/24 09/20/24 08:00 History mcg (1,000 unit) tablet cyanocobalamin (vitamin B-12) 1,000 mcg PO DAILY 09/21/24 09/21/24 09/20/24 08:00 History 1,000 mcg tablet fluticasone prop.50 mcg 1 spray intranasal DAILY 09/21/24 09/21/24 09/20/24 08:00 History spray,suspen-sod.chloride 0.9% nasal spray kit folic acid 1 mg tablet 1 mg PO DAILY 09/21/24 09/21/24 09/20/24 08:00 History hydrocortisone 2.5 % topical cream 1 applic topical QID PRN Rash 09/21/24 09/21/24 09/20/24 08:00 History memantine 5 mg tablet 10 mg PO QPM 09/21/24 09/21/24 09/19/24 20:00 History mirabegron 25 mg tablet,extended 25 mg PO DAILY 09/21/24 09/21/24 09/20/24 08:00 History release 24 hr Allergies Allergy/AdvReac Type Severity Reaction Status Date / Time albuterol Allergy unknown Verified 09/14/24 14:08 lisinopril Allergy unknown Verified 09/14/24 14:08 nifedipine Allergy Unknown Verified 09/14/24 14:08 prednisone Allergy unknown Verified 09/14/24 14:08 Current Medications Current Medications Generic Name Dose Route Start Last Admin Trade Name Freq PRN Reason Stop Dose Admin Aspirin 81 mg 09/21/24 09:00 09/22/24 08:47 Aspirin 81 Mg Ec Tablet PO Not Given DAILY PATY Atorvastatin Calcium 10 mg 09/21/24 18:00 09/22/24 17:18 Atorvastatin 10 Mg Tablet PO 10 mg QPM PATY Administration Dabigatran 150 mg 09/22/24 18:00 09/22/24 17:18 Dabigatran 150 Mg Capsule PO 150 mg BID PATY Administration Diltiazem HCl 120 mg 09/21/24 09:00 09/22/24 10:01 Diltiazem Er (24hr) 120 Mg Capsule PO 120 mg DAILY PATY Administration Finasteride 5 mg 09/21/24 09:00 09/22/24 08:48 Finasteride 5 Mg Tablet PO 5 mg DAILY PATY Administration Haloperidol Lactate 1 mg 09/21/24 03:12 09/21/24 13:19 Haloperidol Inj 5 Mg/Ml Inj 1 Ml IM 1 mg Q4H PRN Administration AGITATION Losartan Potassium 100 mg 09/21/24 09:00 09/22/24 08:48 Losartan 50 Mg Tablet PO 100 mg DAILY PATY Administration Memantine 10 mg 09/21/24 18:00 09/22/24 17:18 Memantine 5 Mg Tablet PO 10 mg QPM PATY Administration Memantine 5 mg 09/21/24 09:00 09/22/24 08:49 Memantine 5 Mg Tablet PO 5 mg DAILY PATY Administration Mupirocin 1 applic 09/22/24 18:00 09/22/24 17:19 Mupirocin Oint 22 Gm TOPICAL 1 applic BID PATY Administration Pantoprazole Sodium 40 mg 09/21/24 09:00 09/22/24 08:[address] 40 Mg Tablet PO 40 mg DAILY PATY Administration Silver Sulfadiazine 1 applic 09/21/24 09:00 09/22/24 08:50 Silver Sulfadiazine Cream 1% 50 Gm TOPICAL 1 applic DAILY PATY Administration Tamsulosin HCl 0.8 mg 09/21/24 18:00 09/22/24 17:18 Tamsulosin 0.4 Mg Capsule PO 0.8 mg QPM PATY Administration PFSH NPU PFSH: Medical History (Updated 09/22/24 @ 18:44 by Froylan Camilo MD) Dyslipidemia Essential hypertension Anticoagulation adequate with anticoagulant therapy Psoriasis Unspecified atrial fibrillation Essential hypertension COPD (chronic obstructive pulmonary disease) PTSD (post-traumatic stress disorder) Heart disease Diabetes mellitus BPH loc w urin obs/LUTS Elevated PSA Surgical History (Updated 09/22/24 @ 12:20 by Eduardo Wray DPM) Hx of heart artery stent Family History Brother , AT AGE 56 PROSTATE Cancer Sister Cancer 2 SISTERS WITH BREAST CANCER Father , AT AGE 83 HEART ATTACK CAD (coronary artery disease) MOTHER AT AGE 86 UNKNOWN CAUSE Mother , at age 89 No problems noted. Social History Smoking and tobacco/nicotine status: unknown if used tobacco/nicotine Second hand smoke exposure: Yes ( SMOKES) Alcohol intake: never Marital status: Current occupational status: retired Mental Status Exam MSE Comments: The patient was a casually dressed white male who appeared his stated age with fair eye contact. He had initially appeared in no acute distress but appeared to become increasingly agitated as the interview went on. His speech was productive with some difficulties with word finding appreciated and often imprecise with normal volume and tone. His thought process was circumstantial and meandering. His thought content revealed no suicidal or homicidal ideation. There was no evidence of delusional thinking. There was evidence of paranoia. He did at times appear to be responding to internal stimuli although he had denied it. His mood was described as fine. His affect was somewhat irritable. He was alert and oriented to year, date, day of the week, and month. His registration of 3 words was 3 out of 3. His recall of 3 words after 5 minutes was 0. He had struggled with following two-step commands. His insight is impaired. His judgment is poor. His impulse control appeared limited. Vitals/I&O/Wt Last Vital Signs Temp 98.4 F 09/22/24 15:48 Pulse 68 09/22/24 15:48 Resp 17 09/22/24 15:48 BP 126/68 09/22/24 15:48 Pulse Ox 98 09/22/24 15:48 O2 Del Method Room Air 09/22/24 15:48 09/22/24 09/22/24 09/22/24 06:59 14:59 22:59 Intake Total 120 / 960 720 / 720 Balance 120 / 960 720 / 720 Weight last 48 hrs Weight 80.739 kg Weight 82.185 kg Weight 82.191 kg Weight 72.575 kg Weight 72.575 kg Data NPU 09/22/24 03:18 09/22/24 03:18 Micro: Microbiology 09/20/24 19:24 Urine Culture - Preliminary Urine,Clean Catch Microbiology 09/20/24 19:24 Urine,Clean Catch Urine Culture - Preliminary A&P Assessment and plan 1. Dementia with psychosis: Plan: [age]-year-old male with unspecified dementia who continues to appear to have problems particularly with planning and possible evidence of psychosis. He may benefit from a low-dose antipsychotic to help with management of these problems. He is undoubtedly not able to return to his current home without 24-hour supervision I believe. I would recommend to [facility] evaluation for independent living skills to be completed by OT. 1. recommend low dose of Risperidone .25mg at night routinely to manage agitation. 2. Will follow. PDMP PDMP Reviewed: Not Reviewed Attestations NPU Medical Necessity Statement*: Patient may require geriatric psychiatric hospitalization at this time. Coding Level of Care Code Acute Code for [facility] Fwd Diagnoses Dementia with psychosis F03.92
[2024-09-23] VITALS: BP 128/69; PULSE 64; RESP 17; TEMP 36.7; O2SAT 93
[2024-09-23 04:00] VITALS: BP 144/74; PULSE 77; RESP 16; TEMP 36.8; O2SAT 96
[2024-09-23 05:19] LABS: Hematocrit 41.8 % (37-53); Hemoglobin 13.30 g/dL (11.27-16.99); Mean Corpuscular HGB Conc 31.8 g/dL (30-55); Mean Corpuscular Hemoglobin 28.7 pg (27-33); Mean Corpuscular Volume 90.1 fl (82-101); Nucleated Red Blood Cells % 0 %; Platelet Count 238 10^3/cmm (157-399); Red Blood Count 4.64 10^6/uL (3.85-5.65); White Blood Count 7.31 10^3/uL (3.29-11.43)
[2024-09-23 05:50] LABS: Blood Urea Nitrogen 25 mg/dL (8-23); Calcium 9.8 mg/dL (8.5-10.5); Carbon Dioxide 27 mmol/L (22-29); Chloride 106 mmol/L (98-107); Creatinine Clr Calc Pharmacy 59.5698; Glucose 134 mg/dL (65-115); Osmolality Calculated 302 mOsm/kg (285-295); Sodium 143 mmol/L (136-145)
[2024-09-23 05:57] LABS: Anion Gap 13.9 (5-19); Potassium 3.9 mmol/L (3.5-5.1)
[2024-09-23 06:00] VITALS: PULSE 83
[2024-09-23 07:05] VITALS: BP 120/58; PULSE 77; RESP 16; TEMP 36.6; O2SAT 95
[2024-09-23 07:57] VITALS: BP 120/58
[2024-09-23] MEDS: silver sulfadiazine cream 1% 50 gm 1 APPLIC TOPICAL (07:58)
[2024-09-23] MEDS: mupirocin oint 22 gm 1 APPLIC TOPICAL (07:58)
[2024-09-23] MEDS: dilTIAZem ER (24HR) 120 mg Capsule PO (08:47)
--- NOTE | 2024-09-23 09:09 | P.DS_ITS ---
Discharge Providers Date of Admission: 09/21/24 03:16 Date of Discharge: September 23, 2024 Attending Provider at Admission: Ayde Teixeira MD Attending Provider at Discharge: Tommy Weiner MD Consults: Psychiatry Primary Care Provider: Linda Pickard APRN Diagnoses at Discharge Discharge Diagnosis 1. Dementia with psychosis: Reason for Visit Reason for Visit: MHE Brief History: 79 year old male presenting with AMS Hospital Course Hospital Course AMS Advanced dementia with acute delirium. - history of dementia going on for at least 7 years. Has not seen neurology outpatient. - acute worsening, per daughter, passing of his 1-1/2 weeks ago with recent and no sleep for 4 night. - no concern for infection currently, cancel LP - cont. memantine - MRI negative - CTA head/neck negative - CT head negative - psychiatry consulted: add risperidone 0.25 mg at night for agitation - follow up with psychiatry or neuro-psych as outpatient after discharge. Hypokalemia - improved Afib - restart pradaxa - cont. diltiazem HTN - restart home antihypertensives BPH - cont. tamsulosin/finasteride s/p left great toenail avulsion - phenol matrixectomy performed 09/09 - podiatry has seen, healing appropriately. - will follow up in clinic as OP. PPx: restart pradaxa Diet: dysphagia, advance as tolerated Disposition - has been living alone at home, likely will need different living arrangement going forward. Family made aware and are planning on providing supervision - discharge planning for today, follow up with psych vs. neuro-psych on D/C Physical Exam Const: COMMON NORMALS: no acute distress, average body habitus and alert (oriented to self, much more alert today.) HENMT: COMMON NORMALS: normocephalic and atraumatic HEAD & SCALP: normocephalic and atraumatic Eye: COMMON NORMALS: Equal, round and reactive pupils present and EOMs intact bilaterally PUPIL: Yes Equal, round and reactive pupils present Resp: COMMON NORMALS: normal respiratory effort and clear to auscultation bilaterally AUSCULTATION: clear to auscultation bilaterally Cardio: COMMON NORMALS: regular rate, regular rhythm, No gallops present (Cardio), No murmurs present (Cardio) and No rub (Cardio) RATE: regular rate RHYTHM: regular rhythm GI: COMMON NORMALS: Soft to palpation, non-tender and no masses PALPATION: Yes Soft to palpation Extremity: COMMON NORMALS: normal to inspection, full ROM and no pedal edema Neuro: COMMON NORMALS: CN's II-XII intact bilaterally SENSORIUM/ORIENTATION: Yes alert (oriented to self, much more alert today.) Discharge Data Studies Completed and Pending Completed Studies During Hospitalization Category Date Time Status CT head wo con* [id number] Stat Cat Scan 09/20/24 19:56 Completed CTA head neck [CT angio headneck* [id number]] Stat Cat Scan 09/20/24 21:58 Completed XR chest 1V portable [id number] Stat Exams 09/20/24 19:57 Completed MR head wo con* [id number] Routine MRI 09/21/24 06:39 Completed Pending at discharge Category Date Time Status FL guided lumbarpunc dx* [id number] Routine Exams 09/25/24 08:00 Stop Req Cyto Order Verification Routine Lab 09/21/24 06:41 Ordered Herpes Simplex Virus DNA Routine Lab 09/21/24 06:42 Ordered Miscellaneous Test Routine Lab 09/21/24 06:42 Ordered Urine Culture Stat Lab 09/20/24 19:24 Results Radiology Impressions Head CT 09/20/24 19:56 IMPRESSION: 1. No acute intracranial findings. 2. Moderate cerebral atrophy. Chest X-Ray 09/20/24 19:57 IMPRESSION: Stable appearance of chronic lung markings. No focal consolidation to suggest overlying pneumonia. Head/Neck CTA 09/20/24 21:58 IMPRESSION: No acute large vessel arterial abnormality in the head. IMPRESSION: No acute large vessel arterial abnormality in the neck. REFERENCES: NASCET CRITERIA. The degree of stenosis in the cervical segment of the internal carotid artery is based on NASCET criteria. Normal is no stenosis. Mild is less than 50% stenosis. Moderate is 50-69% stenosis. Severe is 70% to 99% stenosis. Total occlusion is no detectable patent lumen. Head MRI 09/21/24 06:39 IMPRESSION: 1. Normal diffusion imaging. No acute infarct. 2. No hemorrhage. 3. Moderate to severe cerebral and cerebellar atrophy with small vessel changes. 4. No large territory infarct. 5. Ventriculomegaly on the basis of central and peripheral atrophy. Laboratory Results WBC 7.31 10^3/uL (3.29-11.43) 09/23/24 04:27 RBC 4.64 10^6/uL (3.85-5.65) 09/23/24 04:27 Hgb 13.30 g/dL (11.27-16.99) 09/23/24 04:27 Hct 41.8 % (37-53) 09/23/24 04:27 MCV 90.1 fl (82-101) 09/23/24 04:27 MCH 28.7 pg (27-33) 09/23/24 04:27 MCHC 31.8 g/dL (30-55) 09/23/24 04:27 RDW 13.3 % (12.1-15.1) 09/23/24 04:27 Plt Count 238 10^3/cmm (157-399) 09/23/24 04:27 MPV 10.5 fL (7.4-10.4) H 09/23/24 04:27 Neut % (Auto) 58.5 % 09/23/24 04:27 Lymph % (Auto) 25.2 % 09/23/24 04:27 Centre % (Auto) 10.0 % 09/23/24 04:27 Eos % (Auto) 5.9 % 09/23/24 04:27 Baso % (Auto) 0.3 % 09/23/24 04:27 Neut # (Auto) 4.28 10^3/uL (1.8-7.7) 09/23/24 04:27 Lymph # (Auto) 1.8 10^3/uL (0.8-4.8) 09/23/24 04:27 Centre # (Auto) 0.7 10^3/uL (0.2-0.9) 09/23/24 04:27 Eos # (Auto) 0.4 10^3/uL (0.0-0.8) 09/23/24 04:27 Baso # (Auto) 0.0 10^3/uL (0.0-0.1) 09/23/24 04:27 Nucleated RBC % (auto) 0 % 09/23/24 04:27 Nucleated RBCs # 0.0 /100WBC 09/23/24 04:27 PT 19.70 SECONDS (12.1-14.9) H 09/21/24 05:51 INR 1.56 (0.8-1.2) H 09/21/24 05:51 Sodium 143 mmol/L (136-145) 09/23/24 04:27 Potassium 3.9 mmol/L (3.5-5.1) 09/23/24 04:27 Chloride 106 mmol/L (98-107) 09/23/24 04:27 Carbon Dioxide 27 mmol/L (22-29) 09/23/24 04:27 Anion Gap 13.9 (5-19) 09/23/24 04:27 BUN 25 mg/dL (8-23) H 09/23/24 04:27 Creatinine 1.1 mg/dL (0.7-1.2) 09/23/24 04:27 GFR Calculation Not Reportable 09/23/24 04:27 Glucose 134 mg/dL (65-115) H 09/23/24 04:27 Calculated Osmolality 302 mOsm/kg (285-295) H 09/23/24 04:27 Lactic Acid 1.8 mmol/L (0.5-2.2) 09/20/24 20:31 Calcium 9.8 mg/dL (8.5-10.5) 09/23/24 04:27 Total Bilirubin 0.4 mg/dL (0.15-1.2) 09/22/24 03:18 AST 13 U/L (0-40) 09/22/24 03:18 ALT 9 U/L (0-41) 09/22/24 03:18 Alkaline Phosphatase 74 U/L (40-130) 09/22/24 03:18 Ammonia 53 umol/L (16-60) 09/20/24 20:31 Total Protein 6.6 g/dL (6.6-8.7) 09/22/24 03:18 Albumin 3.7 g/dL (3.5-5.2) 09/22/24 03:18 Globulin 2.9 g/dL (1.3-4.6) 09/22/24 03:18 Vitamin B12 1824 pg/mL (232-1245) H 09/21/24 05:51 Folate > 20.0 ng/mL (4.5-32.2) 09/21/24 05:51 TSH 3.84 uIU/mL (0.27-4.20) 09/20/24 20:31 Urine Color Yellow (Yellow) 09/20/24 19:24 Urine Appearance Clear (CLEAR) 09/20/24 19:24 Urine pH 5.5 (5-7) 09/20/24 19:24 Ur Specific [place] 1.008 (1.005-1.030) 09/20/24 19:24 Urine Protein Negative (Negative) 09/20/24 19:24 Urine Glucose (UA) Negative (Normal) 09/20/24 19:24 Urine Ketones Negative (Negative) 09/20/24 19:24 Urine Blood 3+ (Negative) A 09/20/24 19:24 Urine Nitrate Negative (Negative) 09/20/24 19:24 Urine Bilirubin Negative (Negative) 09/20/24 19:24 Urine Urobilinogen 1.0 mg/dL (Negative) 09/20/24 19:24 Ur Leukocyte Esterase Trace (Negative) A 09/20/24 19:24 Urine RBC 11-20 /hpf (0-2) H 09/20/24 19:24 Urine WBC 0-5 /hpf (0-5) 09/20/24 19:24 Ur Squamous Epith Cells 0-5 /hpf (0-5) 09/20/24 19:24 Amorphous Sediment Not Reportable 09/20/24 19:24 Urine Bacteria None seen /hpf (NONE) 09/20/24 19:24 Hyaline Casts 0-4 /lpf H 09/20/24 19:24 Urine Opiates Screen Negative ng/mL (Negative) 09/20/24 19:24 Ur Barbiturates Screen Negative ng/mL (Negative) 09/20/24 19:24 Ur Phencyclidine Scrn Negative ng/mL (Negative) 09/20/24 19:24 Ur Amphetamines Screen Negative ng/mL (Negative) 09/20/24 19:24 U Benzodiazepines Scrn Negative ng/mL (Negative) 09/20/24 19:24 Urine Cocaine Screen Negative ng/mL (Negative) 09/20/24 19:24 U Marijuana (THC) Screen Negative ng/mL (Negative) 09/20/24 19:24 Ethyl Alcohol < 10 mg/dL (0-10) 09/20/24 20:31 RPR Nonreactive (Nonreactive) 09/21/24 05:51 RPR Titer/FTA Cancelled 09/21/24 05:51 RPR w/Rflx to Titer Cancelled 09/21/24 05:51 Adenovirus (PCR) Not detected (NOT DETECT) 09/21/24 08:51 C. pneumoniae DNA (PCR) Not detected (NOT DETECT) 09/21/24 08:51 Coronavirus 229E (PCR) Not detected (NOT DETECT) 09/21/24 08:51 Human Metapneumovir PCR Not detected (NOT DETECT) 09/21/24 08:51 Influenza A (H1) PCR Not detected (NOT DETECT) 09/21/24 08:51 Influ A (H1/09) PCR Not detected (NOT DETECT) 09/21/24 08:51 Influenza A (H3) PCR Not detected (NOT DETECT) 09/21/24 08:51 Influenza Type A (PCR) Not detected (NOT DETECT) 09/21/24 08:51 Influenza Type B (PCR) Not detected (NOT DETECT) 09/21/24 08:51 M. pneumoniae (PCR) Not detected (NOT DETECT) 09/21/24 08:51 Parainfluenza 1 (PCR) Not detected (NOT DETECT) 09/21/24 08:51 Parainfluenza 2 (PCR) Not detected (NOT DETECT) 09/21/24 08:51 Parainfluenza 3 (PCR) Not detected (NOT DETECT) 09/21/24 08:51 Parainfluenza 4 (PCR) Not detected (NOT DETECT) 09/21/24 08:51 RSV Type A (PCR) Not detected (NOT DETECT) 09/21/24 08:51 RSV Type B (PCR) Not detected (NOT DETECT) 09/21/24 08:51 Entero/Rhino (PCR) Not detected (NOT DETECT) 09/21/24 08:51 SARS-CoV-2 (PCR) Not detected (NOT DETECT) 09/21/24 08:51 Vitals Last Vital Signs Temp 97.9 F 09/23/24 07:05 Pulse 77 09/23/24 07:05 Resp 16 09/23/24 07:05 BP 120/58 09/23/24 07:57 Pulse Ox 95 09/23/24 07:05 O2 Del Method Room Air 09/23/24 07:05 Discharge Plan Discharge Patient Disposition: Home Condition: Stable Prescriptions: New risperidone 0.25 mg Tablet 0.25 mg PO 1999 Qty: 30 2RF Continued losartan 100 mg tablet 100 mg PO DAILY hydrochlorothiazide 25 mg tablet 25 mg PO DAILY potassium chloride 10 mEq capsule, extended release 20 meq PO DAILY diltiazem HCl 120 mg capsule,extended release 24hr 120 mg PO DAILY pravastatin 10 mg tablet 10 mg PO QPM Pradaxa 150 mg capsule 150 mg PO BID adalimumab 40 mg/0.8 mL pen injector kit See Rx Instructions SUBCUT .WEEKLY Rx Instructions: inject one - 40 mg/0.8 mL pen every week SUBCUT .WEEKLY; aspirin [Adult Aspirin Regimen] 81 mg tablet,delayed release (DR/EC) 81 mg PO DAILY finasteride 5 mg tablet 5 mg PO QDAY Qty: 90 3RF (DME) wheelchair See Rx Instructions .Route .MEDSUPPLY Qty: 1 0RF Rx Instructions: As directed to HOME polyethylene glycol 3350 [Miralax] 17 gram/dose powder 17 g PO DAILY PRN (Reason: Constipation) tamsulosin 0.4 mg capsule 0.8 mg PO QPM cyanocobalamin (vitamin B-12) 1,000 mcg Tablet 1,000 mcg PO DAILY folic acid 1 mg Tablet 1 mg PO DAILY hydrocortisone 2.5 % Cream 1 applic TOPICAL QID PRN (Reason: Rash) memantine 5 mg Tablet 10 mg PO QPM cholecalciferol (vitamin D3) 25 mcg (1,000 unit) Tablet 25 mcg PO DAILY mirabegron 25 mg Tablet Extended Release 24 Hr 25 mg PO DAILY fluticasone prp-sod.chl,bicarb 50 mcg- 0.9 % Kit,[place] Suspension And [place] 1 spray INTRANASAL DAILY memantine tablet 5 tab PO DAILY meclizine 25 mg Tablet 25 mg PO TID PRN (Reason: Dizziness) Discharge Order = DC NOW: Discharge Order (Routine); Ordered 09/23/24 Ordered By: Tommy Weiner Referrals: Linda Pickard APRN [Primary Care Provider, Family Practice] - 10/01/24 10:30 am Discharge Diet: Usual diet Discharge Activity: Resume usual activity Patient Instructions: Risperidone (By mouth), Altered Mental Status (ED), Opioid Safety, Patient Portal & [place] Instructions Discharge Attestations Time Spent in Discharge Care*: greater than 30 min Quality Metrics Clinical Quality Measures [ No reported AMI, CVA or VTE this stay] Coding Level of Care Code Acute Code for [facility] Fwd Diagnoses Dementia with psychosis F03.92
--- NOTE | 2024-09-23 10:19 | PC.OT ---
ATTEMPTED SKILLED OT SESSION PER PATIENT WITH GRANDDAUGHTER NO NEEDS AT THIS TIME.
[2024-09-23 10:44] VITALS: BP 120/58; PULSE 77; RESP 16; TEMP 36.6; O2SAT 95
== END 2024-09-23 10:45 | disposition home or self-care (01) ==
LOC: ER 09-21 01:05 → MEDSURG 09-21 01:31
PROVIDERS: Admitting Provider Student in an Organized Health Care Education/Training Program; Emergency Provider Physician Assistant; PCP Nurse Practitioner Family; Visit Provider Internal Medicine
DX: R41.82 Altered mental status, unspecified (principal); F03.92 Unspecified dementia, unspecified severity, with psychotic disturbance; Z79.82 Long term (current) use of aspirin; E87.6 Hypokalemia; I48.91 Unspecified atrial fibrillation; F43.20 Adjustment disorder, unspecified; Z98.890 Other specified postprocedural states; J44.9 Chronic obstructive pulmonary disease, unspecified; Z79.01 Long term (current) use of anticoagulants; E78.5 Hyperlipidemia, unspecified; I10 Essential (primary) hypertension; F43.10 Post-traumatic stress disorder, unspecified; E11.9 Type 2 diabetes mellitus without complications
CPT/HCPCS: 36415; 70450; 70496; 70498; 70551; 71045; 80048; 80053; 80306; 80307; 81001; 82140; 82607; 82746; 83605; 84443; 85025; 85610; 86592; 87077; 87086; 87186; 87486; 87581; 87633; 92523; 92610; 93005; 96372; 96374; 97116; 97161; 97166; 97535; 99285; G0378; J1630; J2060; J9999

== ENCOUNTER 2025-02-22 13:56 | Emergency (ER) | payer OTHER, SELFPAY ==
[2025-02-22 14:02] VITALS: BP 176/70; PULSE 61; TEMP 36.3; O2SAT 97
--- OUTSIDE RECORDS SUMMARY | 2025-02-22 14:18 | XMS_ITS | Patient Health Record ---
Author Organization [facility] Address [address] [place] [address] Support Name Relationship Address Phone Chito Ford Guarantor Unknown [phone] Allergies Allergen (clinical drug ingredient) Drug/Non Drug [...] Date Status Comme nts Influenza (whole), CPT 42090 Inactive Unknown 03/03/2018 Administered Social History Social History Additional Details Category Social Info Options Details zzMigrated Social History Migrated Social History Smoking Status:Ex-smoker (finding) Plan Of Treatment No Information
--- OUTSIDE RECORDS SUMMARY | 2025-02-22 14:18 | XMS_ITS | Clinical Summary ---
Author Organization [facility] Address [address] 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 Temperature 36.3 C (97.4 F) 04/21/2019 10:41 AM [employer] PLANTER 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 Respiratory Rate 20 04/21/2019 10:41 AM [employer] PLANTER 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 Oxygen Saturation - - Inhaled Oxygen Concentration - - Weight 90.8 kg (200 lb 3.2 oz) 04/21/2019 4:00 A M [employer] 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 Height 170.2 cm (5' 7 ) 04/17/2019 4:24 PM [employer] 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
--- OUTSIDE RECORDS SUMMARY | 2025-02-22 14:19 | XMS_ITS | Clinical Summary ---
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 Gender Identity Not on file Sexual Orientation Not on file Last Filed Vital Signs Vital Sign Reading Time Taken Comments Blood Pressure 144/80 04/21/2019 10:41 AM CENTRAL STERILE TECHNICIAN Pulse 103 04/21/2019 10:41 AM CENTRAL STERILE TECHNICIAN Temperature 36.3 C (97.4 F) 04/21/2019 10:41 AM CENTRAL STERILE TECHNICIAN Respiratory Rate 20 04/21/2019 10:41 AM CENTRAL STERILE TECHNICIAN Oxygen Saturation 100% 04/21/2019 10:41 AM CENTRAL STERILE TECHNICIAN Inhaled Oxygen Concentration - - Weight 90.8 kg (200 lb 3.2 oz) 04/21/2019 4:00 A M CENTRAL STERILE TECHNICIAN Height 170.2 cm (5' 7 ) 04/17/2019 4:24 PM CENTRAL STERILE TECHNICIAN Body Mass Index 31.36 04/17/2019 4:24 PM CENTRAL STERILE TECHNICIAN Plan of Treatment Health Maintenance Due [...] Advance Directives For more information, please contact: [phone] * Full Code (Latest Code Status on File) Date Activated Date Inactivated Comments 04/17/2019 5:11 PM 04/21/2019 3:20 PM Care Teams Casing Puller Relationship Specialty Start Date End Date Satish Garza MD PCP - General Emergency Medicine 04/17/19
--- NOTE | 2025-02-22 14:41 | ECG_ITS ---
[facility] Test Date: 2025-02-22 Pat Name: Chito Ford Department: Room: Gender: Male Sexer: : 1945 Requested By: Hipolito Kang Order Number: [id number] Noel MD: Yosi Estrada M.D. Measurements Intervals [place] Rate: 65 P: 0 NC: 0 QRS: 85 QRSD: 153 T: 34 QT: 470 QTc: 489 Interpretive Statements ATRIAL FIBRILLATION RIGHT BUNDLE BRANCH BLOCK [120+ ms QRS DURATION, UPRIGHT V1, 40+ ms S IN I/aVL/V4/V5/V6] INTERPRETATION BASED ON A DEFAULT AGE OF 40 YEARS Compared to ECG 09/20/2024 20:41:15 Right bundle-branch block now present Ventricular premature complex(es) no longer present Electronically Signed On 02-25-2025 16:26:56 COMPUTER APPLICATION DEVELOPER by Yosi Estrada M.D. [email or web address] [id number]
--- NOTE | 2025-02-22 14:41 | XR_ITS ---
WS: [id number] Portable AP upright chest, 02/22/2025 Clinical Data: dyspnea/cough Comparison: Portable chest, 09/20/2024 Findings: Chronic interstitial markings are seen throughout the lungs unchanged. No nodules, masses or effusions are seen. The heart is normal. The pulmonary vascularity is not increased. No pneumonia or pneumothorax is seen. The aortic arch and descending thoracic aorta show calcification and tortuosity. There are monitor leads on the chest wall. XR/XR chest 1V portable [id number] Impression: 1. Chronic interstitial markings throughout the lungs. 2. Atherosclerosis.
[2025-02-22 14:51] LABS: Glucose Urine UA Negative (Normal); Nitrate Urine Negative (Negative); Specific Gravity, Urine 1.018 (1.005-1.030)
[2025-02-22 14:54] LABS: Hematocrit 43.8 % (37-53); Hemoglobin 13.70 g/dL (11.27-16.99); Mean Corpuscular HGB Conc 31.3 g/dL (30-55); Mean Corpuscular Hemoglobin 28.1 pg (27-33); Mean Corpuscular Volume 89.8 fl (82-101); Nucleated Red Blood Cells % 0 %; Platelet Count 230 10^3/cmm (157-399); Red Blood Count 4.88 10^6/uL (3.85-5.65); White Blood Count 10.00 10^3/uL (3.29-11.43)
--- NOTE | 2025-02-22 14:55 | W.ED.SOB ---
HPI - SOB/Dyspnea General: Chief Complaint: Shortness of Breath/Dyspnea Stated Complaint: cp, confusion [facility] Time Seen by Provider: 02/22/25 14:36 History of Present Illness: HPI Narrative: 79-year-old male presents emergency room complaining of some chest discomfort. Patient has known history of coronary disease. This morning it just comes that woke him up from sleep but since then spontaneously resolved. He has had a little bit of a headache as well. He has no focal neurologic deficits. He has some Alzheimer's and feels like he has been more confused. He states he was diagnosed couple months ago. Associated symptoms: Deny abdominal pain, chest pain or fever(s) Related Data Home Medications ?Medication ?Instructions ?Recorded ?Confirmed adalimumab 40 mg/0.8 mL See Rx Instructions SUBCUT .WEEKLY 05/11/20 09/21/24 subcutaneous pen kit aspirin 81 mg tablet,delayed 81 mg PO DAILY 05/11/20 09/21/24 release (Adult Aspirin Regimen) dabigatran etexilate 150 mg 150 mg PO BID 05/11/20 09/21/24 capsule (Pradaxa) diltiazem HCl 120 mg 120 mg PO DAILY 05/11/20 09/21/24 capsule,extended release 24 hr hydrochlorothiazide 25 mg tablet 25 mg PO DAILY 05/11/20 09/21/24 losartan 100 mg tablet 100 mg PO DAILY 05/11/20 09/21/24 potassium chloride 10 mEq 20 meq PO DAILY 05/11/20 09/21/24 capsule,extended release pravastatin 10 mg tablet 10 mg PO QPM 05/11/20 09/21/24 tamsulosin 0.4 mg capsule 0.8 mg PO QPM 01/08/23 09/21/24 polyethylene glycol 3350 17 17 g PO DAILY PRN Constipation 03/13/23 09/21/24 gram/dose oral powder (Miralax) memantine 5 tab PO DAILY 07/30/24 09/21/24 meclizine 25 mg tablet 25 mg PO TID PRN Dizziness 07/31/24 09/21/24 cholecalciferol (vitamin D3) 25 25 mcg PO DAILY 09/21/24 09/21/24 mcg (1,000 unit) tablet cyanocobalamin (vitamin B-12) 1,000 mcg PO DAILY 09/21/24 09/21/24 1,000 mcg tablet fluticasone prop.50 mcg 1 spray intranasal DAILY 09/21/24 09/21/24 spray,suspen-sod.chloride 0.9% nasal spray kit folic acid 1 mg tablet 1 mg PO DAILY 09/21/24 09/21/24 hydrocortisone 2.5 % topical cream 1 applic topical QID PRN Rash 09/21/24 09/21/24 memantine 5 mg tablet 10 mg PO QPM 09/21/24 09/21/24 mirabegron 25 mg tablet,extended 25 mg PO DAILY 09/21/24 09/21/24 release 24 hr Previous Rx's ?Medication ?Instructions ?Recorded finasteride 5 mg tablet 5 mg PO QDAY #90 tabs 10/24/20 wheelchair #1 ea 03/25/23 risperidone 0.25 mg tablet 0.25 mg PO 2000 #30 tabs 09/23/24 isosorbide mononitrate 30 mg 30 mg PO DAILY #30 tabs 02/22/25 tablet,extended release 24 hr Allergies Allergy/AdvReac Type Severity Reaction Status Date / Time albuterol Allergy unknown Verified 02/22/25 14:16 lisinopril Allergy unknown Verified 02/22/25 14:16 nifedipine Allergy Unknown Verified 02/22/25 14:16 prednisone Allergy unknown Verified 02/22/25 14:16 Review of Systems Const: Denies: fever(s) or chills Card: Denies: chest pain Resp: Denies: dyspnea GI: Denies: abdominal pain : Denies: dysuria, urinary frequency or urinary urgency Musc: Denies: neck pain or back pain Skin/Breast: Denies: rash PFSH ED PFSH: Medical History Dyslipidemia Essential hypertension Anticoagulation adequate with anticoagulant therapy Psoriasis Unspecified atrial fibrillation Essential hypertension COPD (chronic obstructive pulmonary disease) PTSD (post-traumatic stress disorder) Heart disease Diabetes mellitus BPH loc w urin obs/LUTS Elevated PSA Surgical History Hx of heart artery stent Family History Brother , AT AGE 56 PROSTATE Cancer Sister Cancer 2 SISTERS WITH BREAST CANCER Father , AT AGE 83 HEART ATTACK CAD (coronary artery disease) MOTHER AT AGE 86 UNKNOWN CAUSE Mother , at age 89 No problems noted. Social History Smoking and tobacco/nicotine status: unknown if used tobacco/nicotine Second hand smoke exposure: Yes ( SMOKES) Alcohol intake: never Marital status: Current occupational status: retired Physical Exam Const: GENERAL APPEARANCE: cooperative ORIENTATION/CONSCIOUSNESS: Yes awake, Yes oriented to person, Yes oriented to place and Yes oriented to time HENMT: COMMON NORMALS: normocephalic, atraumatic and hearing grossly normal bilaterally HEAD & SCALP: normocephalic and atraumatic Resp: COMMON NORMALS: normal respiratory effort, No retractions, No use of accessory muscles and clear to auscultation bilaterally AUSCULTATION: clear to auscultation bilaterally Cardio: COMMON NORMALS: regular rate, regular rhythm and No murmurs present (Cardio) RATE: regular rate RHYTHM: regular rhythm GI: COMMON NORMALS: Soft to palpation and No hepatosplenomegaly present AUSCULTATION: Yes normoactive bowel sounds PALPATION: Yes Soft to palpation, No Tenderness to palpation present (GI), No Guarding due to palpation present (GI) and Yes No hepatosplenomegaly present Extremity: COMMON NORMALS: normal to inspection, capillary refill normal, no clubbing, cyanosis or edema, no calf tenderness and no pedal edema Neuro: SENSORIUM/ORIENTATION: Yes oriented to person, Yes oriented to place and Yes oriented to time Skin: COMMON NORMALS: no rashes or lesions noted GENERAL SKIN EXAM: no rashes or lesions noted Course Vital Signs: Vital signs: Vital Signs Temperature 97.4 F L 02/22/25 14:02 Pulse Rate 62 02/22/25 17:18 Blood Pressure 134/76 02/22/25 17:18 Pulse Oximetry 99 02/22/25 17:18 Oxygen Delivery Me thod Room Air 02/22/25 15:31 MDM - SOB/Dyspnea Medical Decision Making Medical decision making Social determinants: Mild cognitive deficits, age I reviewed the patient's medical record. I reviewed the patient's current home meds. Alternate historians: None Differential diagnosis: Acute coronary syndrome, congestive heart failure, Alzheimer's dementia, headache Lab Review: Labs reviewed as found in the chart. CBC normal chemistry panel unremarkable delta troponin -1 BNP 1852 UA shows 10-20 red blood cells per high-power field negative nitrates negative leukocyte esterase Patient has had no further chest pain he does have some mild dementia. He did have some red and white blood cells in his urine however he has no symptoms at this time Hold off for treatment until culture is resulted. EKGs do not show any acute changes. Discharge patient home continue aspirin daily start isosorbide mononitrate 30 mg daily and follow-up with cardiology. Medical Records I reviewed the patient's medical records. Lab Data I reviewed the patient's lab results. 02/22/25 14:47 02/22/25 14:47 Labs/Radiology: Radiology Impressions Chest X-Ray 02/22/25 14:41 Impression: 1. Chronic interstitial markings throughout the lungs. 2. Atherosclerosis. Laboratory Results WBC 10.00 10^3/uL (3.29-11.43) 02/22/25 14:47 RBC 4.88 10^6/uL (3.85-5.65) 02/22/25 14:47 Hgb 13.70 g/dL (11.27-16.99) 02/22/25 14:47 Hct 43.8 % (37-53) 02/22/25 14:47 MCV 89.8 fl (82-101) 02/22/25 14:47 MCH 28.1 pg (27-33) 02/22/25 14:47 MCHC 31.3 g/dL (30-55) 02/22/25 14:47 RDW 13.4 % (12.1-15.1) 02/22/25 14:47 Plt Count 230 10^3/cmm (157-399) 02/22/25 14:47 MPV 9.2 fL (7.4-10.4) 02/22/25 14:47 Neut % (Auto) 76.3 % 02/22/25 14:47 Lymph % (Auto) 12.5 % 02/22/25 14:47 [place] % (Auto) 8.9 % 02/22/25 14:47 Eos % (Auto) 1.6 % 02/22/25 14:47 Baso % (Auto) 0.3 % 02/22/25 14:47 Neut # (Auto) 7.63 10^3/uL (1.8-7.7) 02/22/25 14:47 Lymph # (Auto) 1.3 10^3/uL (0.8-4.8) 02/22/25 14:47 [place] # (Auto) 0.9 10^3/uL (0.2-0.9) 02/22/25 14:47 Eos # (Auto) 0.2 10^3/uL (0.0-0.8) 02/22/25 14:47 Baso # (Auto) 0.0 10^3/uL (0.0-0.1) 02/22/25 14:47 Nucleated RBC % (auto) 0 % 02/22/25 14:47 Nucleated RBCs # 0.0 /100WBC 02/22/25 14:47 Sodium 140 mmol/L (136-145) 02/22/25 14:47 Potassium 4.2 mmol/L (3.5-5.1) 02/22/25 14:47 Chloride 103 mmol/L (98-107) 02/22/25 14:47 Carbon Dioxide 28 mmol/L (22-29) 02/22/25 14:47 Anion Gap 13.2 (5-19) 02/22/25 14:47 BUN 23 mg/dL (8-23) 02/22/25 14:47 Creatinine 1.1 mg/dL (0.7-1.2) 02/22/25 14:47 GFR Calculation Not Reportable 02/22/25 14:47 Glucose 128 mg/dL (65-115) H 02/22/25 14:47 Calculated Osmolality 295 mOsm/kg (285-295) 02/22/25 14:47 Calcium 9.6 mg/dL (8.5-10.5) 02/22/25 14:47 Total Bilirubin 0.4 mg/dL (0.15-1.2) 02/22/25 14:47 AST 15 U/L (0-40) 02/22/25 14:47 ALT 13 U/L (0-41) 02/22/25 14:47 Alkaline Phosphatase 92 U/L (40-130) 02/22/25 14:47 Troponin T Baseline 9 ng/L (0-15) 02/22/25 14:47 Troponin T 60 Minute 7.95 ng/L (0-15) 02/22/25 15:38 Delta Troponin T -1.05 ABS# (0-10) L 02/22/25 15:38 NT-Pro-B Natriuret Pep 1852 pg/mL (0-450) H 02/22/25 14:47 Total Protein 6.9 g/dL (6.6-8.7) 02/22/25 14:47 Albumin 4.2 g/dL (3.5-5.2) 02/22/25 14:47 Globulin 2.7 g/dL (1.3-4.6) 02/22/25 14:47 Urine Color Yellow (Yellow) 02/22/25 14:42 Urine Appearance Clear (CLEAR) 02/22/25 14:42 Urine pH 5.5 (5-7) 02/22/25 14:42 Ur Specific [place] 1.018 (1.005-1.030) 02/22/25 14:42 Urine Protein Negative (Negative) 02/22/25 14:42 Urine Glucose (UA) Negative (Normal) 02/22/25 14:42 Urine Ketones Trace (Negative) 02/22/25 14:42 Urine Blood 2+ (Negative) A 02/22/25 14:42 Urine Nitrate Negative (Negative) 02/22/25 14:42 Urine Bilirubin Negative (Negative) 02/22/25 14:42 Urine Urobilinogen 1.0 mg/dL (Negative) 02/22/25 14:42 Ur Leukocyte Esterase Trace (Negative) A 02/22/25 14:42 Urine RBC 11-20 /hpf (0-2) H 02/22/25 14:42 Urine WBC 6-10 /hpf (0-5) 02/22/25 14:42 Ur Squamous Epith Cells 0-5 /hpf (0-5) 02/22/25 14:42 Amorphous Sediment Not Reportable 02/22/25 14:42 Urine Bacteria None seen /hpf (NONE) 02/22/25 14:42 Hyaline Casts 0.81 /lpf 02/22/25 14:42 All radiology interpretation(s) finalized by discharge ED provider radiology interpretation(s): Chest x-ray read by myself. No cardiomegaly no effusions or infiltrates, no increased pulmonary vasculature. Normal osseous structures no widening of the mediastinum. Chronic interstitial changes with mild hyperinflation no significant change from previous EKG EKG Data EKG 1: I personally reviewed and interpreted this EKG as follows: Interpretation: EKG 02/23/2000 2514 10 PM atrial fibrillation with a right bundle branch block rate of 65 QTc [address] elevation. Compared to EKG 09/20/2024 no significant change EKG 2: I personally reviewed and interpreted this EKG as follows: Interpretation: EKG 02/22/2025 1554 atrial fibrillation rate of 67 QTc is 498. Right bundle branch block noted. No acute ST elevation noted. Compared to EKG done earlier today same day Discharge Plan Discharge Patient Disposition: Home Clinical Impression: Chest pain, Dementia Condition: Stable Prescriptions: New isosorbide mononitrate 30 mg tablet extended release 24 hr 30 mg PO DAILY Qty: 30 0RF No Action losartan 100 mg tablet 100 mg PO DAILY hydrochlorothiazide 25 mg tablet 25 mg PO DAILY potassium chloride 10 mEq capsule, extended release 20 meq PO DAILY diltiazem HCl 120 mg capsule,extended release 24hr 120 mg PO DAILY pravastatin 10 mg tablet 10 mg PO QPM Pradaxa 150 mg capsule 150 mg PO BID adalimumab 40 mg/0.8 mL pen injector kit See Rx Instructions SUBCUT .WEEKLY Rx Instructions: inject one - 40 mg/0.8 mL pen every week SUBCUT .WEEKLY; aspirin [Adult Aspirin Regimen] 81 mg tablet,delayed release (DR/EC) 81 mg PO DAILY finasteride 5 mg tablet 5 mg PO QDAY Qty: 90 3RF (DME) wheelchair See Rx Instructions .Route .MEDSUPPLY Qty: 1 0RF Rx Instructions: As directed to HOME polyethylene glycol 3350 [Miralax] 17 gram/dose powder 17 g PO DAILY PRN (Reason: Constipation) tamsulosin 0.4 mg capsule 0.8 mg PO QPM cyanocobalamin (vitamin B-12) 1,000 mcg Tablet 1,000 mcg PO DAILY folic acid 1 mg Tablet 1 mg PO DAILY hydrocortisone 2.5 % Cream 1 applic TOPICAL QID PRN (Reason: Rash) memantine 5 mg Tablet 10 mg PO QPM cholecalciferol (vitamin D3) 25 mcg (1,000 unit) Tablet 25 mcg PO DAILY mirabegron 25 mg Tablet Extended Release 24 Hr 25 mg PO DAILY fluticasone prp-sod.chl,bicarb 50 mcg- 0.9 % Kit,[place]incoln Suspension And [place] 1 spray INTRANASAL DAILY risperidone 0.25 mg Tablet 0.25 mg PO 1999 Qty: 30 2RF memantine tablet 5 tab PO DAILY meclizine 25 mg Tablet 25 mg PO TID PRN (Reason: Dizziness) Discharge Orders: Discharge ED (Routine); Ordered 02/22/25 Ordered By: Hipolito Fernández Referrals: Linda Pickard APRN [Primary Care Provider, Family Practice] Discharge Diet: Usual diet Discharge Activity: Increase activity as tolerated Patient Instructions: Opioid Safety, Pain Management, Patient Portal & [place] Instructions Activity Restrictions/Additional Instructions: Thank you for choosing [facility] for your healthcare needs today. It is very important that you follow up as instructed or that you return to the Emergency Department should you have concerns or if your condition changes or worsens in any way. Emergency department visits are focused on emergent conditions, in some cases you may require further evaluation on an outpatient basis. You were seen in the emergency room with complaint of chest discomfort your cardiac enzymes and EKG did not show any acute changes. You also mention some difficulty with your memory although you reported improved while you were here. You did previously been diagnosed with dementia. Recommend that you follow-up with your primary care doctor regarding her dementia issues. As for the chest pain will make an appointment for you with the cardiology clinic. Return to the emergency room if you have any worsening of symptoms. We also recommend that you start isosorbide mononitrate 30 mg 1 daily (Please note that included in your discharge packet is information concerning opioid safety and pain management. This information is given to all patients were discharged from the ER regardless of their discharge diagnosis or the medicines they usually take or are prescribed.) Print Language: Slovenian Coding Level of Care Code ED Piledriver Carpenter for Mary Ball
[2025-02-22 14:56] LABS: Add Urine Microscopic? YES
[2025-02-22 15:14] LABS: Troponin(5th) Baseline 9 ng/L (0-15)
[2025-02-22 15:31] VITALS: BP 134/53; PULSE 68; O2SAT 98
[2025-02-22 15:36] LABS: Alanine Aminotransferase 13 U/L (0-41); Albumin Level 4.2 g/dL (3.5-5.2); Alkaline Phosphatase 92 U/L (40-130); Anion Gap 13.2 (5-19); Aspartate Amino Transferase 15 U/L (0-40); Blood Urea Nitrogen 23 mg/dL (8-23); Calcium 9.6 mg/dL (8.5-10.5); Carbon Dioxide 28 mmol/L (22-29); Chloride 103 mmol/L (98-107); Globulin 2.7 g/dL (1.3-4.6); Glucose 128 mg/dL (65-115); NT Pro B Type Natriuretic Pept 1852 pg/mL (0-450); Osmolality Calculated 295 mOsm/kg (285-295); Potassium 4.2 mmol/L (3.5-5.1); Sodium 140 mmol/L (136-145); Total Protein 6.9 g/dL (6.6-8.7)
--- NOTE | 2025-02-22 15:54 | ECG_ITS ---
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
[2025-02-22 17:18] VITALS: BP 134/76; PULSE 62; O2SAT 99
== END 2025-02-22 17:19 | disposition home or self-care (01) ==
PROVIDERS: Emergency Provider Family Medicine; PCP Nurse Practitioner Family
DX: R07.9 Chest pain, unspecified (principal); F03.90 Unspecified dementia, unspecified severity, without behavioral disturbance, psychotic disturbance, mood disturbance, and anxiety; Z79.82 Long term (current) use of aspirin; J44.9 Chronic obstructive pulmonary disease, unspecified; E78.5 Hyperlipidemia, unspecified; E11.9 Type 2 diabetes mellitus without complications; I11.0 Hypertensive heart disease with heart failure; I50.9 Heart failure, unspecified
CPT/HCPCS: 36415; 71045; 80053; 81001; 83880; 84484; 85025; 87077; 87086; 87186; 93005; 99285